=== PATIENT | female | born 1930 | race Caucasian/White ===

== ENCOUNTER 2017-06-04 14:38 | Inpatient (IN) | payer MEDICAID, MEDICARE ==
--- NOTE | 2017-06-04 14:52 | ED PDOC ---
Arrival/HPI - General Historian: Patient, Family - History of Present Illness Time/Duration: 1 week Symptom Onset: Gradual Symptom Course: Unchanged Quality: Stabbing Severity Level: 8 Activities at Onset: Rest Context: Home <Prashant Bowers - Last Filed: 06/04/17 18:22> <Archie Guerin DO - Last Filed: 06/04/17 20:51> - General Chief Complaint: Back Pain Time Seen by Provider: 06/04/17 14:51 - History of Present Illness Narrative History of Present Illness (Text): 87 F with PMH of DM, Seizures, HTN, chronic back pain presents to ED for complaint of Abdominal and BAck pain. Patient is [place] island[place] speaking and a poor historian. Family member bedside supplemented history. Patient states that the pain has been present for one week and has been the same. She rates the pain as 8/10. She describes it as a constant sharp pain located in flank bilaterally radiating anteriorly to abdomen. Nothing alleviates or exacerbates pain. Patient has had decreased PO intake recently. Patient states that she is compliant with medications. Admits to dysuria. Denies fever/chills, cp, sob, palpitations, n/v/d, constipation, incontinence. (Prashant Bowers) Past Medical History - Provider Review Nursing Documentation Reviewed: Yes - Travel History Have you recently traveled outside [place] w/in the past 3 mons?: No - Infectious Disease Hx of Infectious Diseases: None - Tetanus Immunization Tetanus Immunization: Unknown - Reproductive Menopause: Yes - Cardiac Hx Cardiac Disorders: Yes Hx Hypertension: Yes - Pulmonary Hx Chronic Obstructive Pulmonary Disease (COPD): Yes - Neurological Hx Neurological Disorder: Yes Hx Seizures: Yes - HEENT Hx Cataracts: Yes (bilateral sx) - Renal Hx Renal Disorder: Yes Hx Kidney Stones: Yes - Endocrine/Metabolic Hx Endocrine Disorders: Yes Hx Diabetes Mellitus Type 2: Yes - Hematological/Oncological Hx Blood Disorders: Yes Hx Anemia: Yes - Integumentary Hx Dermatological Disorder: No - Musculoskeletal/Rheumatological Hx Musculoskeletal Disorders: Yes Hx Arthritis: Yes Hx Falls: Yes - Gastrointestinal Hx Gastrointestinal Disorders: Yes Hx Gastroesophageal Reflux: Yes - Genitourinary/Gynecological Hx Genitourinary Disorders: No - Psychiatric Hx Psychophysiologic Disorder: Yes Hx Depression: Yes Hx Emotional Abuse: No Hx Physical Abuse: No Hx Substance Use: No - Surgical History Hx Cholecystectomy: Yes - Anesthesia Hx Anesthesia: Yes Hx Anesthesia Reactions: Yes Hx Malignant Hyperthermia: No - Suicidal Assessment Feels Threatened In Home Enviroment: No <RobinsonPrashant - Last Filed: 06/04/17 18:22> Family/Social History - Physician Review Nursing Documentation Reviewed: Yes Family/Social History: Unknown Family HX Smoking Status: Former Smoker Hx Alcohol Use: No Hx Substance Use: No Hx Substance Use Treatment: No <Prashant Bowers - Last Filed: 06/04/17 18:22> Allergies/Home Meds <YanasheriPrashant - Last Filed: 06/04/17 18:22> <Archie Guerin DO - Last Filed: 06/04/17 20:51> Allergies/Adverse Reactions: Allergies Penicillins Allergy (Verified 06/04/17 14:42) RASH Sulfa (Sulfonamide Antibiotics) Allergy (Verified 06/04/17 14:42) RASH Home Medications: Home Meds Medication Instructions Recorded Confirmed Insulin Human NPH/Reg [HumuLIN 10 units SC TID 06/15/14 06/04/17 70/30 (NPH/Reg)] Pro Air 2 inh INH Q4 PRN 06/15/14 06/04/17 Review of Systems - Review of Systems Constitutional: Fatigue. absent: Weight Change, Fevers, Night Sweats Eyes: absent: Vision Changes, Photophobia, Eye Pain ENT: absent: Hearing Changes, Tinnitus, TMJ Pain, Sinus Congestion Respiratory: absent: SOB, Cough, Sputum, Wheezing Cardiovascular: absent: Chest Pain, Palpitations, Syncope Gastrointestinal: Abdominal Pain. absent: Constipation, Diarrhea, Nausea, Vomiting Genitourinary Female: Dysuria. absent: Frequency, Hematuria, Vaginal Discharge Musculoskeletal: Arthralgias, Back Pain, Myalgias Skin: absent: Rash, Skin Lesions Neurological: absent: Headache, Dizziness, Focal Weakness, Seizure Endocrine: absent: Diaphoresis, Polyuria, Polydipsia, Other Hemo/Lymphatic: absent: Adenopathy, Easy Bleeding, Easy Bruising Psychiatric: absent: Anxiety, Depression, Suicidal Ideation <RobinsonPrashant - Last Filed: 06/04/17 18:22> Physical Exam Vital Signs Reviewed: Yes Temperature: Afebrile Blood Pressure: Normal Pulse: Regular Respiratory Rate: Normal Appearance: Positive for: Non-Toxic, Comfortable Pain Distress: Mild Mental Status: Positive for: Alert and Oriented X 3 - Systems Exam Head: Present: Atraumatic Pupils: Present: PERRL Extroacular Muscles: Present: EOMI Conjunctiva: Present: Normal Ears: Present: Normal Mouth: Present: Moist Mucous Membranes Pharnyx: Present: Normal Nose (External): Present: Atraumatic Nose (Internal): Present: Normal Inspection Neck: Present: Normal Range of Motion, Trachea Midline Respiratory/Chest: Present: Clear to Auscultation, Good Air Exchange. No: Respiratory Distress, Accessory Muscle Use, Wheezes, Rales, Rhonchi Cardiovascular: Present: Regular Rate and Rhythm, Normal S1, S2 Abdomen: Present: Tenderness, Normal Bowel Sounds. No: Distention, Peritoneal Signs, Rebound, Guarding, Hernias Back: Present: CVA Tenderness, Paraspinal Tenderness Upper Extremity: Present: Normal ROM, NORMAL PULSES, Neurovascularly Intact, Capillary Refill < 2s Lower Extremity: Present: NORMAL PULSES, Normal ROM, Neurovascularly Intact, Capillary Refill < 2 s Neurological: Present: GCS=15, CN II-XII Intact, Speech Normal, Motor Func Grossly Intact, Normal Sensory Function Skin: Present: Warm, Dry, Normal Color Lymphatic: No: Cervical Adenopathy, Axillary Adenopathy, Inguinal Adenopathy Psychiatric: Present: Alert, Oriented x 3, Normal Insight, Normal Concentration <Prashant Bowers - Last Filed: 06/04/17 18:22> <Archie Guerin DO - Last Filed: 06/04/17 20:51> Vital Signs Temp Pulse Resp BP Pulse Ox 06/04/17 19:32 99.7 F H 77 16 120/81 97 06/04/17 19:15 74 16 120/81 97 06/04/17 17:38 74 20 122/50 L 95 06/04/17 15:45 74 20 119/56 L 96 06/04/17 14:47 99.3 F 77 19 121/52 L 96 Medical Decision Making <Prashant Bowers - Last Filed: 06/04/17 18:22> <Archie Guerin DO - Last Filed: 06/04/17 20:51> ED Course and Treatment: CBC, CMP, VBG, Urinalysis, urine culture ordered. EKG done. IV fluids given. ABD /pelvis CT done and showed mass near cecum suspicious for malignancy or phlegmon. WBC elevated at 19K. Glucose 454 -> 330. IV Cipro and Flagyl given. Patient to be admitted under Dr. Hemphill's service. Case discussed with Dr. Hemphill he instructed to order General surgery consult, NPO diet, zofran and IV fluids. 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 (Prashant Bowers) In agreement with resident note, which includes further HPI details. Patient was seen and evaluated with resident, came up with plan and treatment together. (Archie Guerin DO) - Lab Interpretations Lab Results: 06/04/17 15:25 06/04/17 15:25 Lab Results 06/04/17 18:03: POC Glucose (mg/dL) 330 H 06/04/17 17:10: Urine Color Yellow, Urine Appearance Clear, Urine pH 6.0, Ur Specific [place] 1.015, Urine Protein Trace H, Urine Glucose (UA) 250 H, Urine Ketones Negative, Urine Blood Negative, Urine Nitrate Negative, Urine Bilirubin Negative, Urine Urobilinogen 0.2, Ur Leukocyte Esterase Negative, Urine RBC 0 - 2, Urine WBC 0 - 2, Ur Epithelial Cells 0 - 2, Urine Bacteria Few 06/04/17 16:00: pO2 28 L, VBG pH 7.37, VBG pCO2 52.0, VBG HCO3 30.1 H, VBG Total CO2 31.7 H, VBG O2 Sat (Calc) 57.1, VBG Base Excess 3.8 H, VBG Potassium 4.5, Glucose 446 H*, Lactate 1.4, FiO2 21.0, Sodium 129.0 L, Chloride 94.0 L, Venous Blood Potassium 4.5 06/04/17 15:25: Sodium 131 L, Potassium 4.6, Chloride 92 L, Carbon Dioxide 27, Anion Gap 17, BUN 29 H, Creatinine 0.9, Est GFR ( Amer) > 60, Est GFR ( Non-Af Amer) 59, Random Glucose 475 H* D, Calcium 9.9, Total Bilirubin 1.5 H, AST 26, ALT 13, Alkaline Phosphatase 130, Total Protein 8.5 H, Albumin 3.7, Globulin 4.8, Albumin/Globulin Ratio 0.8 L, Lipase 60 06/04/17 15:25: WBC 19.8 H D, RBC 4.14, Hgb 11.5 L, Hct 34.8 L, MCV 84.1, MCH 27.8, MCHC 33.0, RDW 13.9, Plt Count 376, MPV 10.8, Gran % 77.9 H, Lymph % (Auto ) 11.8 L, [place] % (Auto) 9.4 H, Eos % (Auto) 0.7 L, Baso % (Auto) 0.2, Gran # 15.45 H, Lymph # 2.3, [place] # 1.9 H, Eos # 0.1, Baso # 0.04 06/04/17 14:54: POC Glucose (mg/dL) 454 H* - RAD Interpretation Radiology Orders: 06/04/17 16:00 ABD & PELVIS W/O PO OR IV CONT [CT] Stat - Medication Orders Current Medication Orders: Sodium Chloride (Sodium Chloride 0.9%) 1,000 mls @ 100 mls/hr IV .Q10H STA Stop: 06/05/17 01:01 Last Admin: 06/04/17 15:16 Dose: 100 mls/hr Metronidazole (Flagyl) 500 mg in 100 mls @ 100 mls/hr IVPB Q8 ARTURO PRN Reason: Protocol Ceftriaxone Sodium (Rocephin 2 Gm Ivpb) 2 gm in 100 mls @ 100 mls/hr IVPB DAILY ARTURO PRN Reason: Protocol Discontinued Medications Sodium Chloride (Sodium Chloride 0.9%) 500 mls @ 999 mls/hr IV .Q31M STA Stop: 06/04/17 17:03 Last Admin: 06/04/17 17:39 Dose: 999 mls/hr Ciprofloxacin (Cipro 400mg/200ml Dsw) 400 mg in 200 mls @ 133.3 mls/hr IVPB STAT STA PRN Reason: Protocol Stop: 06/04/17 19:46 Last Admin: 06/04/17 19:03 Dose: 133.3 mls/hr Metronidazole (Flagyl) 500 mg in 100 mls @ 100 mls/hr IVPB STAT STA PRN Reason: Protocol Stop: 06/04/17 19:15 Insulin Human Regular (Humulin R) 6 units IVP STAT STA Stop: 06/04/17 16:33 Last Admin: 06/04/17 17:42 Dose: 6 units <Prashant Bowers Last Filed: 06/04/17 18:22> - PA / REGISTERED REPRESENTATIVE / Resident Statement ELIZABETH has reviewed & agrees with the documentation as recorded. ELIZABETH has examined the patient and agrees with the treatment plan. - Scribe Statement The provider has reviewed the documentation as recorded by the Scribe <Archie Guerin DO - Last Filed: 06/04/17 20:51> - Scribe Statement Vicky Owens Provider Scribe Attestation: All medical record entries made by the Scribe were at my direction and personally dictated by me. I have reviewed the chart and agree that the record accurately reflects my personal performance of the history, physical exam, medical decision making, and the department course for this patient. I have also personally directed, reviewed, and agree with the discharge instructions and disposition. (Archie Guerin DO) Disposition/Present on Arrival - Present on Arrival Any Indicators Present on Arrival: Yes History of DVT/PE: No History of Uncontrolled Diabetes: Yes Urinary Catheter: No History of Decub. Ulcer: No History Surgical Site Infection Following: None - Disposition Have Diagnosis and Disposition been Completed?: Yes Disposition Time: 18:10 Patient Plan: Admission <Prashant Bowers - Last Filed: 06/04/17 18:22> - Present on Arrival Any Indicators Present on Arrival: No History of Uncontrolled Diabetes: No - Disposition Have Diagnosis and Disposition been Completed?: Yes <Archie Guerin DO - Last Filed: 06/04/17 20:51> - Disposition Diagnosis: Abdominal pain Disposition: HOSPITALIZED Patient Problems: Current Active Problems Problem Status Onset Abdominal pain Acute Condition: FAIR
[2017-06-04] MEDS ORDERED: Sodium Chloride 0.9% 1,000 ML IV STA (15:02)
[2017-06-04 15:53] LABS: ALB/GLOB RATIO 0.8 (1.1-1.8); ALBUMIN 3.7 g/dL (3.0-4.8); ALT/SGPT 13 U/L (7-56); AST/SGOT 26 U/L (15-39); BASO # 0.04 K/mm3 (0.0-2.0); BASO % 0.2 % (0.0-3.0); BLOOD UREA NITROGEN 29 mg/dL (7-21); CALCIUM 9.9 mg/dL (8.4-10.5); EOS # 0.1 (0.0-0.7); EOS % 0.7 % (1.5-5.0); GFR AFRICAN-AMERICAN > 60; GFR NON-AFRICAN AMERICAN 59; GRAN # 15.45 (1.4-6.5); GRAN % 77.9 % (50.0-68.0); HEMOGLOBIN 11.5 gm/dL (12.0-16.0); LIPASE 60 U/L (23-300); LYMPH # 2.3 (1.2-3.4); LYMPH % 11.8 % (22.0-35.0); MEAN CELL VOLUME 84.1 fL (80.0-105.0); MEAN CORPUSCULAR HEMOGLOBIN 27.8 pg (25.0-35.0); MEAN PLATELET VOLUME 10.8 fl (7.0-11.0); MONO # 1.9 (0.1-0.6); MONO % 9.4 % (1.0-6.0); PLATELET COUNT 376 10^3/uL (120.0-450.0); RBC 4.14 10^6/uL (3.5-6.1); RED CELL DISTRIBUTION WIDTH 13.9 % (11.5-14.5); WHITE BLOOD COUNT 19.8 10^3/ul (4.5-11.0)
[2017-06-04 16:13] LABS: VENOUS BLOOD GAS BASE EXCESS 3.8 mmol/L (0.0-2.0); VENOUS BLOOD GAS PO2 28 mm/Hg (30-55); VENOUS BLOOD PH 7.37 (7.32-7.43)
[2017-06-04] MEDS ORDERED: Insulin Regular 1 UNITS/0.01 ML ML IVP STA (16:32)
[2017-06-04] MEDS ORDERED: Sodium Chloride 0.9% 500 ML IV STA (16:33)
--- NOTE | 2017-06-04 16:50 | CT ---
PROCEDURE: CT Abdomen and Pelvis without intravenous contrast HISTORY: b/l flank pain - pyelo vs. kidney stone COMPARISON: Comparison is made to the previous study dated 08/25/2015 TECHNIQUE: Axial and reformatted coronal and sagittal CT images of the abdomen and pelvis were obtained without IV or oral contrast administration.. Contrast Dose: 0 Radiation dose: Total exam DLP = 711.89 mGy-cm. This CT exam was performed using one or more of the following dose reduction techniques: Automated exposure control, adjustment of the mA and/or kV according to patient size, and/or use of iterative reconstruction technique. FINDINGS: LOWER THORAX: No evidence of acute pathology or pleural effusion LIVER: Mild hepatomegaly is again noted. GALLBLADDER AND BILE DUCTS: Patient status post cholecystectomy PANCREAS: Small size pancreas. The main pancreatic duct is not dilated SPLEEN: Unremarkable. ADRENALS: Unremarkable. No mass. KIDNEYS AND URETERS: There are bilateral small nonobstructing renal calculi larger and more on the right again seen. No evidence of significant hydronephrosis. The ureters are not dilated. Lobular appearance and cortical defects of the right kidney are again noted. VASCULATURE: Unremarkable. No aortic aneurysm. BOWEL: There is mass like opacity at or adjacent to the cecum measures 7.8 x 6 centimeter surrounding with fat stranding and mildly enlarged lymph nodes. The differential diagnosis includes malignant neoplasm of the ileocecal junction or cecal mass versus large phlegmon due to diverticulitis or less likely a appendicitis. No evidence of bowel obstruction. APPENDIX: The appendix is not clearly visualized in this study. PERITONEUM: Unremarkable. No free fluid. No free air. LYMPH NODES: Unremarkable. No enlarged lymph nodes. BLADDER: Unremarkable. REPRODUCTIVE: No significant change in the uterus and adnexa since the previous exam. The adnexa are slightly enlarged for the patient's age. BONES: Diffuse osteopenia is noted. Advanced degenerative changes at the mid and lower spine are again noted. OTHER FINDINGS: None. IMPRESSION: Oval-shaped density/mass at the right lower abdomen at or adjacent to the cecum may represent malignant neoplasm of the cecum versus less likely large phlegmon due to bowel perforation or appendicitis. Surrounding fat stranding in the right lower abdomen associated with mildly enlarged mesenteric lymph nodes. Bilateral small nonobstructing renal calculi larger and more on the right again noted. No evidence of hydronephrosis.
[2017-06-04 17:51] LABS: URINE BILIRUBIN NEGATIVE (NEGATIVE); URINE BLOOD NEGATIVE (NEGATIVE); URINE GLUCOSE (UA) 250 mg/dL (NEGATIVE); URINE LEUKOCYTE ESTERASE NEGATIVE Leu/uL (NEGATIVE); URINE NITRATE NEGATIVE (NEGATIVE); URINE PROTEIN TRACE mg/dL (<30 mg/dL); URINE UROBILINOGEN 0.2 E.U./dL (<1 E.U./dL)
[2017-06-04 17:52] LABS: URINE APPEARANCE CLEAR (CLEAR); URINE COLOR YELLOW (YELLOW)
[2017-06-04 18:02] LABS: URINE BACTERIA FEW (NEG); URINE EPITHELIAL CELLS 0 - 2 /hpf (0-5); URINE RBC 0 - 2 /hpf (0-2); URINE WBC 0 - 2 /hpf (0-6)
[2017-06-04] MEDS ORDERED: metroNIDAZOLE IV 500 mg/100 ml 500 MG/100 ML BAG IVPB STA (18:16)
[2017-06-04] MEDS ORDERED: Ciprofloxacin 400mg/200ml D5W 400 MG/200 ML BAG IVPB STA (18:16)
--- NOTE | 2017-06-04 19:11 | CP.PCM.CON ---
History of Present Illness - History of Present Illness History of Present Illness: General Surgery Dr. Larios 87 y/o F w/ PMHx of HTN, COPD, seizures, DM2, nephrolithiasis presents to the ED c/o R-sided abd pain x4days. Pain localized in R lumbar region w/ radiation across elbert-umbilical region. Pt denies having this pain before. Pain improves w / BM and worsens w/ movement or palpation. Pt admits to subjective F/C, constipation, and melena. Pt denies N/V, diarrhea, CP, SOB. PMHx: see above, anemia, arthritis, CKD, GERD meds: reviewed in chart All: PCN, Sulfa PSHx: tho rainey (2015), cataract surgery x2 SHx: denies tobacco, EtOH, drugs FHx: non-contributory Review of Systems - Review of Systems All systems: reviewed and no additional remarkable complaints except (see HPI) Past Patient History - Infectious Disease Hx of Infectious Diseases: None - Tetanus Immunizations Tetanus Immunization: Unknown - Past Social History Smoking Status: Former Smoker - CARDIAC Hx Cardiac Disorders: Yes Hx Hypertension: Yes - PULMONARY Hx Chronic Obstructive Pulmonary Disease (COPD): Yes - NEUROLOGICAL Hx Neurological Disorder: Yes Hx Seizures: Yes - HEENT Hx Cataracts: Yes (bilateral sx) - RENAL Hx Chronic Kidney Disease: Yes Hx Kidney Stones: Yes - ENDOCRINE/METABOLIC Hx Endocrine Disorders: Yes Hx Diabetes Mellitus Type 2: Yes - HEMATOLOGICAL/ONCOLOGICAL Hx Blood Disorders: Yes Hx Anemia: Yes - INTEGUMENTARY Hx Dermatological Problems: No - MUSCULOSKELETAL/RHEUMATOLOGICAL Hx Musculoskeletal Disorders: Yes Hx Arthritis: Yes Hx Falls: Yes - GASTROINTESTINAL Hx Gastrointestinal Disorders: Yes Hx Gastroesophageal Reflux: Yes - GENITOURINARY/GYNECOLOGICAL Hx Genitourinary Disorders: No - PSYCHIATRIC Hx Psychophysiologic Disorder: Yes Hx Depression: Yes Hx Emotional Abuse: No Hx Physical Abuse: No Hx Substance Use: No - SURGICAL HISTORY Hx Cholecystectomy: Yes - ANESTHESIA Hx Anesthesia: Yes Hx Anesthesia Reactions: Yes Hx Malignant Hyperthermia: No Meds Allergies/Adverse Reactions: Allergies Allergy/AdvReac Type Severity Reaction Status Date / Time Penicillins Allergy RASH Verified 06/04/17 14:42 Sulfa (Sulfonamide Allergy RASH Verified 06/04/17 14:42 Antibiotics) - Medications Medications: Current Medications Sodium Chloride (Sodium Chloride 0.9%) 1,000 mls @ 100 mls/hr IV .Q10H STA Stop: 06/05/17 01:01 Last Admin: 06/04/17 15:16 Dose: 100 mls/hr Ciprofloxacin (Cipro 400mg/200ml Dsw) 400 mg in 200 mls @ 133.3 mls/hr IVPB STAT STA PRN Reason: Protocol Stop: 06/04/17 19:46 Last Admin: 06/04/17 19:03 Dose: 133.3 mls/hr Metronidazole (Flagyl) 500 mg in 100 mls @ 100 mls/hr IVPB STAT STA PRN Reason: Protocol Stop: 06/04/17 19:15 Physical Exam - Constitutional Appears: Non-toxic, No Acute Distress - Head Exam Head Exam: NORMAL INSPECTION - Eye Exam Eye Exam: Normal appearance - ENT Exam ENT Exam: Mucous Membranes Moist - Respiratory Exam Respiratory Exam: NORMAL BREATHING PATTERN. absent: Accessory Muscle Use, Respiratory Distress - Cardiovascular Exam Cardiovascular Exam: absent: Bradycardia, Tachycardia - GI/Abdominal Exam GI & Abdominal Exam: Soft, Tenderness (R lumbar/elbert-umbilical region). absent : Distended, Firm, Guarding - Extremities Exam Extremities exam: Positive for: tenderness. Negative for: pedal edema - Back Exam Back exam: CVA tenderness (R) - Neurological Exam Neurological exam: Alert, Oriented x3 - Psychiatric Exam Psychiatric exam: Normal Affect, Normal Mood - Skin Skin Exam: Dry, Intact, Normal Color, Warm Results - Vital Signs Recent Vital Signs: Last Vital Signs Temp 99.3 F 06/04/17 14:47 Pulse 74 06/04/17 17:38 Resp 20 06/04/17 17:38 BP 122/50 L 06/04/17 17:38 Pulse Ox 95 06/04/17 17:38 - Labs Result Diagrams: 06/04/17 15:25 06/04/17 15:25 Labs: Laboratory Results - last 24 hr 06/04/17 06/04/17 06/04/17 14:54 15:25 15:25 WBC 19.8 H D RBC 4.14 Hgb 11.5 L Hct 34.8 L MCV 84.1 MCH 27.8 MCHC 33.0 RDW 13.9 Plt Count 376 MPV 10.8 Gran % 77.9 H Lymph % (Auto) 11.8 L [place] % (Auto) 9.4 H Eos % (Auto) 0.7 L Baso % (Auto) 0.2 Gran # 15.45 H Lymph # 2.3 [place] # 1.9 H Eos # 0.1 Baso # 0.04 pO2 VBG pH VBG pCO2 VBG HCO3 VBG Total CO2 VBG O2 Sat (Calc) VBG Base Excess VBG Potassium Glucose Lactate FiO2 Sodium 131 L Potassium 4.6 Chloride 92 L Carbon Dioxide 27 Anion Gap 17 BUN 29 H Creatinine 0.9 Est GFR ( Amer) > 60 Est GFR (Non-Af Amer) 59 POC Glucose (mg/dL) 454 H* Random Glucose 475 H* D Calcium 9.9 Total Bilirubin 1.5 H AST 26 ALT 13 Alkaline Phosphatase 130 Total Protein 8.5 H Albumin 3.7 Globulin 4.8 Albumin/Globulin Ratio 0.8 L Lipase 60 Venous Blood Potassium Urine Color Urine Appearance Urine pH Ur Specific [place] Urine Protein Urine Glucose (UA) Urine Ketones Urine Blood Urine Nitrate Urine Bilirubin Urine Urobilinogen Ur Leukocyte Esterase Urine RBC Urine WBC Ur Epithelial Cells Urine Bacteria 06/04/17 06/04/17 06/04/17 16:00 17:10 18:03 WBC RBC Hgb Hct MCV MCH MCHC RDW Plt Count MPV Gran % Lymph % (Auto) [place] % (Auto) Eos % (Auto) Baso % (Auto) Gran # Lymph # [place] # Eos # Baso # pO2 28 L VBG pH 7.37 VBG pCO2 52.0 VBG HCO3 30.1 H VBG Total CO2 31.7 H VBG O2 Sat (Calc) 57.1 VBG Base Excess 3.8 H VBG Potassium 4.5 Glucose 446 H* Lactate 1.4 FiO2 21.0 Sodium 129.0 L Potassium Chloride 94.0 L Carbon Dioxide Anion Gap BUN Creatinine Est GFR ( Amer) Est GFR (Non-Af Amer) POC Glucose (mg/dL) 330 H Random Glucose Calcium Total Bilirubin AST ALT Alkaline Phosphatase Total Protein Albumin Globulin Albumin/Globulin Ratio Lipase Venous Blood Potassium 4.5 Urine Color Yellow Urine Appearance Clear Urine pH 6.0 Ur Specific [place] 1.015 Urine Protein Trace H Urine Glucose (UA) 250 H Urine Ketones Negative Urine Blood Negative Urine Nitrate Negative Urine Bilirubin Negative Urine Urobilinogen 0.2 Ur Leukocyte Esterase Negative Urine RBC 0 - 2 Urine WBC 0 - 2 Ur Epithelial Cells 0 - 2 Urine Bacteria Few - Imaging and Cardiology CT scan - abdomen Status: Image reviewed by me, Report reviewed by me Assessment & Plan - Assessment and Plan (Free Text) Assessment: 87 y/o F w/ abd pain, ileocecal mass present on CT scan - NPO, IVF - IV Abx: Rocephin, Flagyl - pain management - Zofran if needed for nausea - GI consult: known pt of Dr. Joyner - f/u recs - recommend repeat CT tomorrow w/ PO contrast - GI/DVT PPx Will discuss w/ Dr. Ric Ortiz DO PGY2
[2017-06-04] MEDS: Sodium Chloride 0.45% 1,000 ML IV SCH (21:20)
[2017-06-04] MEDS: Insulin Reg-HIGH-Coverage SC SCH (21:48)
[2017-06-04] MEDS: metroNIDAZOLE IV 500 mg/100 ml 500 MG/100 ML BAG IVPB SCH (21:55)
[2017-06-04] MEDS: Morphine 4 mg/ml ISec IVP PRN (21:55)
[2017-06-05] MEDS: Morphine 4 mg/ml ISec IVP PRN ×3 (02:02→20:42)
[2017-06-05] MEDS: metroNIDAZOLE IV 500 mg/100 ml 500 MG/100 ML BAG IVPB SCH ×3 (05:59→22:00)
[2017-06-05] MEDS: Aztreonam 1 Gm in NS 100mL 100 ML IVPB SCH ×3 (06:58→22:00)
[2017-06-05 07:47] LABS: BASO # 0.03 K/mm3 (0.0-2.0); BASO % 0.1 % (0.0-3.0); EOS # 0.1 (0.0-0.7); EOS % 0.5 % (1.5-5.0); GRAN # 18.61 (1.4-6.5); GRAN % 82.9 % (50.0-68.0); HEMOGLOBIN 10.5 gm/dL (12.0-16.0); LYMPH # 1.7 (1.2-3.4); LYMPH % 7.4 % (22.0-35.0); MEAN CELL VOLUME 84.5 fL (80.0-105.0); MEAN CORPUSCULAR HEMOGLOBIN 27.6 pg (25.0-35.0); MEAN CORPUSCULAR HGB CONC 32.7 g/dl (31.0-37.0); MEAN PLATELET VOLUME 10.5 fl (7.0-11.0); MONO % 9.1 % (1.0-6.0); PLATELET COUNT 327 10^3/uL (120.0-450.0); WHITE BLOOD COUNT 22.5 10^3/ul (4.5-11.0)
[2017-06-05 07:59] LABS: ALB/GLOB RATIO 0.7 (1.1-1.8); ALBUMIN 3.1 g/dL (3.0-4.8); ALT/SGPT 23 U/L (7-56); AST/SGOT 33 U/L (15-39); BLOOD UREA NITROGEN 26 mg/dL (7-21); CALCIUM 9.4 mg/dL (8.4-10.5); GFR AFRICAN-AMERICAN > 60; GFR NON-AFRICAN AMERICAN 59
[2017-06-05] MEDS: Insulin Reg-HIGH-Coverage SC SCH ×2 (08:40→11:39)
--- NOTE | 2017-06-05 09:27 | CARD ---
APPROVED REPORT EKG Measurement Heart [id number] <Conclusion> Sinus rhythm with marked sinus arrhythmia Otherwise normal ECG
[2017-06-05] MEDS: Metoprolol Succinate 25 mg XL Tab PO SCH (09:54)
[2017-06-05] MEDS: POLYETHYLENE GLYCOL 3350 17 GM/Dose PACKET PO SCH (09:54)
[2017-06-05] MEDS ORDERED: cefTRIAXone 2 GM IN NS 2 GM/100 ML BAG IVPB SCH (10:00)
[2017-06-05] MEDS ORDERED: Ciprofloxacin 400mg/200ml D5W 400 MG/200 ML BAG IVPB SCH (10:00)
--- NOTE | 2017-06-05 11:04 | CP.PCM.PN ---
Subjective - Date & Time of Evaluation Date of Evaluation: 06/05/17 Time of Evaluation: 10:59 - Subjective Subjective: General Surgery Progress note for Dr. Larios PT S&E at bedside. Patient states nausea and pain started four days ago and has never happened before. Patient had a lot of gas at bedside and eructation. Patient eructated at bedside and showed signs of nausea. Patient admits to constipation. Patient denies f/c, diarrhea, melena. Objective - Vital Signs/Intake and Output Vital Signs (last 24 hours): Temp Pulse Resp BP Pulse Ox 98.3 F 82 20 156/58 H 97 06/05/17 08:23 06/05/17 08:23 06/05/17 08:23 06/05/17 09:54 06/05/17 08:23 Intake and Output: 06/05/17 06/05/17 06:59 18:59 Intake Total 0 Balance 0 - Medications Medications: Current Medications Hydralazine HCl (Apresoline) 10 mg PO QID PRN PRN Reason: Systolic Blood Pressure Last Admin: 06/04/17 21:54 Dose: 10 mg Metronidazole (Flagyl) 500 mg in 100 mls @ 100 mls/hr IVPB Q8 ARTURO PRN Reason: Protocol Last Admin: 06/05/17 05:59 Dose: 100 mls/hr Sodium Chloride (Sodium Chloride 0.45%) 1,000 mls @ 40 mls/hr IV .Q24H [facility] Last Admin: 06/04/17 21:20 Dose: 40 mls/hr Aztreonam (Azactam 1 Gm) 100 mls @ 100 mls/hr IVPB Q8 ARTURO PRN Reason: Protocol Stop: 06/11/17 06:46 Last Admin: 06/05/17 06:58 Dose: 100 mls/hr Insulin Human Regular (Humulin R High) 0 units SC ACHS ARTURO PRN Reason: Protocol Last Admin: 06/05/17 08:40 Dose: 7 units Levetiracetam (Keppra) 250 mg PO BID [facility] Last Admin: 06/05/17 09:55 Dose: 250 mg Metoprolol Succinate (Toprol Xl) 25 mg PO DAILY [facility] Last Admin: 06/05/17 09:54 Dose: 25 mg Montelukast Sodium (Singulair) 10 mg PO HS [facility] Morphine Sulfate (Morphine) 4 mg IVP Q4H PRN PRN Reason: moderate to severe pain Last Admin: 06/05/17 06:00 Dose: 4 mg Ondansetron HCl (Zofran Inj) 4 mg IVP Q8H PRN PRN Reason: Nausea/Vomiting Last Admin: 06/05/17 07:28 Dose: 4 mg Pantoprazole Sodium (Protonix Inj) 40 mg IVP DAILY [facility] Last Admin: 06/05/17 09:55 Dose: 40 mg Polyethylene Glycol (Miralax) 17 gm PO DAILY [facility] Last Admin: 06/05/17 09:54 Dose: Not Given - Labs Labs: 06/05/17 07:00 06/05/17 07:00 - Head Exam Head Exam: ATRAUMATIC, NORMAL INSPECTION Assessment and Plan - Assessment and Plan (Free Text) Assessment: 87F presents with abdominal pain, ileocecal mass. Plan: f/u GI recommendation for colonoscopy f/u CT 06/05 w/ PO and IV contrast will schedule OR for continue observing on the floor. when patient is stable enough, transfer to TCU to monitor prior to surgery discussed with Dr. iRc Warren, PGY1
[2017-06-05 12:21] VITALS: BMI 32.2
--- NOTE | 2017-06-05 12:28 | CP.PCM.CON ---
History of Present Illness - History of Present Illness History of Present Illness: 87 year old female with PMH of COPD, HTN, DM, seizure disorder, history of nephrolithiasis, S/P laparoscopic cholecystectomy, S/P cataract surgery was brought in to [facility] because of abdominal pain, which was on the right side and periumbilical area. The patient has no diarrhea, no vomiting , no nausea, no headache or dizziness, no cough or SOB, no chest pain, no fever or chills. In the ED, CT scan of the abdomen and pelvis showed possible cecal mass or phlegmon. The patient was also noted to have leukocytosis. Infectious Diseases consult is requested to further evaluate and manage. General Surgery Dr. Larios 87 y/o F w/ PMHx of HTN, COPD, seizures, DM2, nephrolithiasis presents to the ED c/o R-sided abd pain x4days. Pain localized in R lumbar region w/ radiation across elbert-umbilical region. Pt denies having this pain before. Pain improves w / BM and worsens w/ movement or palpation. Pt admits to subjective F/C, constipation, and melena. Pt denies N/V, diarrhea, CP, SOB. PMHx: see above, anemia, arthritis, CKD, GERD meds: reviewed in chart All: PCN, Sulfa PSHx: tho rainey (2015), cataract surgery x2 SHx: denies tobacco, EtOH, drugs FHx: non-contributory Review of Systems - Review of Systems All systems: reviewed and no additional remarkable complaints except (as per HPI ) Past Patient History - Infectious Disease Hx of Infectious Diseases: None - Tetanus Immunizations Tetanus Immunization: Unknown - Past Social History Smoking Status: Former Smoker - CARDIAC Hx Cardiac Disorders: Yes Hx Hypertension: Yes - PULMONARY Hx Chronic Obstructive Pulmonary Disease (COPD): Yes - NEUROLOGICAL Hx Neurological Disorder: Yes Hx Seizures: Yes - HEENT Hx Cataracts: Yes (bilateral sx) - RENAL Hx Chronic Kidney Disease: Yes Hx Kidney Stones: Yes - ENDOCRINE/METABOLIC Hx Endocrine Disorders: Yes Hx Diabetes Mellitus Type 2: Yes - HEMATOLOGICAL/ONCOLOGICAL Hx Blood Disorders: Yes Hx Anemia: Yes - INTEGUMENTARY Hx Dermatological Problems: No - MUSCULOSKELETAL/RHEUMATOLOGICAL Hx Musculoskeletal Disorders: Yes Hx Arthritis: Yes Hx Falls: Yes - GASTROINTESTINAL Hx Gastrointestinal Disorders: Yes Hx Gastroesophageal Reflux: Yes - GENITOURINARY/GYNECOLOGICAL Hx Genitourinary Disorders: No - PSYCHIATRIC Hx Psychophysiologic Disorder: Yes Hx Depression: Yes Hx Emotional Abuse: No Hx Physical Abuse: No - SURGICAL HISTORY Hx Cholecystectomy: Yes - ANESTHESIA Hx Anesthesia: Yes Hx Anesthesia Reactions: Yes Hx Malignant Hyperthermia: No Meds Allergies/Adverse Reactions: Allergies Allergy/AdvReac Type Severity Reaction Status Date / Time Penicillins Allergy RASH Verified 06/04/17 14:42 Sulfa (Sulfonamide Allergy RASH Verified 06/04/17 14:42 Antibiotics) - Medications Medications: Current Medications Hydralazine HCl (Apresoline) 10 mg PO QID PRN PRN Reason: Systolic Blood Pressure Last Admin: 06/04/17 21:54 Dose: 10 mg Metronidazole (Flagyl) 500 mg in 100 mls @ 100 mls/hr IVPB Q8 [facility] PRN Reason: Protocol Last Admin: 06/05/17 05:59 Dose: 100 mls/hr Ceftriaxone Sodium (Rocephin 2 Gm Ivpb) 2 gm in 100 mls @ 100 mls/hr IVPB DAILY [facility] PRN Reason: Protocol Sodium Chloride (Sodium Chloride 0.45%) 1,000 mls @ 40 mls/hr IV .Q24H [facility] Last Admin: 06/04/17 21:20 Dose: 40 mls/hr Ciprofloxacin (Cipro 400mg/200ml Dsw) 400 mg in 200 mls @ 133.3 mls/hr IVPB Q12 [facility] PRN Reason: Protocol Stop: 06/05/17 11:31 Insulin Human Regular (Humulin R High) 0 units SC ACHS [facility] PRN Reason: Protocol Last Admin: 06/04/17 21:48 Dose: Not Given Levetiracetam (Keppra) 250 mg PO BID [facility] Metoprolol Succinate (Toprol Xl) 25 mg PO DAILY [facility] Montelukast Sodium (Singulair) 10 mg PO HS [facility] Morphine Sulfate (Morphine) 4 mg IVP Q4H PRN PRN Reason: moderate to severe pain Last Admin: 06/05/17 06:00 Dose: 4 mg Ondansetron HCl (Zofran Inj) 4 mg IVP Q8H PRN PRN Reason: Nausea/Vomiting Last Admin: 06/05/17 01:04 Dose: 4 mg Pantoprazole Sodium (Protonix Inj) 40 mg IVP DAILY [facility] Polyethylene Glycol (Miralax) 17 gm PO DAILY [facility] Physical Exam - Constitutional Appears: Non-toxic, No Acute Distress - Head Exam Head Exam: NORMAL INSPECTION - ENT Exam ENT Exam: Mucous Membranes Moist - Neck Exam Neck exam: Negative for: Meningismus - Respiratory Exam Respiratory Exam: Decreased Breath Sounds - Cardiovascular Exam Cardiovascular Exam: +S1, +S2 - GI/Abdominal Exam GI & Abdominal Exam: Soft, Tenderness (mild, right lower quadrant area). absent : Distended, Firm, Guarding, Rebound, Rigid Results - Vital Signs Recent Vital Signs: Last Vital Signs Temp 98.9 F 06/05/17 00:00 Pulse 77 06/05/17 00:00 Resp 20 06/05/17 00:00 BP 130/60 06/05/17 00:00 Pulse Ox 96 06/05/17 00:00 - Labs Result Diagrams: 06/05/17 07:00 06/05/17 07:00 Labs: Laboratory Results - last 24 hr 06/04/17 21:34 POC Glucose (mg/dL) 290 H Assessment & Plan - Assessment and Plan (Free Text) Plan: Assessment Systemic Inflammatory Response Syndrome, R/O sepsis from right lower quadrant phelgmon from possible cecal mass COPD HTN DM seizure disorder history of nephrolithiasis S/P laparoscopic cholecystectomy S/P cataract surgery obesity with BMI 32 Plan Started patient on Azactam and flagyl and Vancomycin and will follow up blood cx , plan of Surgery and GI will monitor clinically
[2017-06-05] MEDS ORDERED: Iohexol 240 (50 ml) ONE (13:27)
[2017-06-05] MEDS ORDERED: Iohexol 350 MG/100 ML VIAL ONE (15:54)
[2017-06-05] MEDS: Insulin Reg-LOW-Coverage SC SCH ×2 (17:31→22:00)
--- NOTE | 2017-06-05 17:56 | CT ---
PROCEDURE: CT abdomen and pelvis dated 06/05/2017 HISTORY: Ileocecal mass. COMPARISON: None. Comparison made with prior study dated 06/04/2017 at 1613 hours TECHNIQUE: Contiguous helical/ transaxial images of the abdomen and pelvis. Oral contrast was administered. No IV contrast given. Coronal and Sagittal reformats generated. Radiation dose: Total exam DLP = 960.18 mGy-cm. This CT exam was performed using one or more of the following dose reduction techniques: Automated exposure control, adjustment of the mA and/or kV according to patient size, and/or use of iterative reconstruction technique. FINDINGS: LOWER THORAX: Minor passive atelectasis both lung bases however lung bases are otherwise clear. No infiltrate effusion or basilar pneumothorax. There is a small to medium size hiatal hernia with wall thickening of the distal esophagus that could be due to protrusion of gastric mucosa. Possibility of esophagitis not excluded. There is also small amount of oral contrast material within the distal esophagus that could be due to dysmotility or gastroesophageal reflux. LIVER: Liver exhibits normal size measuring approximately 11.2 cm in CC dimension. Mild fatty hepatic infiltration suspected. No obvious hepatic mass or collection. Portal and splenic veins are opacified. GALLBLADDER AND BILE DUCTS: Re- demonstrated are changes of cholecystectomy with absent gallbladder and metallic clips in the gallbladder fossa PANCREAS: The pancreas is atrophic and fatty replaced unchanged. No obvious pancreatic mass or collection. . SPLEEN: Spleen exhibits normal size and attenuation pattern without mass collection or ADRENALS: Small approximately 15.4 mm elliptical shaped left adrenal nodule. Right adrenal gland unremarkable. . KIDNEYS AND URETERS: Multiple tiny nonobstructing calculi seen throughout the right kidney with a 1 or 2 punctate calcifications left kidney. There appears to be cortical scarring changes both kidneys right more significant than left. No evidence of hydronephrosis. . BLADDER: The urinary bladder is physiologically distended. No evidence of intraluminal urinary bladder calculi. REPRODUCTIVE: Uterus appears unremarkable and unchanged from prior study. Prominent adnexa for patient's age. APPENDIX: The appendix is not seen with complete certainty. BOWEL: Re- demonstrated is a heterogeneous enhancing rounded soft tissue mass density at the level of the cecum as/ileocecal valve. These findings are of uncertain etiology though differential diagnosis would include inflammatory/ infectious process such is ruptured appendix, typhlitis or right-sided acute diverticulitis. Possibility of perforated colon carcinoma with surrounding inflammation not excluded. Clinical correlation recommended. Infiltration changes are seen in the adjacent surrounding mesentery. PERITONEUM: No gross free air or fluid. Small fat containing umbilical hernia. LYMPH NODES: Unremarkable. No enlarged lymph nodes. VASCULATURE: No evidence of aortic aneurysm. . There is localized atherosclerotic plaque projecting into the posterior margin of the nominal aorta at the level of the SMA. BONES: Multilevel degenerative spondylosis of the lower thoracic and lumbar spine. OTHER FINDINGS: None. IMPRESSION: Re- demonstrated is a large heterogeneous cecal masslike density with areas of enhancement and low attenuation. Infiltration changes in the adjacent mesenteric. Findings are of uncertain etiology though differential diagnosis would include inflammatory/infectious process such is ruptured appendix, typhlitis or right-sided acute diverticulitis. The possibility of a perforated colon carcinoma with surrounding inflammation not excluded. Clinical correlation recommended. Re- demonstrated are the multiple small nonobstructing calculi both kidneys. Cortical scarring changes right kidney. Status post cholecystectomy. See above discussion for additional findings and details.
--- NOTE | 2017-06-05 20:50 | CP.PCM.PN ---
Subjective - Date & Time of Evaluation Date of Evaluation: 06/05/17 Time of Evaluation: 20:47 - Subjective Subjective: Patient was seen because nurse said she was "Completely out of it" and they have applied restraints. She is trying to get out of bed.Has pulled out her heparin lock. Does not respond to any questions. 87 year old woman admitted with right sided and periumbilical abdominal pain, back pain. PMH:HTN,Asthma, COPD, DM,GERD, Seizure , dementia, depression, fall , laparoscopic cholecystectomy, nephrolithiasis, Objective - Vital Signs/Intake and Output Vital Signs (last 24 hours): Temp Pulse Resp BP Pulse Ox 97.2 F L 68 18 134/57 L 95 06/05/17 16:30 06/05/17 16:30 06/05/17 16:30 06/05/17 16:30 06/05/17 16:30 Intake and Output: 06/05/17 06/06/17 18:59 06:59 Intake Total 0 Output Total 200 Balance -200 - Medications Medications: Current Medications Hydralazine HCl (Apresoline) 10 mg PO QID PRN PRN Reason: Systolic Blood Pressure Last Admin: 06/04/17 21:54 Dose: 10 mg Metronidazole (Flagyl) 500 mg in 100 mls @ 100 mls/hr IVPB Q8 [facility] PRN Reason: Protocol Last Admin: 06/05/17 13:12 Dose: 100 mls/hr Sodium Chloride (Sodium Chloride 0.45%) 1,000 mls @ 40 mls/hr IV .Q24H [facility] Last Admin: 06/04/17 21:20 Dose: 40 mls/hr Aztreonam (Azactam 1 Gm) 100 mls @ 100 mls/hr IVPB Q8 [facility] PRN Reason: Protocol Stop: 06/11/17 06:46 Last Admin: 06/05/17 14:49 Dose: 100 mls/hr Insulin Detemir (Levemir) [address] [facility] Insulin Detemir (Levemir) [address] [facility] Insulin Human Regular (Humulin R Low) 0 units SC ACHS [facility] PRN Reason: Protocol Last Admin: 06/05/17 17:31 Dose: 3 units Levetiracetam (Keppra) [address] [facility] Last Admin: 07/15/17 17:31 Dose: 250 mg Metoprolol Succinate (Toprol Xl) [address] [facility] Last Admin: 06/05/17 09:54 Dose: 25 mg Montelukast Sodium (Singulair) 10 mg PO [facility] Morphine Sulfate (Morphine) 4 mg IVP Q4H PRN PRN Reason: moderate to severe pain Last Admin: 06/05/17 20:42 Dose: 4 mg Ondansetron HCl (Zofran Inj) 4 mg IVP Q4 PRN PRN Reason: Nausea/Vomiting Pantoprazole Sodium (Protonix Inj) [address] [facility] Last Admin: 06/05/17 09:55 Dose: 40 mg Polyethylene Glycol (Miralax) [address] [facility] Last Admin: 06/05/17 09:54 Dose: Not Given - Labs Labs: 06/05/17 07:00 06/05/17 07:00 Microbiology Studies 06/04/17 16:15 Blood Culture - Preliminary Blood NO GROWTH AFTER 24 HOURS 06/04/17 16:00 Blood Culture - Preliminary Blood NO GROWTH AFTER 24 HOURS 06/04/17 17:10 Urine Culture - Preliminary Urine No growth. Lab Studies 06/05/17 06/05/17 06/05/17 Range/Units 11:09 07:05 07:00 WBC (4.5-11.0) 10^3/ul RBC (3.5-6.1) 10^6/uL Hgb (12.0-16.0) gm/dL Hct (36.0-48.0) % MCV (80.0-105.0) fL MCH (25.0-35.0) pg MCHC (31.0-37.0) g/dl RDW (11.5-14.5) % Plt Count (120.0-450.0) 10^3/uL MPV (7.0-11.0) fl Gran % (50.0-68.0) % Lymph % (Auto) (22.0-35.0) % [place] % (Auto) (1.0-6.0) % Eos % (Auto) (1.5-5.0) % Baso % (Auto) (0.0-3.0) % Gran # (1.4-6.5) Lymph # (1.2-3.4) [place] # (0.1-0.6) Eos # (0.0-0.7) Baso # (0.0-2.0) K/mm3 Sodium 132 (132-148) mmol/L Potassium 5.1 H (3.6-5.0) mmol/L Chloride 97 L (98-107) mmol/L Carbon Dioxide 26 (21-33) mmol/L Anion Gap 14 (10-20) BUN 26 H (7-21) mg/dL Creatinine 0.9 (0.5-1.4) mg/dL Est GFR ( Amer) > 60 Est GFR (Non-Af Amer) 59 POC Glucose (mg/dL) 301 H 284 H (65-110) mg/dL Random Glucose 327 H* D (70-110) mg/dL Calcium 9.4 (8.4-10.5) mg/dL Total Bilirubin 1.4 H (0.2-1.3) mg/dL AST 33 (15-39) U/L ALT 23 (7-56) U/L Alkaline Phosphatase 121 (38-133) U/L Total Protein 7.5 (5.8-8.3) g/dL Albumin 3.1 (3.0-4.8) g/dL Globulin 4.4 gm/dL Albumin/Globulin Ratio 0.7 L (1.1-1.8) 06/05/17 Range/Units 07:00 WBC 22.5 H (4.5-11.0) 10^3/ul RBC 3.80 (3.5-6.1) 10^6/uL Hgb 10.5 L (12.0-16.0) gm/dL Hct 32.1 L (36.0-48.0) % MCV 84.5 (80.0-105.0) fL MCH 27.6 (25.0-35.0) pg MCHC 32.7 (31.0-37.0) g/dl RDW 14.0 (11.5-14.5) % Plt Count 327 (120.0-450.0) 10^3/uL MPV 10.5 (7.0-11.0) fl Gran % 82.9 H (50.0-68.0) % Lymph % (Auto) 7.4 L (22.0-35.0) % [place] % (Auto) 9.1 H (1.0-6.0) % Eos % (Auto) 0.5 L (1.5-5.0) % Baso % (Auto) 0.1 (0.0-3.0) % Gran # 18.61 H (1.4-6.5) Lymph # 1.7 (1.2-3.4) [place] # 2.0 H (0.1-0.6) Eos # 0.1 (0.0-0.7) Baso # 0.03 (0.0-2.0) K/mm3 Sodium (132-148) mmol/L Potassium (3.6-5.0) mmol/L Chloride (98-107) mmol/L Carbon Dioxide (21-33) mmol/L Anion Gap (10-20) BUN (7-21) mg/dL Creatinine (0.5-1.4) mg/dL Est GFR ( Amer) Est GFR (Non-Af Amer) POC Glucose (mg/dL) (65-110) mg/dL Random Glucose (70-110) mg/dL Calcium (8.4-10.5) mg/dL Total Bilirubin (0.2-1.3) mg/dL AST (15-39) U/L ALT (7-56) U/L Alkaline Phosphatase (38-133) U/L Total Protein (5.8-8.3) g/dL Albumin (3.0-4.8) g/dL Globulin gm/dL Albumin/Globulin Ratio (1.1-1.8) - Constitutional Appears: Well, No Acute Distress - Head Exam Head Exam: ATRAUMATIC, NORMAL INSPECTION, NORMOCEPHALIC - Eye Exam Eye Exam: Normal appearance - ENT Exam ENT Exam: Normal External Ear Exam - Neck Exam Neck Exam: Normal Inspection - Respiratory Exam Respiratory Exam: NORMAL BREATHING PATTERN - Cardiovascular Exam Cardiovascular Exam: absent: JVD - GI/Abdominal Exam GI & Abdominal Exam: absent: Distended - Rectal Exam Rectal Exam: Deferred - Exam Additional comments: Deferred. - Extremities Exam Extremities Exam: Normal Inspection - Back Exam Back Exam: NORMAL INSPECTION - Neurological Exam Neurological Exam: Altered - Psychiatric Exam Psychiatric exam: Agitated - Skin Skin Exam: Normal Color Assessment and Plan - Assessment and Plan (Free Text) Assessment: Dementia. Agitation. Hypertension. COPD. NIDDM. GERD. Seizure. Depression. Plan: NIKUNJ Vest restraint ordered. Ativan 0.5 mg IM stat. FSBS-230 mg %. Continue present management.
[2017-06-05] MEDS ORDERED: Insulin Detemir 100 units/ml Vial (Levemir) SC SCH (22:00)
--- NOTE | 2017-06-05 22:13 | HP ---
HISTORY OF PRESENT ILLNESS: I got a call from the emergency room last night. This young lady with abdominal pain, not feeling well. She speaks Vietnamese. Her daughter is with her this morning, who takes care of her. She is an 87-year-old female with past medical history of diabetes, seizures, hypertension, chronic back pain, who now has severe abdominal pain; it has been present for about a week, 8/10, very sharp, she could not take it anymore, and they took her to the emergency room. PAST MEDICAL HISTORY: She has a past medical history of menopause, hypertension, COPD, seizures, bilateral cataracts, kidney stones, type 2 diabetes; which is kind of out of control right now, anemia, arthritis, multiple falls. She has GERD, depression. PAST SURGICAL HISTORY: She has had a cholecystectomy in the past. FAMILY HISTORY: There is hypertension in the family. SOCIAL HISTORY: She is a former smoker. No alcohol, no drugs. ALLERGY: SHE HAS ALLERGY TO PENICILLIN. MEDICATIONS: She takes numerous medications. She is on insulin, Ultram, Keppra, hydralazine, MiraLax, Protonix, Percocet, Zofran, Singulair, Toprol, Namenda, Antivert, meclizine, Neurontin, and Colace. REVIEW OF SYSTEMS: On review of systems, she is definitely fatigued. No acute vision changes or hearing changes, but old. No shortness of breath, no chest pain. There is abdominal pain. No nausea, vomiting,or constipation. No diarrhea, though there is problem urinating. There is back pain and joint pains that is usual. No rashes, no headaches, or dizziness. Not sweating. She does not easily bleed. Little anxious, not depressed. PHYSICAL EXAMINATION GENERAL: She is little bit toxic and is now little bit upset and concerned about abdominal pain. VITAL SIGNS: She has 99.7 temp, 77 pulse, 16 respiratory rate, 120/81 blood pressure, 97% sat on room air. HEENT: Head is atraumatic and normocephalic. Extraocular muscles are intact. Pupils are reactive to light and accommodation. Throat is moist. NECK: Supple. HEART: Regular rate. Normal S1 and S2. LUNGS: Decreased breath sounds. Clear to auscultation. No wheezes, no rhonchi, no rales. ABDOMEN: Tender all over. No real guarding, but it is diffusely tender. No rebound. No CVA tenderness. EXTREMITIES: Have no edema. She has GCS of 15. NEUROLOGIC: Cranial nerves II through XII grossly intact. Alert and oriented x3. SKIN: Warm and dry. LABORATORY DATA: She had multiple tests. She has 132 sodium, potassium 5.1, BUN is 26, creatinine 0.9. GFR is 59. Blood sugar is down to 284, was as high as 475. Total bilirubin is 1.4. AST is 33, ALT is 23, alkaline phosphatase 121, lipase is 60. The white count which came in was 19.8, it bumped up to 22.5 with a hemoglobin of 10.5, hematocrit 32.1, platelets are 327,000. The urine showed 250 sugar. She got a CAT scan of the abdomen and pelvis, which showed oval shaped density mass in the right lower abdomen to the cecum without malignancy, also bilateral nonobstructing kidney stones. PLAN: She has a consult with surgery, endocrinology, GI, and infectious disease. She will be on IV antibiotics, IV fluids, her medications. She will be n.p.o. I discussed with surgery and infectious disease at length. We will watch her closely. She might need to have an exploratory surgery for this mass and should be on IV antibiotics for diverticulitis. Dipak Hemphill DO
[2017-06-06] MEDS: metroNIDAZOLE IV 500 mg/100 ml 500 MG/100 ML BAG IVPB SCH ×3 (05:48→21:18)
[2017-06-06] MEDS: Aztreonam 1 Gm in NS 100mL 100 ML IVPB SCH ×3 (05:48→21:18)
[2017-06-06 08:21] LABS: ALB/GLOB RATIO 1.1 (1.1-1.8); ALBUMIN 3.9 g/dL (3.0-4.8); ALT/SGPT 58 U/L (7-56); AST/SGOT 45 U/L (15-39); BLOOD UREA NITROGEN 26 mg/dL (7-21); CALCIUM 8.8 mg/dL (8.4-10.5); GFR AFRICAN-AMERICAN > 60; GFR NON-AFRICAN AMERICAN > 60
--- NOTE | 2017-06-06 08:32 | CP.PCM.PN ---
Subjective - Date & Time of Evaluation Date of Evaluation: 06/06/17 Time of Evaluation: 08:32 - Subjective Subjective: General Surgery Dr. Larios Pt S&E @bedside. Per nursing, pt altered & agitated overnight. Pt restrained and given IM Ativan per duane RAYA. Pt reports improved abd pain. denies F/C, N/ V. tolerating CLD. Objective - Vital Signs/Intake and Output Vital Signs (last 24 hours): Temp Pulse Resp BP Pulse Ox 97.7 F 54 L 20 118/48 L 94 L 06/06/17 08:15 06/06/17 08:15 06/06/17 08:15 06/06/17 08:15 06/06/17 08:15 Intake and Output: 06/06/17 06/06/17 06:59 18:59 Intake Total 0 0 Output Total 200 200 Balance -200 -200 - Medications Medications: Current Medications Hydralazine HCl (Apresoline) 10 mg PO QID PRN PRN Reason: Systolic Blood Pressure Last Admin: 06/04/17 21:54 Dose: 10 mg Metronidazole (Flagyl) 500 mg in 100 mls @ 100 mls/hr IVPB Q8 [facility] PRN Reason: Protocol Last Admin: 06/06/17 05:48 Dose: 100 mls/hr Sodium Chloride (Sodium Chloride 0.45%) 1,000 mls @ 40 mls/hr IV .Q24H [facility] Last Admin: 06/04/17 21:20 Dose: 40 mls/hr Aztreonam (Azactam 1 Gm) 100 mls @ 100 mls/hr IVPB Q8 [facility] PRN Reason: Protocol Stop: 06/11/17 06:46 Last Admin: 06/06/17 05:48 Dose: 100 mls/hr Insulin Detemir (Levemir) 20 unit SC HS [facility] Last Admin: 06/05/17 22:00 Dose: Not Given Insulin Detemir (Levemir) 12 unit SC DAILY [facility] Insulin Human Regular (Humulin R Low) 0 units SC ACHS [facility] PRN Reason: Protocol Last Admin: 06/05/17 22:00 Dose: Not Given Levetiracetam (Keppra) 250 mg PO BID [facility] Last Admin: 06/05/17 17:31 Dose: 250 mg Metoprolol Succinate (Toprol Xl) 25 mg PO DAILY [facility] Last Admin: 06/05/17 09:54 Dose: 25 mg Montelukast Sodium (Singulair) 10 mg PO HS [facility] Last Admin: 06/05/17 22:00 Dose: Not Given Morphine Sulfate (Morphine) 4 mg IVP Q4H PRN PRN Reason: moderate to severe pain Last Admin: 06/05/17 20:42 Dose: 4 mg Ondansetron HCl (Zofran Inj) 4 mg IVP Q4 PRN PRN Reason: Nausea/Vomiting Pantoprazole Sodium (Protonix Inj) 40 mg IVP DAILY [facility] Last Admin: 06/05/17 09:55 Dose: 40 mg Polyethylene Glycol (Miralax) 17 gm PO DAILY [facility] Last Admin: 06/05/17 09:54 Dose: Not Given - Labs Labs: 06/05/17 07:00 06/05/17 07:00 - Constitutional Appears: Non-toxic, No Acute Distress - Head Exam Head Exam: NORMAL INSPECTION - Eye Exam Eye Exam: Normal appearance - ENT Exam ENT Exam: Mucous Membranes Moist - Respiratory Exam Respiratory Exam: NORMAL BREATHING PATTERN. absent: Accessory Muscle Use, Respiratory Distress - Cardiovascular Exam Cardiovascular Exam: absent: Bradycardia, Tachycardia - GI/Abdominal Exam GI & Abdominal Exam: Guarding (voluntary), Soft, Tenderness (R lumbar/ periumbilical region TTP). absent: Distended, Rebound - Extremities Exam Extremities Exam: Normal Inspection - Neurological Exam Neurological Exam: Alert, Awake - Psychiatric Exam Psychiatric exam: Normal Affect, Normal Mood - Skin Skin Exam: Dry, Intact, Warm Assessment and Plan - Assessment and Plan (Free Text) Assessment: 87 y/o F presents w/ abd pain, ileocecal mass. - f/u GI rec for colonoscopy - will schedule OR for - cont medical management - when patient is stable, transfer to TCU to monitor prior to surgery Pt discussed w/ Dr. Ric Ortiz DO PGY2
[2017-06-06] MEDS: Insulin Reg-LOW-Coverage SC SCH ×4 (08:56→21:47)
[2017-06-06 08:59] LABS: HEMOGLOBIN 10.2 gm/dL (12.0-16.0); MEAN CORPUSCULAR HEMOGLOBIN 27.6 pg (25.0-35.0); MEAN CORPUSCULAR HGB CONC 32.9 g/dl (31.0-37.0); MEAN PLATELET VOLUME 10.3 fl (7.0-11.0); RBC 3.69 10^6/uL (3.5-6.1); RED CELL DISTRIBUTION WIDTH 14.2 % (11.5-14.5); WHITE BLOOD COUNT 16.5 10^3/ul (4.5-11.0)
--- NOTE | 2017-06-06 10:13 | CP.PCM.CON ---
History of Present Illness - History of Present Illness History of Present Illness: shortly pt is 87 year old female with multiple medical problems, including: COPD, HTN, DM, seizure disorder, history of nephrolithiasis, S/P laparoscopic cholecystectomy, S/P cataract surgery, was admitted for evaluation of abdominal pain, was found to have cecal mass or phlegmon. Psychiatric consultation was called for evaluation of AMS, combativeness, pt has h/o Dementia. pt was seen and examined, discussed with RNs, record reviewed, family meeting with son Dylon Hernandez (at the bedside, pt gave permission to speak to him). Pt was found to be alert, pleasant, cooperative, socially appropriate, pt knows that she is in the hospital and circumstances of her admission here. Pt said that she had an abdominal pain and she asked her granddaughter to bring her to the hospital. Pt said at present moment her pain is "Much better". pt said that she lived in [place], provided her home address (which was correct) , pt was able to recognize her son and his fiance. Pt said that she never been depressed, denied feeling depressed now, denied thoughts of harming self or others, pt denies feeling anxious, pt reported no v/a/t hallucinations, pt does not present to be psychotic (but as per RN, pt was confused, was agitated, tried to climb off the bed, pt needed to have waste posy last night). pt said that she has a home health aid daily "she comes at 9am and leaves at 12 ". Pt said that her son and daughter helping her with finances. Pt does not have h/o being lost in the community. pt was educated about the plan from the medical/surgical/GI teams and cecal mass , pt verbalized understanding. collaterals was obtained from the pt's son, Dominic reported that pt was dx with dementia and it is getting progressively worse, pt has forgetfulness, pt at times does not remember where she put her money, stuff. Pt is able to function/ live independently but family is helping her to manage her finances. Pt's son said pt at the moment of the interview is at her baseline (mentally). pt's son was educated about need to have a family meeting and discuss advance directive or discuss POA. son was receptive and appreciative. past psych h/o: none, [facility] previous record reviewed, pt never been evaluated by psychiatrist. MSE: pt was alert, oriented in self, place, but not date, pt was pleasant and cooperative, good eye contact, speech was normal rate, tone, quality and quantity, mood "I am doing better, pain is not that bad", affect was reactive, mood congruent, thought process goal directed, thought content: pt denied v/a/t hallucinations, denied paranoid ideation, pt does not appear to be psychotic, I/ J are fair, impulses are unpredictable, but better controlled now (pt had episode of confusion, restlessness, agitation last night). Impression: delirium due to [facility] (cecal mass /?phlegmon), leukocytosis dementia (early stage) multiple medical issues (see above). Plan: seroquel 12.5mg hs prn for possible agitation PRN geodone 10mg q12hr (for severe agitation) meeting with pt's son appreciated discussed possible POA, advance directives GI/surgical teams f/u will f/u tomorrow thank you very much for letting me participate in care of your pt Past Patient History - Infectious Disease Hx of Infectious Diseases: None - Tetanus Immunizations Tetanus Immunization: Unknown - Past Social History Smoking Status: Former Smoker - CARDIAC Hx Cardiac Disorders: Yes Hx Hypertension: Yes - PULMONARY Hx Chronic Obstructive Pulmonary Disease (COPD): Yes - NEUROLOGICAL Hx Neurological Disorder: Yes Hx Seizures: Yes - HEENT Hx Cataracts: Yes (bilateral sx) - RENAL Hx Chronic Kidney Disease: Yes Hx Kidney Stones: Yes - ENDOCRINE/METABOLIC Hx Endocrine Disorders: Yes Hx Diabetes Mellitus Type 2: Yes - HEMATOLOGICAL/ONCOLOGICAL Hx Blood Disorders: Yes Hx Anemia: Yes - INTEGUMENTARY Hx Dermatological Problems: No - MUSCULOSKELETAL/RHEUMATOLOGICAL Hx Musculoskeletal Disorders: Yes Hx Arthritis: Yes Hx Falls: Yes - GASTROINTESTINAL Hx Gastrointestinal Disorders: Yes Hx Gastroesophageal Reflux: Yes - GENITOURINARY/GYNECOLOGICAL Hx Genitourinary Disorders: No - PSYCHIATRIC Hx Psychophysiologic Disorder: Yes Hx Depression: Yes Hx Emotional Abuse: No Hx Physical Abuse: No - SURGICAL HISTORY Hx Cholecystectomy: Yes - ANESTHESIA Hx Anesthesia: Yes Hx Anesthesia Reactions: Yes Hx Malignant Hyperthermia: No Meds Allergies/Adverse Reactions: Allergies Allergy/AdvReac Type Severity Reaction Status Date / Time Penicillins Allergy RASH Verified 06/04/17 14:42 Sulfa (Sulfonamide Allergy RASH Verified 06/04/17 14:42 Antibiotics) - Medications Medications: Current Medications Hydralazine HCl (Apresoline) 10 mg PO QID PRN PRN Reason: Systolic Blood Pressure Last Admin: 06/04/17 21:54 Dose: 10 mg Metronidazole (Flagyl) 500 mg in 100 mls @ 100 mls/hr IVPB Q8 [facility] PRN Reason: Protocol Last Admin: 06/06/17 05:48 Dose: 100 mls/hr Sodium Chloride (Sodium Chloride 0.45%) 1,000 mls @ 40 mls/hr IV .Q24H [facility] Last Admin: 06/04/17 21:20 Dose: 40 mls/hr Aztreonam (Azactam 1 Gm) 100 mls @ 100 mls/hr IVPB Q8 [facility] PRN Reason: Protocol Stop: 06/11/17 06:46 Last Admin: 06/06/17 05:48 Dose: 100 mls/hr Insulin Detemir (Levemir) 12 unit SC DAILY [facility] Insulin Detemir (Levemir) 14 unit SC HS [facility] Insulin Human Regular (Humulin R Low) 0 units SC ACHS [facility] PRN Reason: Protocol Last Admin: 06/06/17 08:56 Dose: Not Given Levetiracetam (Keppra) 250 mg PO BID [facility] Last Admin: 06/05/17 17:31 Dose: 250 mg Metoprolol Succinate (Toprol Xl) 25 mg PO DAILY [facility] Last Admin: 06/05/17 09:54 Dose: 25 mg Montelukast Sodium (Singulair) 10 mg PO [facility] Last Admin: 06/05/17 22:00 Dose: Not Given Morphine Sulfate (Morphine) 4 mg IVP Q4H PRN PRN Reason: moderate to severe pain Last Admin: 06/05/17 20:42 Dose: 4 mg Ondansetron HCl (Zofran Inj) 4 mg IVP Q4 PRN PRN Reason: Nausea/Vomiting Pantoprazole Sodium (Protonix Inj) 40 mg IVP DAILY [facility] Last Admin: 06/05/17 09:55 Dose: 40 mg Polyethylene Glycol (Miralax) 17 gm PO DAILY [facility] Last Admin: 06/05/17 09:54 Dose: Not Given Quetiapine Fumarate (Seroquel) 12.5 mg PO HS PRN; Protocol PRN Reason: AMS, agitation/psychosis Results - Vital Signs Recent Vital Signs: Last Vital Signs Temp 97.7 F 06/06/17 08:15 Pulse 54 L 06/06/17 08:15 Resp 20 06/06/17 08:15 BP 118/48 L 06/06/17 08:15 Pulse Ox 94 L 06/06/17 08:15 - Labs Result Diagrams: 06/06/17 08:50 06/06/17 07:00 Labs: Laboratory Results - last 24 hr 06/05/17 06/05/17 06/05/17 11:09 16:27 21:09 WBC RBC Hgb Hct MCV MCH MCHC RDW Plt Count MPV Sodium Potassium Chloride Carbon Dioxide Anion Gap BUN Creatinine Est GFR ( Amer) Est GFR (Non-Af Amer) POC Glucose (mg/dL) 301 H 295 H 230 H Random Glucose Calcium Total Bilirubin AST ALT Alkaline Phosphatase Total Protein Albumin Globulin Albumin/Globulin Ratio TSH 3rd Generation 06/06/17 06/06/17 06/06/17 07:00 07:00 07:14 WBC RBC Hgb Hct MCV MCH MCHC RDW Plt Count MPV Sodium 134 Potassium 5.0 Chloride 105 Carbon Dioxide 19 L Anion Gap 15 BUN 26 H Creatinine 0.8 Est GFR ( Amer) > 60 Est GFR (Non-Af Amer) > 60 POC Glucose (mg/dL) 201 H Random Glucose 87 Calcium 8.8 Total Bilirubin 0.6 AST 45 H ALT 58 H Alkaline Phosphatase 337 H Total Protein 7.2 Albumin 3.9 Globulin 3.4 Albumin/Globulin Ratio 1.1 TSH 3rd Generation 0.37 L 06/06/17 08:50 WBC 16.5 H D RBC 3.69 Hgb 10.2 L Hct 31.0 L MCV 84.0 MCH 27.6 MCHC 32.9 RDW 14.2 Plt Count 332 MPV 10.3 Sodium Potassium Chloride Carbon Dioxide Anion Gap BUN Creatinine Est GFR ( Amer) Est GFR (Non-Af Amer) POC Glucose (mg/dL) Random Glucose Calcium Total Bilirubin AST ALT Alkaline Phosphatase Total Protein Albumin Globulin Albumin/Globulin Ratio TSH 3rd Generation
[2017-06-06] MEDS: Insulin Detemir 100 units/ml Vial (Levemir) SC SCH (11:04)
[2017-06-06] MEDS: POLYETHYLENE GLYCOL 3350 17 GM/Dose PACKET PO SCH (11:05)
[2017-06-06] MEDS: Metoprolol Succinate 25 mg XL Tab PO SCH (11:06)
[2017-06-06] MEDS: Morphine 4 mg/ml ISec IVP PRN ×2 (12:09→21:37)
--- NOTE | 2017-06-06 16:02 | CP.PCM.PN ---
Subjective - Date & Time of Evaluation Date of Evaluation: 06/06/17 Time of Evaluation: 11:40 - Subjective Subjective: Comfortable in bed, not in distress, no fevers, still some abdominal pain in the lower portions. Objective - Vital Signs/Intake and Output Vital Signs (last 24 hours): Temp Pulse Resp BP Pulse Ox 97.7 F 54 L 20 118/48 L 94 L 06/06/17 07:57 06/06/17 07:57 06/06/17 07:57 06/06/17 07:57 06/06/17 07:57 Intake and Output: 06/06/17 06/06/17 06:59 18:59 Intake Total 0 0 Output Total 200 200 Balance -200 -200 - Medications Medications: Current Medications Hydralazine HCl (Apresoline) 10 mg PO QID PRN PRN Reason: Systolic Blood Pressure Last Admin: 06/04/17 21:54 Dose: 10 mg Metronidazole (Flagyl) 500 mg in 100 mls @ 100 mls/hr IVPB Q8 [facility] PRN Reason: Protocol Last Admin: 06/06/17 05:48 Dose: 100 mls/hr Sodium Chloride (Sodium Chloride 0.45%) 1,000 mls @ 40 mls/hr IV .Q24H [facility] Last Admin: 06/04/17 21:20 Dose: 40 mls/hr Aztreonam (Azactam 1 Gm) 100 mls @ 100 mls/hr IVPB Q8 [facility] PRN Reason: Protocol Stop: 06/11/17 06:46 Last Admin: 06/06/17 05:48 Dose: 100 mls/hr Insulin Detemir (Levemir) 20 unit SC [facility] Last Admin: 06/05/17 22:00 Dose: Not Given Insulin Detemir (Levemir) 12 unit SC DAILY [facility] Insulin Human Regular (Humulin R Low) 0 units SC ACHS [facility] PRN Reason: Protocol Last Admin: 06/05/17 22:00 Dose: Not Given Levetiracetam (Keppra) 250 mg PO BID [facility] Last Admin: 06/05/17 17:31 Dose: 250 mg Metoprolol Succinate (Toprol Xl) 25 mg PO DAILY [facility] Last Admin: 06/05/17 09:54 Dose: 25 mg Montelukast Sodium (Singulair) 10 mg PO [facility] Last Admin: 06/05/17 22:00 Dose: Not Given Morphine Sulfate (Morphine) 4 mg IVP Q4H PRN PRN Reason: moderate to severe pain Last Admin: 06/05/17 20:42 Dose: 4 mg Ondansetron HCl (Zofran Inj) 4 mg IVP Q4 PRN PRN Reason: Nausea/Vomiting Pantoprazole Sodium (Protonix Inj) 40 mg IVP DAILY [facility] Last Admin: 06/05/17 09:55 Dose: 40 mg Polyethylene Glycol (Miralax) 17 gm PO DAILY [facility] Last Admin: 06/05/17 09:54 Dose: Not Given - Labs Labs: 06/05/17 07:00 06/05/17 07:00 - Constitutional Appears: Non-toxic, No Acute Distress - Head Exam Head Exam: NORMAL INSPECTION - ENT Exam ENT Exam: Mucous Membranes Moist - Neck Exam Neck Exam: absent: Meningismus - Respiratory Exam Respiratory Exam: Decreased Breath Sounds - Cardiovascular Exam Cardiovascular Exam: +S1, +S2 - GI/Abdominal Exam GI & Abdominal Exam: Soft. absent: Tenderness Assessment and Plan - Assessment and Plan (Free Text) Plan: Assessment Systemic Inflammatory Response Syndrome, R/O sepsis from right lower quadrant phelgmon from possible cecal mass Diphtheroids in blood cx - R/O contamination COPD HTN DM seizure disorder history of nephrolithiasis S/P laparoscopic cholecystectomy S/P cataract surgery obesity with BMI 32 Plan continue Azactam and flagyl and Vancomycin day 2 - follow up plan of Surgery and GI will repeat blood cx will continue to monitor clinically
[2017-06-06] MEDS: Vancomycin 1gm in NS 250ml 1 GM/250 ML BAG IVPB SCH (17:18)
[2017-06-06] MEDS: Sodium Chloride 0.45% 1,000 ML IV SCH (21:20)
[2017-06-06] MEDS ORDERED: Insulin Detemir 100 units/ml Vial (Levemir) SC SCH ×2 (22:00)
--- NOTE | 2017-06-06 22:06 | CON ---
ENDOCRINOLOGY CONSULT ROOM: 372 HISTORY OF PRESENT ILLNESS: This is an 87-year-old female with known history of type 2 insulin requiring diabetes and hypertension, presenting here with right flank pain radiating to the periumbilical area with progressive intensity and duration and has now been admitted for further workup and management. She has also been referred for diabetic evaluation because of marked hyperglycemic exacerbation as noted thereof. PAST MEDICAL HISTORY: History of type 2 insulin requiring diabetes, currently on a premixed insulin regimen with Humulin 70/30 given as 10 units subcu t.i.d. before meals as ordered; history of hypertension and dyslipidemia; history of seizure disorder, currently on Keppra, taken as 250 mg b.i.d., history of chronic obstructive lung disease, on nebulizer and bronchodilator therapy; history of nephrolithiasis in the past; also history of cholelithiasis and underwent a recent laparoscopic cholecystectomy in 2014; history of cataract surgeries to both eyes as noted, and also history of chronic gastritis and GERD. ALLERGIES: PENICILLIN AND SULFA WITH CUTANEOUS RASHES. SOCIAL HISTORY: The patient has supportive family. No known substance use. FAMILY HISTORY: Positive for hypertension and diabetes. REVIEW OF SYSTEMS: As mentioned above. This is actually taken from the chart as the patient is unable to give details of the history and also because of the language barrier as she is only [place]-speaking as noted. As per the family, she has been having episodic bouts of dizziness and lightheadedness with bifrontal headaches and suboptimal energy level with easy fatigability and tiredness. No chest pain or palpitations, but admits to occasional bouts of shortness of breath, especially on exertion. Her oral intake is variable with nausea, dyspepsia, and episodic bouts of vomiting and supervening severe right flank pain and also lumbosacral pain with radiations to the periumbilical area in the anterior aspect of the abdomen. No recent alterations with bowel or urinary patterns. PHYSICAL EXAMINATION GENERAL: This is an average built female in moderate abdominal distress. VITAL SIGNS: Blood pressure of 160/100, pulse of 100 beats per minute; regular, temperature 99.0, and respirations 20. Height is 5 feet, weight is 165 pounds. HEENT: Head: Normocephalic. Eyes: Anicteric with pink conjunctivae. Funduscopy not possible at this time. Ears, nose and throat: Otherwise normal. NECK: Supple. Thyroid gland is normal sized. No carotid bruits or cervical adenopathy. CARDIOPULMONARY: Adynamic precordium. S1 and S2 is rapid and regular. LUNGS: Clear to auscultation. ABDOMEN: Flat, soft with positive bowel sounds. EXTREMITIES: No pretibial edema. Pulses are +2 bilaterally. LABORATORY DATA: The chemistry showed the BUN of 26, sodium 132, potassium 5.1, chloride 97, CO2 of 26, glucose 327, and creatinine 0.9. Her glucose levels have ranged from 284 to 301 and 330 mg/dL. ASSESSMENT: This is an 87-year-old female with uncontrolled and decompensated type 2 insulin-requiring diabetes with marked hyperglycemic accelerations, most likely precipitated with the intercurrent physical stressors, which, as you know, with increased insulin resistance and further impaired glucose tolerance. She also has, on a CAT scan, finding of a colonic mass in the cecum area as noted and is undergoing gastrointestinal workup as noted. PLAN OF MANAGEMENT: As discussed with the nursing staff, we will start her on a basal insulin even if she is n.p.o., and we will give her Levemir at a dose of 20 units subcu at bedtime daily to start tonight. We will also add Levemir given as 12 units subcu at 10 a.m. in the morning, to start tomorrow morning as ordered. We will titrate incremental as indicated to optimize metabolic control. We would recommend dextrose infusion in her IV fluids as she is n.p.o. as noted. After oral intake is advanced after the completion of the GI workup, then we will start her back on her premixed insulin regimen as indicated. A hemoglobin A1c, thyroid studies, and lipid panel orders have been given. We will follow her and advise accordingly. Jessika Nogueira MD
--- NOTE | 2017-06-07 03:38 | PN ---
DATE: 06/06/2017 SUBJECTIVE: I saw Ms. Hernandez this morning. She is an 87-year-old female who was seen and evaluated yesterday for complaints of abdominal pain and abnormal CT scan. This consultation is being done on behalf of Dr. Armani Joyner who is currently on vacation. Note also that my initial consultation is still not the computer, consultation number is [id number] dictated yesterday morning. As indicated in my consultation yesterday, I suggest that based on clinical exam which was significant for tenderness in the area of the right lower quadrant extending to just below the area of the right subcostal margin and the right paraumbilical as well as evaluation of the CT images, this case is more suggestive of a diverticulitis-type phenomenon rather than just a mass in the cecum. There is significant stranding in the area of the ascending colon on the CT images. One would not really expect that, plus the degree of fullness noted, if it was just a cecal mass. Also if there is some degree of bowel obstruction due to a large cecal lesion, I would have expected dilatation of the small bowel loops especially in the distal ileum. This is not found. On evaluation this morning, the patient is still experiencing some abdominal pain especially in the deep right lower quadrant. The abdomen is still moderately distended. I reviewed this case with the nurses on the floor this morning. PHYSICAL EXAMINATION VITAL SIGNS: I have reviewed this patient's vital signs. HEENT: Exam is significant for dry mouth. LUNGS: Decreased breath sounds basilar. HEART: Irregular rhythm. ABDOMEN: Still protuberant. There is no tenderness within the left upper quadrant and left lower quadrant. There is some radiation of pain through right lower quadrant on palpation of the periumbilical area. Evaluation of the right lower quadrant is still significant for fullness and still exhibits moderate amount of pain on deep palpation. There is still a fullness noted in the area of the right paraumbilical and this appears to be unchanged "relative to yesterday." LABORATORY DATA: Review of laboratory data indicates white count that increased yesterday. Initially, it was 20,000 that increased to 22,000 with an H and H of 10.4/32. Laboratory data is pending this morning. I reviewed this patient's chemistry. Urine culture negative. Blood cultures still pending. ASSESSMENT AND PLAN: The patient is admitted with complaints of severe right lower quadrant pain, presented with abnormal CT scan. After review of this case with the staff yesterday, the patient attempted a CT with some degree of oral contrast to clarify the region on the right side. Review of the report by Radiology includes possibly infectious process, possibly due to acute right diverticulitis or ruptured appendix or possibly a colonic carcinoma with surrounding inflammation. I think all these are quite likely; however, I think given the extent of the inflammation found on recent clinical exam, I think diverticulitis is most likely the possibility. The patient is still currently on antibiotic therapy which includes metronidazole and aztreonam. This consultation was dictated yesterday. As of this point in time, we suggest continuing on the current therapeutic regimen if the scenario is due to diverticulitis, combination of his active Flagyl and vancomycin would reproduce a resolution over the next couple of days. The patient will be followed up by in our office as well as Infectious Disease and the patient's primary care doctor. Sai Dawson DO, PhD [facility]
--- NOTE | 2017-06-07 03:45 | PN ---
I saw her this morning resting in bed. She is alert and talking. She is also posied. She is very confused and little bit combative yesterday in the house. So the doctor put her on a sil. She is a little bit better today, but the nurse feels she is still in the sil and she is kind of out of it. MEDICATIONS: She is currently on IV fluids, Apresoline. She had Ativan one time, aztreonam, IV antibiotics, Flagyl, IV antibiotics, insulin coverage, Keppra, Levemir, insulin, MiraLax, morphine p.r.n. for pain, Protonix, Singulair, IV fluids, Toprol, and Zofran. PHYSICAL EXAMINATION: VITAL SIGNS: She has a temp of 97.7, pulse 54, blood pressure 118/48, respiratory rate 20, 94% sat on room air. HEENT: Head is atraumatic, normocephalic. Throat is moist. GENERAL: She is alert, talking at me. NECK: Supple. HEART: Regular rate. LUNGS: Clear to auscultation. ABDOMEN: Soft, positive bowel sounds. EXTREMITIES: No edema. LABORATORY DATA: She has a white count down to 16.5 on antibiotic, which is good, hemoglobin 10.2, hematocrit 31, platelets of 332. Has 134 sodium, potassium is 5, BUN 26, creatinine 0.8, GFR is in the 60s, sugar is 87, calcium is 8.8, total bilirubin is 0.6, AST is 45, ALT is 58, alkaline phosphatase 337, total protein 7.2, albumin of 3.9, TSH is 0.37. Urine is few. She is being seen by Surgery and Infectious Disease. She has a few issues going on. She has systemic inflammatory response syndrome, possible sepsis with elevated white count, left lower quadrant phlegmon versus cecal mass, COPD, hypertension and she has now change in mentation a little bit. We will check her labs tomorrow. Check her ammonia level, monitor closely, hopefully get her to TCU to continue the treatment care. Dipak Hemphill DO [facility] # [id number]
[2017-06-07] MEDS: Aztreonam 1 Gm in NS 100mL 100 ML IVPB SCH ×3 (05:25→22:58)
[2017-06-07] MEDS: Vancomycin 1gm in NS 250ml 1 GM/250 ML BAG IVPB SCH ×2 (05:26→18:16)
[2017-06-07] MEDS: metroNIDAZOLE IV 500 mg/100 ml 500 MG/100 ML BAG IVPB SCH ×3 (05:26→21:29)
[2017-06-07 07:11] LABS: ALB/GLOB RATIO 0.7 (1.1-1.8); ALBUMIN 2.7 g/dL (3.0-4.8); ALT/SGPT 26 U/L (7-56); AST/SGOT 26 U/L (15-39); BLOOD UREA NITROGEN 19 mg/dL (7-21); CALCIUM 9.3 mg/dL (8.4-10.5); GFR AFRICAN-AMERICAN > 60; GFR NON-AFRICAN AMERICAN > 60
[2017-06-07 07:32] LABS: HEMOGLOBIN 9.2 gm/dL (12.0-16.0); MEAN CORPUSCULAR HGB CONC 31.7 g/dl (31.0-37.0); MEAN PLATELET VOLUME 10.6 fl (7.0-11.0); RBC 3.41 10^6/uL (3.5-6.1); RED CELL DISTRIBUTION WIDTH 14.6 % (11.5-14.5); WHITE BLOOD COUNT 10.9 10^3/ul (4.5-11.0)
--- NOTE | 2017-06-07 08:15 | CON ---
HISTORY OF PRESENT ILLNESS: I saw the patient this morning. She is an 87-year-old female with past medical history of hypertension, COPD, diabetes, arthritis, and there was complaint of new onset abdominal pain more right sided than anywhere else. The patient denies hematemesis or rectal bleeding. According to the notes, the patient had radiation of back pain as well with some degree of abdominal distention and decreased appetite. ALLERGIES: THE PATIENT CLAIMS AN ALLERGY TO PENICILLIN AND SULFA DRUGS. Note that she had a laparoscopic cholecystectomy in 2014. Apparently, the patient feels that the abdomen is moderately distended. She indicates pain with some movement. The patient is overall rather a poor historian. Most of the information noted above was obtained from the hospital notes. I reviewed this case with the nurse on the floor. PHYSICAL EXAMINATION: VITAL SIGNS: I reviewed this patient's vital signs. HEENT: Noncontributory. LUNGS: Decreased breath sounds in bases bilaterally. HEART: Irregular rhythm. ABDOMEN: Mildly distended. No tenderness elicited in the left upper and left lower quadrants. There is a mild degree of discomfort elicited in the epigastric area. Per patient, it is in her paraumbilical area with some degree of discomfort in the right lower quadrant. Note that there is a fullness noted in the area of the right paraumbilical extending to the area of the deep right lower quadrant. The pain was rated by the patient on evaluation of this area as moderately severe. LABORATORY DATA: Review of laboratory data indicated white count of 19.8, H and H of 11.5 and 34.8, platelets 376,000. Chemistry is reviewed indicating sodium of 131. She has an elevated glucose on admission of 454 which subsequently came down last night. Urinalysis also indicated spillage of protein and glucose. Evaluation of the report of the abdomen and pelvis CT without contrast indicates the patient is status post cholecystectomy as indicated above. There is no calculi bilaterally. Evaluation of the indicates "mass-like opacity" adjacent to the cecum with fat stranding with no evidence of bowel obstruction. I reviewed the CT images myself. There is stranding noted in the area of the cecum plus the proximal area of the ascending colon. Overall, the appearance of the images indicate a rather poor study. Clarification of the area is suggested possibly by a contrast study at the discretion of the surgical followup. OVERALL ASSESSMENT: This is an 87-year-old female which admitted with complaints of abdominal pain, more right sided. The elevation of white count in the absence of distal small bowel obstruction suggests that a large cecal mass is less likely. Note that the palpation of the ascending colon in the area of the right paraumbilical in this current setting suggests more of a diverticulitis type of scenario, especially now in view of the elevated white count, rather than a cecal mass. Note that evaluation of the previous CT's especially the CT in 2014 did not indicate any abnormalities, especially any cecal lesions or any pathology in the right colon. Review of endoscopy data was negative for recent colonoscopy. At the current time point, we favor a diverticulitis etiology for this particular scenario rather than a large cecal mass. The patient is currently on antibiotic therapies including ceftriaxone and metronidazole for the latter. If the scenario was diverticulitis with current antibiotic therapy it should reduce any resolution of pain in a relatively short order. Note better clarification of anatomy in this particular case would be in the patient's best interest. Sai Dawson DO, PhD JULISSAD
--- NOTE | 2017-06-07 08:48 | CP.PCM.PN ---
Subjective - Date & Time of Evaluation Date of Evaluation: 06/07/17 Time of Evaluation: 08:44 - Subjective Subjective: PT S&E at bedside. patient admits to one episode of vomiting, one small bowel movement. Patient admits to feeling a lot of gas. Patient denies F/C. Patient admits to abdominal pain along most of abdomen. Objective - Vital Signs/Intake and Output Vital Signs (last 24 hours): Temp Pulse Resp BP Pulse Ox 97.2 F L 60 18 120/54 L 96 06/06/17 16:34 06/06/17 16:34 06/06/17 16:34 06/06/17 16:34 06/06/17 16:34 Intake and Output: 06/07/17 06/07/17 06:59 18:59 Intake Total 360 Output Total 400 Balance -40 - Medications Medications: Current Medications Hydralazine HCl (Apresoline) 10 mg PO QID PRN PRN Reason: Systolic Blood Pressure Last Admin: 06/04/17 21:54 Dose: 10 mg Metronidazole (Flagyl) 500 mg in 100 mls @ 100 mls/hr IVPB Q8 [facility] PRN Reason: Protocol Last Admin: 06/07/17 05:26 Dose: 100 mls/hr Sodium Chloride (Sodium Chloride 0.45%) 1,000 mls @ 40 mls/hr IV .Q24H [facility] Last Admin: 06/06/17 21:20 Dose: 40 mls/hr Aztreonam (Azactam 1 Gm) 100 mls @ 100 mls/hr IVPB Q8 [facility] PRN Reason: Protocol Stop: 06/11/17 06:46 Last Admin: 06/07/17 05:25 Dose: 100 mls/hr Vancomycin HCl (Vancomycin 1gm) 1 gm in 250 mls @ 167 mls/hr IVPB Q12H [facility] PRN Reason: Protocol Last Admin: 06/07/17 05:26 Dose: 167 mls/hr Insulin Detemir (Levemir) 12 unit SC DAILY [facility] Last Admin: 06/06/17 11:04 Dose: 12 unit Insulin Detemir (Levemir) 10 unit SC HS [facility] Last Admin: 06/06/17 23:52 Dose: 10 unit Insulin Human Regular (Humulin R Low) 0 units SC ACHS [facility] PRN Reason: Protocol Last Admin: 06/06/17 21:47 Dose: Not Given Levetiracetam (Keppra) 250 mg PO BID [facility] Last Admin: 06/06/17 17:17 Dose: 250 mg Metoprolol Succinate (Toprol Xl) 25 mg PO DAILY [facility] Last Admin: 06/06/17 11:06 Dose: Not Given Montelukast Sodium (Singulair) 10 mg PO HS [facility] Last Admin: 06/06/17 21:20 Dose: 10 mg Morphine Sulfate (Morphine) 4 mg IVP Q4H PRN PRN Reason: moderate to severe pain Last Admin: 06/06/17 21:37 Dose: 4 mg Ondansetron HCl (Zofran Inj) 4 mg IVP Q4 PRN PRN Reason: Nausea/Vomiting Pantoprazole Sodium (Protonix Inj) 40 mg IVP DAILY [facility] Last Admin: 06/06/17 11:05 Dose: 40 mg Polyethylene Glycol (Miralax) 17 gm PO DAILY [facility] Last Admin: 06/06/17 11:05 Dose: 17 gm Quetiapine Fumarate (Seroquel) 12.5 mg PO HS PRN; Protocol PRN Reason: AMS, agitation/psychosis Last Admin: 06/06/17 21:21 Dose: 12.5 mg Ziprasidone (Geodon Inj) 10 mg IM Q12H PRN; Protocol PRN Reason: severe agitation/psychosis - Labs Labs: 06/07/17 06:00 06/07/17 06:00 - Constitutional Appears: Well, No Acute Distress - Head Exam Head Exam: NORMAL INSPECTION - Eye Exam Eye Exam: EOMI, Normal appearance - ENT Exam ENT Exam: Mucous Membranes Moist - Neck Exam Neck Exam: Full ROM, Normal Inspection - Respiratory Exam Respiratory Exam: NORMAL BREATHING PATTERN. absent: Accessory Muscle Use, Rhonchi, Wheezes, Respiratory Distress - GI/Abdominal Exam GI & Abdominal Exam: Soft, Tenderness, Hypoactive Bowel Sounds. absent: Rigid, Pulsatile Mass, Rebound - Neurological Exam Neurological Exam: Alert, Awake, Oriented x3 - Psychiatric Exam Psychiatric exam: Normal Affect, Normal Mood - Skin Skin Exam: Dry, Intact, Normal Color, Warm Assessment and Plan - Assessment and Plan (Free Text) Assessment: 87F with inflammatory mass Plan: c/w current abx c/w current medical management f/u GI recommendation for possible colonoscopy consider scheduling for OR,
[2017-06-07] MEDS: Insulin Reg-LOW-Coverage SC SCH ×4 (09:38→22:55)
[2017-06-07] MEDS: POLYETHYLENE GLYCOL 3350 17 GM/Dose PACKET PO SCH (09:38)
[2017-06-07] MEDS: Metoprolol Succinate 25 mg XL Tab PO SCH (09:38)
--- NOTE | 2017-06-07 09:45 | PN ---
ROOM: 372. This is an 87-year-old female with recent uncontrolled type-2 insulin requiring diabetes, now being followed closely for metabolic management. She presented here with marked hyperglycemic accelerations and is improving clinically and metabolically as noted today. Her latest glucose values have ranged from 201 to 230, and 299 mg/dL. Her latest chemistry showed a BUN of 26, sodium 134, potassium 5.0, chloride 105, CO2 of 19, glucose 87, and creatinine 0.8. Her TSH is 0.37 indicative of sick euthyroid syndrome. So at this time, we will continue the same basal and bolus insulin regimen to allow for dose equilibration and keep her on Levemir given as 12 units subq at 10 a.m. daily and Levemir given as 14 units subq at bedtime daily as ordered. We will titrate the as indicated to optimize metabolic control. She also has a very large cecal mass noted on CAT scan of the abdomen and is undergoing GI workup at this time. She is currently still on a liquid diet and so we will hold off dose titrations till her oral intake is advanced to solid food as noted. We will obtain serial chemistries and supplement accordingly needed. We will follow up. Jessika Nogueira MD
[2017-06-07] MEDS: Insulin Detemir 100 units/ml Vial (Levemir) SC SCH (09:48)
--- NOTE | 2017-06-07 11:47 | CP.PCM.PN ---
Subjective - Date & Time of Evaluation Date of Evaluation: 06/07/17 Time of Evaluation: 11:15 - Subjective Subjective: Patient is still having pain in the right lower quadrant area, although a little less. No fevers overnight, no diarrhea. Objective - Vital Signs/Intake and Output Vital Signs (last 24 hours): Temp Pulse Resp BP Pulse Ox 97.2 F L 60 18 120/54 L 96 06/06/17 16:34 06/06/17 16:34 06/06/17 16:34 06/06/17 16:34 06/06/17 16:34 Intake and Output: 06/07/17 06/07/17 06:59 18:59 Intake Total 360 Output Total 400 Balance -40 - Medications Medications: Current Medications Hydralazine HCl (Apresoline) 10 mg PO QID PRN PRN Reason: Systolic Blood Pressure Last Admin: 06/04/17 21:54 Dose: 10 mg Metronidazole (Flagyl) 500 mg in 100 mls @ 100 mls/hr IVPB Q8 [facility] PRN Reason: Protocol Last Admin: 06/07/17 05:26 Dose: 100 mls/hr Sodium Chloride (Sodium Chloride 0.45%) 1,000 mls @ 40 mls/hr IV .Q24H [facility] Last Admin: 06/06/17 21:20 Dose: 40 mls/hr Aztreonam (Azactam 1 Gm) 100 mls @ 100 mls/hr IVPB Q8 [facility] PRN Reason: Protocol Stop: 06/11/17 06:46 Last Admin: 06/07/17 05:25 Dose: 100 mls/hr Vancomycin HCl (Vancomycin 1gm) 1 gm in 250 mls @ 167 mls/hr IVPB Q12H [facility] PRN Reason: Protocol Last Admin: 06/07/17 05:26 Dose: 167 mls/hr Insulin Detemir (Levemir) 12 unit SC DAILY [facility] Last Admin: 06/06/17 11:04 Dose: 12 unit Insulin Detemir (Levemir) 10 unit SC HS [facility] Last Admin: 06/06/17 23:52 Dose: 10 unit Insulin Human Regular (Humulin R Low) 0 units SC ACHS [facility] PRN Reason: Protocol Last Admin: 06/06/17 21:47 Dose: Not Given Levetiracetam (Keppra) 250 mg PO BID [facility] Last Admin: 06/06/17 17:17 Dose: 250 mg Metoprolol Succinate (Toprol Xl) 25 mg PO DAILY [facility] Last Admin: 06/06/17 11:06 Dose: Not Given Montelukast Sodium (Singulair) 10 mg PO HS [facility] Last Admin: 06/06/17 21:20 Dose: 10 mg Morphine Sulfate (Morphine) 4 mg IVP Q4H PRN PRN Reason: moderate to severe pain Last Admin: 06/06/17 21:37 Dose: 4 mg Ondansetron HCl (Zofran Inj) 4 mg IVP Q4 PRN PRN Reason: Nausea/Vomiting Pantoprazole Sodium (Protonix Inj) 40 mg IVP DAILY [facility] Last Admin: 06/06/17 11:05 Dose: 40 mg Polyethylene Glycol (Miralax) 17 gm PO DAILY [facility] Last Admin: 06/06/17 11:05 Dose: 17 gm Quetiapine Fumarate (Seroquel) 12.5 mg PO HS PRN; Protocol PRN Reason: AMS, agitation/psychosis Last Admin: 06/06/17 21:21 Dose: 12.5 mg Ziprasidone (Geodon Inj) 10 mg IM Q12H PRN; Protocol PRN Reason: severe agitation/psychosis - Labs Labs: 06/07/17 06:00 06/07/17 06:00 - Constitutional Appears: Non-toxic, No Acute Distress - Head Exam Head Exam: NORMAL INSPECTION - ENT Exam ENT Exam: Mucous Membranes Moist - Neck Exam Neck Exam: absent: Meningismus - Respiratory Exam Respiratory Exam: Decreased Breath Sounds - Cardiovascular Exam Cardiovascular Exam: +S1, +S2 - GI/Abdominal Exam GI & Abdominal Exam: Guarding, Soft, Tenderness (right lower quadrant). absent : Distended, Rigid, Rebound Assessment and Plan - Assessment and Plan (Free Text) Plan: Assessment Systemic Inflammatory Response Syndrome, consider sepsis from right lower quadrant phelgmon from possible cecal mass, slowly improving Diphtheroids in blood cx - R/O contamination COPD HTN DM seizure disorder history of nephrolithiasis S/P laparoscopic cholecystectomy S/P cataract surgery obesity with BMI 32 Plan continue Azactam and flagyl and Vancomycin day 3 - follow up plan of Surgery and GI follow up repeat blood cx will continue to monitor clinically
--- NOTE | 2017-06-07 14:53 | CP.PCM.CON ---
History of Present Illness - History of Present Illness History of Present Illness: follow-up note: shortly pt is 87 year old female with multiple medical problems, including: COPD, HTN, DM, seizure disorder, history of nephrolithiasis, S/P laparoscopic cholecystectomy, S/P cataract surgery, was admitted for evaluation of abdominal pain, was found to have cecal mass or phlegmon. Psychiatric consultation was called for evaluation of AMS, combativeness, pt has h/o Dementia. patient was followed up today, patient presented to be alert, pleasant, corporative. Patient knows that she is in [facility] knows the circumstances of her admission to the medical side, patient has episodes of confusion, but overall presents much better. Patient presented with a very pleasant demeanor, was able to communicate minimal Fijian. patient reported that she is "confused and dizzy a little", pt said that her mood "Is okay", pt had reactive affect. MSE: pt was alert, oriented in self, place, but not date, pt was pleasant and cooperative, good eye contact, speech was normal rate, tone, quality and quantity, mood "I am confused and dizzy a little", affect was reactive, mood congruent, thought process goal directed, thought content: pt denied v/a/t hallucinations, denied paranoid ideation, pt does not appear to be psychotic, I/ J are fair, impulses are unpredictable, but better controlled now (pt had episode of confusion, restlessness, agitation two nights ago). 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 Plan: seroquel 12.5mg hs prn for possible agitation PRN geodone 10mg q12hr (for severe agitation) meeting with pt's son appreciated 06/06/17: discussed possible POA, advance directives GI/surgical teams f/u (OR possible ) will f/u tomorrow thank you very much for letting me participate in care of your pt Past Patient History - Infectious Disease Hx of Infectious Diseases: None - Tetanus Immunizations Tetanus Immunization: Unknown - Past Social History Smoking Status: Former Smoker - CARDIAC Hx Cardiac Disorders: Yes Hx Hypertension: Yes - PULMONARY Hx Chronic Obstructive Pulmonary Disease (COPD): Yes - NEUROLOGICAL Hx Neurological Disorder: Yes Hx Seizures: Yes - HEENT Hx Cataracts: Yes (bilateral sx) - RENAL Hx Chronic Kidney Disease: Yes Hx Kidney Stones: Yes - ENDOCRINE/METABOLIC Hx Diabetes Mellitus Type 2: Yes - HEMATOLOGICAL/ONCOLOGICAL Hx Blood Disorders: Yes Hx Anemia: Yes - INTEGUMENTARY Hx Dermatological Problems: No - MUSCULOSKELETAL/RHEUMATOLOGICAL Hx Arthritis: Yes - GASTROINTESTINAL Hx Gastrointestinal Disorders: Yes Hx Gastroesophageal Reflux: Yes - GENITOURINARY/GYNECOLOGICAL Hx Genitourinary Disorders: No - PSYCHIATRIC Hx Psychophysiologic Disorder: Yes Hx Depression: Yes Hx Emotional Abuse: No Hx Physical Abuse: No - SURGICAL HISTORY Hx Cholecystectomy: Yes - ANESTHESIA Hx Anesthesia: Yes Hx Anesthesia Reactions: Yes Hx Malignant Hyperthermia: No Meds Allergies/Adverse Reactions: Allergies Allergy/AdvReac Type Severity Reaction Status Date / Time Penicillins Allergy RASH Verified 06/04/17 14:42 Sulfa (Sulfonamide Allergy RASH Verified 06/04/17 14:42 Antibiotics) - Medications Medications: Current Medications Hydralazine HCl (Apresoline) 10 mg PO QID PRN PRN Reason: Systolic Blood Pressure Last Admin: 06/04/17 21:54 Dose: 10 mg Metronidazole (Flagyl) 500 mg in 100 mls @ 100 mls/hr IVPB Q8 [facility] PRN Reason: Protocol Last Admin: 06/07/17 05:26 Dose: 100 mls/hr Sodium Chloride (Sodium Chloride 0.45%) 1,000 mls @ 40 mls/hr IV .Q24H [facility] Last Admin: 06/06/17 21:20 Dose: 40 mls/hr Aztreonam (Azactam 1 Gm) 100 mls @ 100 mls/hr IVPB Q8 [facility] PRN Reason: Protocol Stop: 06/11/17 06:46 Last Admin: 06/07/17 05:25 Dose: 100 mls/hr Vancomycin HCl (Vancomycin 1gm) 1 gm in 250 mls @ 167 mls/hr IVPB Q12H [facility] PRN Reason: Protocol Last Admin: 06/07/17 05:26 Dose: 167 mls/hr Insulin Detemir (Levemir) 12 unit SC DAILY [facility] Last Admin: 06/07/17 09:48 Dose: 12 unit Insulin Detemir (Levemir) 10 unit SC HS [facility] Last Admin: 06/06/17 23:52 Dose: 10 unit Insulin Human Regular (Humulin R Low) 0 units SC ACHS [facility] PRN Reason: Protocol Last Admin: 06/07/17 13:06 Dose: Not Given Levetiracetam (Keppra) 250 mg PO BID [facility] Last Admin: 06/07/17 09:38 Dose: 250 mg Metoprolol Succinate (Toprol Xl) 25 mg PO DAILY [facility] Last Admin: 06/07/17 09:38 Dose: 25 mg Montelukast Sodium (Singulair) 10 mg PO HS [facility] Last Admin: 06/06/17 21:20 Dose: 10 mg Morphine Sulfate (Morphine) 4 mg IVP Q4H PRN PRN Reason: moderate to severe pain Last Admin: 06/06/17 21:37 Dose: 4 mg Ondansetron HCl (Zofran Inj) 4 mg IVP Q4 PRN PRN Reason: Nausea/Vomiting Pantoprazole Sodium (Protonix Inj) 40 mg IVP DAILY [facility] Last Admin: 06/07/17 09:38 Dose: 40 mg Polyethylene Glycol (Miralax) 17 gm PO DAILY [facility] Last Admin: 06/07/17 09:38 Dose: 17 gm Quetiapine Fumarate (Seroquel) 12.5 mg PO HS PRN; Protocol PRN Reason: AMS, agitation/psychosis Last Admin: 06/06/17 21:21 Dose: 12.5 mg Ziprasidone (Geodon Inj) 10 mg IM Q12H PRN; Protocol PRN Reason: severe agitation/psychosis Results - Vital Signs Recent Vital Signs: Last Vital Signs Temp 97.5 F L 06/07/17 11:07 Pulse 80 06/07/17 11:07 Resp 17 06/07/17 11:07 BP 128/45 L 06/07/17 11:07 Pulse Ox 96 06/07/17 11:07 - Labs Result Diagrams: 06/07/17 06:00 06/07/17 06:00 Labs: Laboratory Results - last 24 hr 06/06/17 06/06/17 06/06/17 07:00 16:14 21:15 WBC RBC Hgb Hct MCV MCH MCHC RDW Plt Count MPV Sodium Potassium Chloride Carbon Dioxide Anion Gap BUN Creatinine Est GFR ( Amer) Est GFR (Non-Af Amer) POC Glucose (mg/dL) 236 H 103 Random Glucose Hemoglobin A1c 5.8 Calcium Total Bilirubin AST ALT Alkaline Phosphatase Ammonia Total Protein Albumin Globulin Albumin/Globulin Ratio 06/07/17 06/07/17 06/07/17 06:00 06:00 07:28 WBC 10.9 D RBC 3.41 L Hgb 9.2 L Hct 29.0 L MCV 85.0 MCH 27.0 MCHC 31.7 RDW 14.6 H Plt Count 329 MPV 10.6 Sodium 138 Potassium 4.0 Chloride 104 Carbon Dioxide 25 Anion Gap 13 BUN 19 Creatinine 0.6 Est GFR ( Amer) > 60 Est GFR (Non-Af Amer) > 60 POC Glucose (mg/dL) 71 Random Glucose 75 Hemoglobin A1c Calcium 9.3 Total Bilirubin 0.5 AST 26 ALT 26 Alkaline Phosphatase 100 Ammonia Total Protein 6.6 Albumin 2.7 L Globulin 3.9 Albumin/Globulin Ratio 0.7 L 06/07/17 06/07/17 09:40 13:05 WBC RBC Hgb Hct MCV MCH MCHC RDW Plt Count MPV Sodium Potassium Chloride Carbon Dioxide Anion Gap BUN Creatinine Est GFR ( Amer) Est GFR (Non-Af Amer) POC Glucose (mg/dL) 112 H Random Glucose Hemoglobin A1c Calcium Total Bilirubin AST ALT Alkaline Phosphatase Ammonia < 9 L Total Protein Albumin Globulin Albumin/Globulin Ratio
--- NOTE | 2017-06-07 16:32 | PN ---
DATE: 06/07/2017 SUBJECTIVE: I saw Mrs. Hernandez this morning. She is an 87-year-old female admitted with complaints of severe right lower quadrant abdominal pain with an abnormal CT scan. The patient appears to making progress on her current therapeutic regimen, which includes antibiotic therapy and analgesics on a p.r.n. basis. Given the patient's improvement on clinical exam and recurrent antibiotics, which included Azactam, Flagyl and vancomycin, the patient was more suggestive of diverticulitis type picture rather than just a plain cecal mass. Note that the physical exam can elicit discomfort extending to the area of the right upper quadrant, therefore involving the area of the ascending colon. This morning, the patient indicates very small amount of pain on the right side relative to the day of admission. No hematemesis or rectal bleeding. PHYSICAL EXAMINATION: VITAL SIGNS: I reviewed this patient's vital signs. HEENT: Significant for dry mouth. CARDIOPULMONARY: Regular rhythm. LUNGS: Decreased breath sounds at bases. ABDOMEN: Protuberant. There is mild degree of tenderness on palpation of the paraumbilical area to the right lower quadrant.. Still with a fullness in the area of the right lower quadrant extending to the right paraumbilical. LABORATORY DATA: Few laboratory data indicate rather significant decrease in white count from 19.8 to 16.5. Chemistry indicates yesterday AST and ALT ratio of 45/58, alkaline phosphatase 337. ASSESSMENT: This is an 87-year-old female here with severe abdominal pain, right lower quadrant with an abnormal CT scan. Although, cecal lesion is possible, review of CT scan from 06/2015 was negative for any predisposing lesions. The patient had a clinical response to antibiotic therapy and IV fluids, therefore this would be unlikely if the scenario was just due to a cecal mass. Clinical response and laboratory data more suggestive of a diverticular type scenario. Suggest continue on current regimen. The patient will be followed up by surgery and primary care doctor as well as Infectious Disease. Sai Dawson DO, PhD CHARITY
[2017-06-07] MEDS: Morphine 4 mg/ml ISec IVP PRN (21:27)
[2017-06-08] MEDS: Insulin Detemir 100 units/ml Vial (Levemir) SC SCH ×3 (00:36→21:34)
--- NOTE | 2017-06-08 02:18 | PN ---
ENDO FOLLOWUP NOTE DATE: 06/07/2017 LOCATION: Room 372, [facility] SUBJECTIVE: This is an 87-year-old female with recent uncontrolled type 2 insulin requiring diabetes, now being followed closely for metabolic management. Her oral intake is quiet variable and suboptimal at this time with episodic bouts of low normal glycemic levels as noted. Her glucose levels today have ranged from 71-103 and 112 mg/dL. Her latest chemistries showed a BUN of 19, sodium 138, potassium 4.0, chloride 104, CO2 is 25, glucose 75, and creatinine 0.6. So at this time, we will modify her basal and bolus insulin regimen and lower the Levemir to 6 units subcu at bedtime daily to start tonight. We will also lower the Humalog to 4 units subcu t.i.d. before meals as ordered. We will titrate incremental as indicated to optimize metabolic control. We will obtain serial chemistries and supplement accordingly as needed. We will follow and advise accordingly. Jessika Nogueira MD
--- NOTE | 2017-06-08 04:27 | DS ---
HISTORY OF PRESENT ILLNESS: She is doing better and resting in bed today. She is on IV antibiotics. She is improving and I am hoping to get her to TCU for further IV antibiotics, physical therapy, and then possible if we need to bring her back for surgery. MEDICATIONS: She is currently on IV fluids, hydralazine, Azactam IV, Flagyl IV, insulin coverage, Keppra, Levemir, MiraLAX, morphine for pain, Protonix, Seroquel, Singulair, Toprol, vancomycin IV, and Zofran. PHYSICAL EXAMINATION: VITAL SIGNS: Temperature 97.2, pulse 60, blood pressure 120/54, respiratory rate 18, O2 sat 96% on room air. HEENT: Head is atraumatic and normocephalic. Throat is moist. NECK: Supple. HEART: Regular rate. LUNG: Decreased breath sounds, but clear. No wheezes, no rhonchi, and no rales. ABDOMEN: Soft. Positive bowel sounds. Nontender. No guarding. No rebound. No CVA tenderness. EXTREMITIES: No edema. LABORATORY DATA: Her white count is down from 22 down to 10.9 today, hemoglobin 9.2, hematocrit 29, platelets 329. She has a sodium of 138, potassium 4, BUN 19, creatinine 0.6, GFR is greater than 60, sugar is 75, calcium is 9.3, total bilirubin 0.5, AST is 26, ALT is 26, alkaline phosphatase 100, total protein 6.6. PLAN: She is being seen by Infectious Disease, Psychiatry, Surgery, GI, and Endocrinology. I am hoping I could transfer her to TCU today to continue with IV antibiotics and physical therapy and to make sure we do not need to do surgery on this 87-year-old female with a questionable abdominal mass versus diverticulitis. Hopefully, we could transfer her to TCU. Continue with treatment and physical therapy before she will go home. Dipak Hemphill DO
[2017-06-08] MEDS: Vancomycin 1gm in NS 250ml 1 GM/250 ML BAG IVPB SCH ×2 (05:12→16:00)
[2017-06-08] MEDS: metroNIDAZOLE IV 500 mg/100 ml 500 MG/100 ML BAG IVPB SCH ×3 (05:53→22:37)
[2017-06-08] MEDS: Aztreonam 1 Gm in NS 100mL 100 ML IVPB SCH ×3 (06:42→21:31)
[2017-06-08] MEDS: Insulin Reg-LOW-Coverage SC SCH ×4 (07:30→21:30)
--- NOTE | 2017-06-08 08:06 | CP.PCM.PN ---
Subjective - Date & Time of Evaluation Date of Evaluation: 06/08/17 Time of Evaluation: 07:00 - Subjective Subjective: General Surgery Dr. Larios Pt S&E @bedside. NAEO. admits to abd pain though improved since admission. denies F/C, N/V. tolerating CLD. Objective - Vital Signs/Intake and Output Vital Signs (last 24 hours): Temp Pulse Resp BP Pulse Ox 98.5 F 72 19 158/72 H 95 06/07/17 18:02 06/07/17 18:02 06/07/17 18:02 06/07/17 18:02 06/07/17 18:02 Intake and Output: 06/08/17 06/08/17 06:59 18:59 Intake Total 360 975 Balance 360 975 - Medications Medications: Current Medications Hydralazine HCl (Apresoline) 10 mg PO QID PRN PRN Reason: Systolic Blood Pressure Last Admin: 06/04/17 21:54 Dose: 10 mg Metronidazole (Flagyl) 500 mg in 100 mls @ 100 mls/hr IVPB Q8 [facility] PRN Reason: Protocol Last Admin: 06/08/17 05:53 Dose: 100 mls/hr Sodium Chloride (Sodium Chloride 0.45%) 1,000 mls @ 40 mls/hr IV .Q24H [facility] Last Admin: 06/06/17 21:20 Dose: 40 mls/hr Aztreonam (Azactam 1 Gm) 100 mls @ 100 mls/hr IVPB Q8 [facility] PRN Reason: Protocol Stop: 06/11/17 06:46 Last Admin: 06/08/17 06:42 Dose: 100 mls/hr Vancomycin HCl (Vancomycin 1gm) 1 gm in 250 mls @ 167 mls/hr IVPB Q12H [facility] PRN Reason: Protocol Last Admin: 06/08/17 05:12 Dose: 167 mls/hr Insulin Detemir (Levemir) 4 unit SC HS [facility] Last Admin: 06/08/17 00:36 Dose: 4 unit Insulin Detemir (Levemir) 6 unit SC DAILY [facility] Insulin Human Regular (Humulin R Low) 0 units SC ACHS [facility] PRN Reason: Protocol Last Admin: 06/07/17 22:55 Dose: Not Given Levetiracetam (Keppra) 250 mg PO BID [facility] Last Admin: 06/07/17 18:16 Dose: 250 mg Metoprolol Succinate (Toprol Xl) 25 mg PO DAILY [facility] Last Admin: 06/07/17 09:38 Dose: 25 mg Montelukast Sodium (Singulair) 10 mg PO HS [facility] Last Admin: 06/07/17 22:00 Dose: Not Given Morphine Sulfate (Morphine) 4 mg IVP Q4H PRN PRN Reason: moderate to severe pain Last Admin: 06/07/17 21:27 Dose: 4 mg Ondansetron HCl (Zofran Inj) 4 mg IVP Q4 PRN PRN Reason: Nausea/Vomiting Pantoprazole Sodium (Protonix Inj) 40 mg IVP DAILY [facility] Last Admin: 06/07/17 09:38 Dose: 40 mg Polyethylene Glycol (Miralax) 17 gm PO DAILY [facility] Last Admin: 06/07/17 09:38 Dose: 17 gm Quetiapine Fumarate (Seroquel) 12.5 mg PO HS PRN; Protocol PRN Reason: AMS, agitation/psychosis Last Admin: 06/06/17 21:21 Dose: 12.5 mg Ziprasidone (Geodon Inj) 10 mg IM Q12H PRN; Protocol PRN Reason: severe agitation/psychosis - Labs Labs: 06/07/17 06:00 06/07/17 06:00 - Constitutional Appears: Non-toxic, No Acute Distress - Head Exam Head Exam: NORMAL INSPECTION - Eye Exam Eye Exam: Normal appearance - ENT Exam ENT Exam: Mucous Membranes Moist - Respiratory Exam Respiratory Exam: NORMAL BREATHING PATTERN. absent: Accessory Muscle Use, Respiratory Distress - Cardiovascular Exam Cardiovascular Exam: absent: Bradycardia, Tachycardia - GI/Abdominal Exam GI & Abdominal Exam: Guarding (voluntary), Soft, Tenderness (TTP right abd/ periumbilical). absent: Distended, Rebound - Extremities Exam Extremities Exam: Normal Inspection - Neurological Exam Neurological Exam: Alert, Awake - Psychiatric Exam Psychiatric exam: Normal Affect, Normal Mood - Skin Skin Exam: Dry, Intact, Normal Color, Warm Assessment and Plan - Assessment and Plan (Free Text) Assessment: 87 y/o F w/ abd pain 2/2 ileocecal mass 2/2 ruptured appendicitis vs diverticulitis, vs perf cancer. - cont IV Abx per ID - repeat CT A/P Wednesday - scheduled for surgery - medical/cardiac clearance - cont CLD - f/u GI recs Pt discussed w/ Dr. Ric Ortiz DO PGY2
[2017-06-08] MEDS: Metoprolol Succinate 25 mg XL Tab PO SCH (11:10)
[2017-06-08] MEDS: POLYETHYLENE GLYCOL 3350 17 GM/Dose PACKET PO SCH (11:10)
--- NOTE | 2017-06-08 13:30 | PN ---
DATE: 06/08/2017 SUBJECTIVE: I saw the patient this morning. She is an 87-year-old female admitted with complaints of diffuse abdominal pain, more severe in the right lower quadrant. The patient had been on IV antibiotic therapy. She has had triple antibiotics for the past several days. She has made considerable progress. I have reviewed this case with Dr. Lucio as well as Dr. Larios yesterday. My opinion based on the current clinical scenario, although she may have a cecal mass, the immediate problem is most likely secondary to acute diverticulitis involving the cecum to the area of the distal ascending colon. At the bedside this morning, the patient appeared significantly improved. Abdomen is moderately decompressed and the pain is less as well. PHYSICAL EXAMINATION: VITAL SIGNS: I reviewed the patient's vital signs. HEENT: Significant for dry mouth. LUNGS: Decreased breath sounds at bases bilaterally. HEART: Irregular rhythm. ABDOMEN: Soft, mild tenderness in the epigastric area. Physical exam is intense in the right lower quadrant, plus fullness which has significantly decreased in the area of the right periumbilical to the right lower quadrant. LABORATORY DATA: Reviewed this patient's laboratory data which consists again of a decrease in white count to 10. Hemoglobin gradually decreasing, currently H and H of 9.2/29 without evidence of bleeding. Chemistry reviewed. ASSESSMENT: This is an 87-year-old female admitted with complaints of severe right lower quadrant pain, felt to have a "cecal mass" on CT scan. Note that this patient as indicated previously is behaving somewhat like a diverticulitis episode. Note the gradual decompression and patient's improvement over the past several days after triple antibiotic therapy. We will continue on same assuming that this scenario is secondary to diverticulitis and not due to a cecal mass causing bowel obstruction. Note that bowel obstruction is not seen on CT. Sai Dawson DO, PhD MTDDarien
--- NOTE | 2017-06-08 16:03 | CP.PCM.CON ---
History of Present Illness - History of Present Illness History of Present Illness: follow-up note: shortly pt is 87 year old female with multiple medical problems, including: COPD, HTN, DM, seizure disorder, history of nephrolithiasis, S/P laparoscopic cholecystectomy, S/P cataract surgery, was admitted for evaluation of abdominal pain, was found to have cecal mass or phlegmon. Psychiatric consultation was called for evaluation of AMS, combativeness, pt has h/o Dementia. patient was followed up today, patient presented to be alert, pleasant, corporative. Patient knows that she is in [facility], knows the circumstances of her admission to the medical side, patient has episodes of confusion, but overall presents much better. as per nursing report, patient is calm, corporative, no behavioral incidents. MSE: pt was alert, oriented in self, place, but not date, pt was pleasant and cooperative, good eye contact, speech was normal rate, tone, quality and quantity, mood " I am little better, i still have little pain in my stomach", affect was reactive, mood congruent, thought process goal directed, thought content: pt denied v/a/t hallucinations, denied paranoid ideation, pt does not appear to be psychotic, I/J are fair, impulses are unpredictable, but better controlled now (pt had episode of confusion, restlessness, agitation two nights ago). 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 Plan: seroquel 12.5mg hs prn for possible agitation, last dose was June 06 PRN geodone 10mg q12hr (for severe agitation), patient did not get any IM meeting with pt's son appreciated 06/06/17: discussed possible POA, advance directives GI/surgical teams f/u (OR possible ) will f/u tomorrow thank you very much for letting me participate in care of your pt Past Patient History - Infectious Disease Hx of Infectious Diseases: None - Tetanus Immunizations Tetanus Immunization: Unknown - Past Social History Smoking Status: Former Smoker - CARDIAC Hx Cardiac Disorders: Yes Hx Hypertension: Yes - PULMONARY Hx Chronic Obstructive Pulmonary Disease (COPD): Yes - NEUROLOGICAL Hx Neurological Disorder: Yes Hx Seizures: Yes - HEENT Hx Cataracts: Yes (bilateral sx) - RENAL Hx Chronic Kidney Disease: Yes Hx Kidney Stones: Yes - ENDOCRINE/METABOLIC Hx Diabetes Mellitus Type 2: Yes - HEMATOLOGICAL/ONCOLOGICAL Hx Blood Disorders: Yes Hx Anemia: Yes - INTEGUMENTARY Hx Dermatological Problems: No - MUSCULOSKELETAL/RHEUMATOLOGICAL Hx Arthritis: Yes - GASTROINTESTINAL Hx Gastrointestinal Disorders: Yes Hx Gastroesophageal Reflux: Yes - GENITOURINARY/GYNECOLOGICAL Hx Genitourinary Disorders: No - PSYCHIATRIC Hx Psychophysiologic Disorder: Yes Hx Depression: Yes Hx Emotional Abuse: No Hx Physical Abuse: No - SURGICAL HISTORY Hx Cholecystectomy: Yes - ANESTHESIA Hx Anesthesia: Yes Hx Anesthesia Reactions: Yes Hx Malignant Hyperthermia: No Meds Allergies/Adverse Reactions: Allergies Allergy/AdvReac Type Severity Reaction Status Date / Time Penicillins Allergy RASH Verified 06/04/17 14:42 Sulfa (Sulfonamide Allergy RASH Verified 06/04/17 14:42 Antibiotics) - Medications Medications: Current Medications Hydralazine HCl (Apresoline) 10 mg PO QID PRN PRN Reason: Systolic Blood Pressure Last Admin: 06/04/17 21:54 Dose: 10 mg Metronidazole (Flagyl) 500 mg in 100 mls @ 100 mls/hr IVPB Q8 [facility] PRN Reason: Protocol Last Admin: 06/08/17 05:53 Dose: 100 mls/hr Sodium Chloride (Sodium Chloride 0.45%) 1,000 mls @ 40 mls/hr IV .Q24H [facility] Last Admin: 06/06/17 21:20 Dose: 40 mls/hr Aztreonam (Azactam 1 Gm) 100 mls @ 100 mls/hr IVPB Q8 [facility] PRN Reason: Protocol Stop: 06/11/17 06:46 Last Admin: 06/08/17 06:42 Dose: 100 mls/hr Vancomycin HCl (Vancomycin 1gm) 1 gm in 250 mls @ 167 mls/hr IVPB Q12H [facility] PRN Reason: Protocol Last Admin: 06/08/17 05:12 Dose: 167 mls/hr Insulin Detemir (Levemir) 4 unit SC HS [facility] Last Admin: 06/08/17 00:36 Dose: 4 unit Insulin Detemir (Levemir) 6 unit SC DAILY [facility] Insulin Human Regular (Humulin R Low) 0 units SC ACHS [facility] PRN Reason: Protocol Last Admin: 06/07/17 22:55 Dose: Not Given Levetiracetam (Keppra) 250 mg PO BID [facility] Last Admin: 06/08/17 11:09 Dose: 250 mg Metoprolol Succinate (Toprol Xl) 25 mg PO DAILY [facility] Last Admin: 06/08/17 11:10 Dose: 25 mg Montelukast Sodium (Singulair) 10 mg PO HS [facility] Last Admin: 06/07/17 22:00 Dose: Not Given Morphine Sulfate (Morphine) 4 mg IVP Q4H PRN PRN Reason: moderate to severe pain Last Admin: 06/07/17 21:27 Dose: 4 mg Ondansetron HCl (Zofran Inj) 4 mg IVP Q4 PRN PRN Reason: Nausea/Vomiting Pantoprazole Sodium (Protonix Inj) 40 mg IVP DAILY [facility] Last Admin: 06/08/17 11:10 Dose: 40 mg Polyethylene Glycol (Miralax) 17 gm PO DAILY [facility] Last Admin: 06/08/17 11:10 Dose: 17 gm Quetiapine Fumarate (Seroquel) 12.5 mg PO HS PRN; Protocol PRN Reason: AMS, agitation/psychosis Last Admin: 06/06/17 21:21 Dose: 12.5 mg Ziprasidone (Geodon Inj) 10 mg IM Q12H PRN; Protocol PRN Reason: severe agitation/psychosis Results - Vital Signs Recent Vital Signs: Last Vital Signs Temp 97.9 F 06/08/17 08:38 Pulse 67 06/08/17 11:10 Resp 19 06/08/17 08:38 BP 136/65 06/08/17 11:10 Pulse Ox 95 06/08/17 08:38 - Labs Result Diagrams: 06/07/17 06:00 06/07/17 06:00 Labs: Laboratory Results - last 24 hr 06/07/17 06/07/17 06/08/17 16:37 22:01 07:27 POC Glucose (mg/dL) 209 H 123 H 109 06/08/17 06/08/17 11:22 15:52 POC Glucose (mg/dL) 202 H 240 H
--- NOTE | 2017-06-08 16:39 | PN ---
DATE: SUBJECTIVE: The patient seen earlier this morning in no acute distress, nontoxic in room-372, Bed-2. PHYSICAL EXAMINATION VITAL SIGNS: The patient's temperature is 97, blood pressure is 136/70, respiratory rate of 16. HEENT: Unremarkable. NECK: Supple. LUNGS: Decreased breath sounds. HEART: Normal S1 and S2. ABDOMEN: Soft, nontender. LABORATORY DATA: Reveals a white count of 10,000, hemoglobin of 9, platelets of 329. Chemistries are noted and urinalysis is noted and microbiology is reviewed. Blood cultures are negative. Initially, one blood culture is positive for corynebacterium and review of orders reveals the patient to be on aztreonam, Flagyl and vancomycin. ASSESSMENT AND PLAN: This is an 87-year-old female with systemic inflammatory response syndrome and her right lower quadrant phlegmon, possible fecal mass and corynebacterium bacteremia probable contamination of the patient with chronic obstructive pulmonary disease, hypertension, seizures, nephrolithiasis. Day #4 of vancomycin, aztreonam and Flagyl and possible surgery. Dr. Tisha Ortiz's progress note is reviewed and possible surgery on . Dr. Sai Dawson's note is reviewed. We will follow with you. Delonte Nair MD
--- NOTE | 2017-06-08 17:19 | PN ---
DATE: 06/08/2017 SUBJECTIVE: I am trying to get her to the TCU for further IV antibiotics and then if they need to, they could always bring her back for the surgery, which at this time she is improving clinically. She is comfortable in bed, no acute complaints. PHYSICAL EXAMINATION GENERAL: This morning, alert and aware. VITAL SIGNS: She has 97.9 temp, 67 pulse, 136/65 blood pressure, 19 respiratory rate, 95% sat on room air. HEENT: Head is atraumatic, normocephalic. Throat is moist. NECK: Supple. CARDIOPULMONARY: Heart, regular rate. LUNGS: Decreased breath sounds. Clear to auscultation. ABDOMEN: Soft. Positive bowel sounds. Nontender, no guarding, no rebound. EXTREMITIES: No edema. LABORATORY DATA: Her white count is down to 10.9, it was as high as 22, it is the best it has been, 9.2 hemoglobin, 29 hematocrit with 329 platelets. She had a 138 sodium, potassium is 4, BUN 19, creatinine 0.6, ,sugar last one is 109, calcium is 9.3, total bilirubin is 0.5, AST is 26, ALT is 26, alkaline phosphatase is 100, total protein 6.6, and ammonia is less than 9. Urine is trace, is being seen by Surgery, Endocrinology, Psychiatry, Infectious Disease. I was hoping to get her to TCU today, so we can give IV fluids in her, and if we need to, can always bring her back her for the surgery, get physical therapy. I called another TCU evaluation for her. MEDICATIONS: She is currently on Apresoline, Azactam, IV Flagyl, Geodon, insulin, Keppra, Levemir, MiraLax, morphine as needed, pantoprazole, Seroquel, Singulair, IV fluids, Toprol, vancomycin, Zofran. She is here for few reasons. She had a leukocytosis, diverticulitis, possible mass, chronic obstructive pulmonary disease, hypertension, diabetes. Dipak Hemphill DO [facility]PITALDarien
--- NOTE | 2017-06-09 00:28 | PN ---
ENDO FOLLOWUP NOTE ROOM: 372. SUBJECTIVE: This is an 87-year-old female with recent uncontrolled type 2 insulin requiring diabetes, now being followed closely for metabolic management. She is currently only on the liquid diet and undergoing a GI workup as noted thereof. They found a cecal colonic mass by CAT scans of the abdomen and pelvis as noted. Her glycemic levels are fluctuating and are ranging from 232 to 362 mg/dL. Her bedtime glucose was 294 to 421 mg/dL last night as noted. The latest chemistry shows a BUN of 19, sodium 138, potassium 4.0, chloride 104, CO2 of 25, glucose 75 and creatinine 0.6. So at this time, we will modify her basal and bolus insulin regimen and increase the Levemir to 6 units subcutaneous at 10:00 a.m. daily with Levemir given at 4 units subcutaneous at bedtime daily as ordered. As her oral intake improves and as she is advanced to solid food, then we will switch her over to a basal and bolus insulin regimen, which is more physiologic as noted. We will follow and advice accordingly. Jessika Nogueira MD
[2017-06-09] MEDS: Vancomycin 1gm in NS 250ml 1 GM/250 ML BAG IVPB SCH ×2 (04:12→16:29)
--- NOTE | 2017-06-09 05:04 | CON ---
DATE OF CONSULTATION: 06/08/2017 HISTORY: The patient is an 87-year-old woman, who presented to the emergency room with atypical chest pain. PAST MEDICAL HISTORY: Includes hypertension, COPD from smoking, diabetes mellitus as well as GERD. She denies previous cardiac history. No chest pain currently. SOCIAL HISTORY: The patient is a former smoker. REVIEW OF SYSTEMS: Reviewed through her granddaughter. No previous cardiac history is noted. No active angina. She does complain of occasional dyspnea. PHYSICAL EXAMINATION VITAL SIGNS: Blood pressure is 136/65, the heart rate is in the 60s. NECK: Negative JVD. LUNGS: Without rales. HEART: S1, S2. EXTREMITIES: Without edema. EKG shows sinus rhythm with no acute changes. LABORATORY DATA: The glucose is 240, troponin's were not done. IMPRESSION: 1. Intermittent dyspnea. 2. No chest pain now. 3. Diabetes mellitus. 4. Hypertension. 5. Chronic obstructive pulmonary disease. 6. History of hypercholesterolemia. Given these findings, we will obtain an echocardiogram to evaluate her LV function. Yahir Ortega MD
[2017-06-09] MEDS: Aztreonam 1 Gm in NS 100mL 100 ML IVPB SCH ×3 (05:42→21:11)
[2017-06-09 06:46] LABS: HEMOGLOBIN 10.1 gm/dL (12.0-16.0); MEAN CELL VOLUME 84.6 fL (80.0-105.0); MEAN CORPUSCULAR HEMOGLOBIN 27.2 pg (25.0-35.0); MEAN CORPUSCULAR HGB CONC 32.2 g/dl (31.0-37.0); MEAN PLATELET VOLUME 9.7 fl (7.0-11.0); RBC 3.71 10^6/uL (3.5-6.1); RED CELL DISTRIBUTION WIDTH 14.5 % (11.5-14.5); WHITE BLOOD COUNT 8.9 10^3/ul (4.5-11.0)
[2017-06-09] MEDS: metroNIDAZOLE IV 500 mg/100 ml 500 MG/100 ML BAG IVPB SCH ×3 (06:53→21:11)
[2017-06-09 07:15] LABS: ALB/GLOB RATIO 0.7 (1.1-1.8); ALBUMIN 2.7 g/dL (3.0-4.8); ALT/SGPT 22 U/L (7-56); AST/SGOT 37 U/L (15-39); BLOOD UREA NITROGEN 7 mg/dL (7-21); CALCIUM 9.3 mg/dL (8.4-10.5); GFR AFRICAN-AMERICAN > 60; GFR NON-AFRICAN AMERICAN > 60
[2017-06-09] MEDS ORDERED: Barium Sulfate Susp 2.1% w/v, 2.0% w/w 450 mL Bottle PO ONE (07:33)
[2017-06-09] MEDS: Insulin Reg-LOW-Coverage SC SCH ×4 (08:35→21:15)
[2017-06-09] MEDS: POLYETHYLENE GLYCOL 3350 17 GM/Dose PACKET PO SCH ×2 (09:55→10:06)
[2017-06-09] MEDS: Insulin Detemir 100 units/ml Vial (Levemir) SC SCH ×2 (09:56→21:13)
[2017-06-09] MEDS: Metoprolol Succinate 25 mg XL Tab PO SCH (09:56)
--- NOTE | 2017-06-09 10:25 | CP.PCM.PCO ---
Physician Communication Note - Physician Communication Note Physician Communication Note: no acute issues will f/u tomorrow
--- NOTE | 2017-06-09 11:26 | CP.PCM.PN ---
Subjective - Date & Time of Evaluation Date of Evaluation: 06/09/17 Time of Evaluation: 06:45 - Subjective Subjective: General Surgery Dr. Larios Pt S&E @bedside. CARL. denies N/V, D/C. tolerating diet. Objective - Vital Signs/Intake and Output Vital Signs (last 24 hours): Temp Pulse Resp BP Pulse Ox 98 F 67 20 144/69 97 06/08/17 16:00 06/09/17 09:56 06/08/17 16:00 06/09/17 09:56 06/08/17 16:00 Intake and Output: 06/09/17 06/09/17 06:59 18:59 Intake Total 1855 Output Total 700 Balance 1155 - Medications Medications: Current Medications Hydralazine HCl (Apresoline) 10 mg PO QID PRN PRN Reason: Systolic Blood Pressure Last Admin: 06/04/17 21:54 Dose: 10 mg Metronidazole (Flagyl) 500 mg in 100 mls @ 100 mls/hr IVPB Q8 [facility] PRN Reason: Protocol Last Admin: 06/09/17 06:53 Dose: 100 mls/hr Sodium Chloride (Sodium Chloride 0.45%) 1,000 mls @ 40 mls/hr IV .Q24H [facility] Last Admin: 06/06/17 21:20 Dose: 40 mls/hr Aztreonam (Azactam 1 Gm) 100 mls @ 100 mls/hr IVPB Q8 [facility] PRN Reason: Protocol Stop: 06/11/17 06:46 Last Admin: 06/09/17 05:42 Dose: 100 mls/hr Vancomycin HCl (Vancomycin 1gm) 1 gm in 250 mls @ 167 mls/hr IVPB Q12H [facility] PRN Reason: Protocol Last Admin: 06/09/17 04:12 Dose: 167 mls/hr Insulin Detemir (Levemir) 4 unit SC HS [facility] Last Admin: 06/08/17 21:34 Dose: 4 unit Insulin Detemir (Levemir) 6 unit SC DAILY [facility] Last Admin: 06/09/17 09:56 Dose: 6 unit Insulin Human Regular (Humulin R Low) 0 units SC ACHS [facility] PRN Reason: Protocol Last Admin: 06/09/17 08:35 Dose: Not Given Levetiracetam (Keppra) 250 mg PO BID [facility] Last Admin: 06/09/17 09:55 Dose: 250 mg Metoprolol Succinate (Toprol Xl) 25 mg PO DAILY [facility] Last Admin: 06/09/17 09:56 Dose: 25 mg Montelukast Sodium (Singulair) 10 mg PO HS [facility] Last Admin: 06/08/17 21:35 Dose: 10 mg Morphine Sulfate (Morphine) 4 mg IVP Q4H PRN PRN Reason: moderate to severe pain Last Admin: 06/07/17 21:27 Dose: 4 mg Ondansetron HCl (Zofran Inj) 4 mg IVP Q4 PRN PRN Reason: Nausea/Vomiting Pantoprazole Sodium (Protonix Inj) 40 mg IVP DAILY [facility] Last Admin: 06/09/17 09:55 Dose: 40 mg Polyethylene Glycol (Miralax) 17 gm PO DAILY [facility] Last Admin: 06/09/17 10:06 Dose: Not Given Quetiapine Fumarate (Seroquel) 12.5 mg PO HS PRN; Protocol PRN Reason: AMS, agitation/psychosis Last Admin: 06/06/17 21:21 Dose: 12.5 mg Ziprasidone (Geodon Inj) 10 mg IM Q12H PRN; Protocol PRN Reason: severe agitation/psychosis - Labs Labs: 06/09/17 06:15 06/09/17 06:15 - Constitutional Appears: Non-toxic, No Acute Distress - Head Exam Head Exam: NORMAL INSPECTION - ENT Exam ENT Exam: Mucous Membranes Moist - Respiratory Exam Respiratory Exam: NORMAL BREATHING PATTERN. absent: Accessory Muscle Use, Respiratory Distress - Cardiovascular Exam Cardiovascular Exam: absent: Bradycardia, Tachycardia - GI/Abdominal Exam GI & Abdominal Exam: Guarding (voluntary), Soft, Tenderness (R lumbar/elbert- umbilical TTP). absent: Distended, Rebound - Extremities Exam Extremities Exam: Normal Inspection - Neurological Exam Neurological Exam: Alert, Awake - Psychiatric Exam Psychiatric exam: Normal Affect, Normal Mood - Skin Skin Exam: Dry, Intact, Normal Color, Warm Assessment and Plan - Assessment and Plan (Free Text) Assessment: 87 y/o F w/ R ileocecal inflammatory mass - diverticulitis vs appendicitis vs perf colon mass - repeat CT today, f/u report - cont IV Abx per - OR for R sarah-colectomy - Echo today, f/u Cardiology recs - cont medical management Pt discussed w/ Dr. Ric Ortiz DO PGY2
--- NOTE | 2017-06-09 12:40 | PN ---
DATE OF SERVICE: 06/09/2017 I examined the patient this morning. She is an 87-year-old female admitted with complaints of abdominal pain, extremely significant periumbilical right lower quadrant with abnormal CT scan. Clinically, the patient appears significantly improved relative to the day of admission on the current regimen. I reviewed the case with the nurse on the floor. Therapeutic regimen at the current time point includes 3 antibiotics. There is no diarrhea. There is no hematemesis or rectal bleeding. Pain is dimunitive at this point in time. I reviewed notes of Dr. Kanchan PICKETT as well as cardiology surgeon's notes. At this time point, patient is significantly improved, relatively asymptomatic from a GI view point. Her WBC count has improved on her current antibiotics initially from 20,000 plus down to about 9000, so I will sign off the case today. Sai Dawson DO, PhD [facility]
--- NOTE | 2017-06-09 12:55 | CT ---
PROCEDURE: CT Abdomen and Pelvis without intravenous contrast HISTORY: compare COMPARISON: 06/05/2017 TECHNIQUE: Without contrast. Contrast Dose: Radiation dose: Total exam DLP = 878 mGy-cm. This CT exam was performed using one or more of the following dose reduction techniques: Automated exposure control, adjustment of the mA and/or kV according to patient size, and/or use of iterative reconstruction technique. FINDINGS: LOWER THORAX: Unremarkable. LIVER: Unremarkable. No gross lesion or ductal dilatation. GALLBLADDER AND BILE DUCTS: Gallbladder removed PANCREAS: Unremarkable. No gross lesion or ductal dilatation. SPLEEN: Unremarkable. ADRENALS: Unremarkable. No mass. KIDNEYS AND URETERS: Unremarkable. No hydronephrosis. No solid mass. VASCULATURE: Unremarkable. No aortic aneurysm. BOWEL: There is improvement in the cecal mass or cecal phlegmon. Previously this measured approximately 6.5 x 9.7 cm and now measures 4.1 x 7.3 cm. This is best seen on axial image 115 series 2 compared to image 104 series 2 of the previous exam. APPENDIX: Unremarkable. Normal appendix. PERITONEUM: Unremarkable. No free fluid. No free air. LYMPH NODES: Unremarkable. No enlarged lymph nodes. BLADDER: Unremarkable. REPRODUCTIVE: Unremarkable. BONES: No acute fracture. OTHER FINDINGS: None. IMPRESSION: Decreased size of inflammatory mass or phlegmon involving the cecum
--- NOTE | 2017-06-09 16:33 | PN ---
DATE: SUBJECTIVE: I saw Simi resting comfortably in bed. She is asking for food. She is n.p.o. because of the possibility of doing a surgery tomorrow with Dr. Larios for a colon mass. Repeating a CAT scan today to make sure that they know what the objective is. She is being seen by Endocrinology, Cardiology, Psychiatry, Infectious Disease, and Surgery. She has multiple issues. She has diverticulitis with elevated white count, a mass in the colon, COPD, hypertension, diabetes, and systemic inflammatory response. She is on IV antibiotics. She is alert and aware and understands the situation. PHYSICAL EXAMINATION GENERAL: She is comfortable in bed. VITAL SIGNS: Temperature 98, 70 pulse, blood pressure 162/78, respiratory rate 20, and O2 saturation 97% on room air. HEENT: Head is atraumatic and normocephalic. Throat is moist. NECK: Supple. CARDIOPULMONARY: Heart, regular rate. LUNGS: Decreased breath sounds, but clear. ABDOMEN: Soft and nontender. Positive bowel sounds. EXTREMITIES: No edema. She is currently on Apresoline, Azactam IV, Flagyl IV, Geodon, insulin coverage, Keppra, Levemir, MiraLax, morphine for pain, Protonix, Seroquel, Singulair, IV fluids, Toprol, vancomycin IV, and Zofran. LABORATORY DATA: She has sodium 141, potassium 4.2, BUN is 7, creatinine 0.4, GFR is greater than 60, last blood sugar was 137, total bilirubin is 0.6, AST is 37, ALT is 22, alkaline phosphatase 91, total protein 6.7. Her white count is down to 8.9, best it has been, hemoglobin 10.1, hematocrit 31.4, and platelets of 252. She has a CAT scan scheduled for today that will let us know the plan for possible surgery tomorrow. We will continue with aggressive treatment and care. She is probably going to need to go for subacute rehab finished. Discussed this with surgery. We will check her labs tomorrow. Continue with aggressive treatment and care. Dipak Hemphill DO [facility] # [id number] MTDD
--- NOTE | 2017-06-09 18:43 | PN ---
Room #372. SUBJECTIVE: This is an 87-year-old female with recent uncontrolled type 2 insulin requiring diabetes, currently undergoing GI workup for a colonic mass, lesion and is also now being followed closely for metabolic management. She was on the liquid diet for several days as noted and today still on the liquid diet as ordered by her primary physician. Her glucose values are fluctuating and today's glucose levels have raised from 143 to 335 mg/dL. Her latest chemistries showed a BUN of 7, sodium 141, potassium 4.2, chloride 105, CO2 29, glucose 137 and creatinine 0.5, so at this time we will increase her basal insulin with Levemir to be given at 12 units subQ at 10 a.m. daily and 8 units subQ at bedtime daily as ordered. We will also continue the low-dose correction scale using Novolog insulin as given. We will titrate incremental as indicated to optimize metabolic control. We will also obtain serum chemistry for supplement accordingly as needed. We will follow this. Jessika Nogueira MD
--- NOTE | 2017-06-10 01:55 | PN ---
DATE: 06/09/2017 CARDIOLOGY FOLLOWUP SUBJECTIVE: The patient is chest pain free. PHYSICAL EXAMINATION: VITAL SIGNS: Stable. Blood pressure is 144/69, the heart rate is in the 60s. NECK: Negative JVD. LUNGS: Without rales. HEART: S1 and S2. EXTREMITIES: Without edema. LABORATORY DATA: Hemoglobin is 10.1. Chemistries: Glucose is 137. IMPRESSION: 1. Resolution of atypical chest pain. 2. Diabetes mellitus. 3. Hypertension. 4. Chronic obstructive pulmonary disease. 5. History of hypercholesterolemia. In preparations for possible surgery, we will obtain an echocardiogram which was ordered yesterday and awaiting for the tests and results. Yahir Ortega MD
[2017-06-10 07:27] LABS: ALB/GLOB RATIO 0.7 (1.1-1.8); ALBUMIN 2.8 g/dL (3.0-4.8); ALT/SGPT 23 U/L (7-56); AST/SGOT 29 U/L (15-39); BLOOD UREA NITROGEN 6 mg/dL (7-21); CALCIUM 9.3 mg/dL (8.4-10.5); GFR AFRICAN-AMERICAN > 60; GFR NON-AFRICAN AMERICAN > 60; HEMOGLOBIN 10.5 gm/dL (12.0-16.0); MEAN CELL VOLUME 86.1 fL (80.0-105.0); MEAN CORPUSCULAR HGB CONC 32.5 g/dl (31.0-37.0); MEAN PLATELET VOLUME 10.5 fl (7.0-11.0); RBC 3.75 10^6/uL (3.5-6.1); RED CELL DISTRIBUTION WIDTH 14.6 % (11.5-14.5)
--- NOTE | 2017-06-10 08:08 | CP.PCM.PN ---
Subjective - Date & Time of Evaluation Date of Evaluation: 06/10/17 Time of Evaluation: 07:05 - Subjective Subjective: SURGERY NOTE FOR DR. LYON 87F seen and examined at bedside. Patients pain is improving, denies nausea, vomiting. Diet advanced. Objective - Vital Signs/Intake and Output Vital Signs (last 24 hours): Temp Pulse Resp BP Pulse Ox 98.4 F 70 20 140/70 98 06/09/17 16:00 06/09/17 16:00 06/09/17 16:00 06/09/17 16:00 06/09/17 16:00 Intake and Output: 06/10/17 06/10/17 06:59 18:59 Intake Total 660 Balance 660 - Medications Medications: Current Medications Hydralazine HCl (Apresoline) 10 mg PO QID PRN PRN Reason: Systolic Blood Pressure Last Admin: 06/04/17 21:54 Dose: 10 mg Metronidazole (Flagyl) 500 mg in 100 mls @ 100 mls/hr IVPB Q8 [facility]URO PRN Reason: Protocol Last Admin: 06/09/17 21:11 Dose: 100 mls/hr Sodium Chloride (Sodium Chloride 0.45%) 1,000 mls @ 40 mls/hr IV .Q24H ARTURO Last Admin: 06/06/17 21:20 Dose: 40 mls/hr Aztreonam (Azactam 1 Gm) 100 mls @ 100 mls/hr IVPB Q8 ARTURO PRN Reason: Protocol Stop: 06/11/17 06:46 Last Admin: 06/09/17 21:11 Dose: 100 mls/hr Vancomycin HCl (Vancomycin 1gm) 1 gm in 250 mls @ 167 mls/hr IVPB Q12H ARTURO PRN Reason: Protocol Last Admin: 06/09/17 16:29 Dose: 167 mls/hr Insulin Detemir (Levemir) 12 unit SC DAILY [facility] Insulin Detemir (Levemir) 8 unit SC HS [facility] Last Admin: 06/09/17 21:13 Dose: 8 unit Insulin Human Regular (Humulin R Low) 0 units SC ACHS [facility]URO PRN Reason: Protocol Last Admin: 06/09/17 21:15 Dose: Not Given Levetiracetam (Keppra) 250 mg PO BID [facility] Last Admin: 06/09/17 09:55 Dose: 250 mg Metoprolol Succinate (Toprol Xl) 25 mg PO DAILY [facility] Last Admin: 06/09/17 09:56 Dose: 25 mg Montelukast Sodium (Singulair) 10 mg PO HS [facility] Last Admin: 06/09/17 21:15 Dose: 10 mg Morphine Sulfate (Morphine) 4 mg IVP Q4H PRN PRN Reason: moderate to severe pain Last Admin: 06/07/17 21:27 Dose: 4 mg Ondansetron HCl (Zofran Inj) 4 mg IVP Q4 PRN PRN Reason: Nausea/Vomiting Pantoprazole Sodium (Protonix Inj) 40 mg IVP DAILY [facility] Last Admin: 06/09/17 09:55 Dose: 40 mg Polyethylene Glycol (Miralax) 17 gm PO DAILY [facility] Last Admin: 06/09/17 10:06 Dose: Not Given Quetiapine Fumarate (Seroquel) 12.5 mg PO HS PRN; Protocol PRN Reason: AMS, agitation/psychosis Last Admin: 06/06/17 21:21 Dose: 12.5 mg Ziprasidone (Geodon Inj) 10 mg IM Q12H PRN; Protocol PRN Reason: severe agitation/psychosis - Labs Labs: 06/10/17 05:50 06/10/17 05:50 - Constitutional Appears: Non-toxic, No Acute Distress - Respiratory Exam Respiratory Exam: Clear to Ausculation Bilateral, NORMAL BREATHING PATTERN - Cardiovascular Exam Cardiovascular Exam: REGULAR RHYTHM, +S1, +S2 - GI/Abdominal Exam GI & Abdominal Exam: Soft, Tenderness (mildly tender in RLQ). absent: Distended , Firm, Guarding, Rebound - Neurological Exam Neurological Exam: Alert, Awake Assessment and Plan - Assessment and Plan (Free Text) Assessment: 87F with ileocecal Inflammatory mass as seen on CT, cause unknown - responds well to antibiotic as seen on repeat CT Plan: - continue antibiotics - advance diet - reevaluate inflammatory mass in future - CT vs Colonoscopy Further recs discuss with Dr. Ric Crews, PGY2
--- NOTE | 2017-06-10 08:09 | PN ---
DATE: 06/09/2017 SUBJECTIVE: The patient is in bed, in no acute distress, nontoxic. PHYSICAL EXAMINATION: VITAL SIGNS: Temperature 98, blood pressure is 140/70, respiratory rate of 16. HEENT: Unremarkable. NECK: Supple. HEART: Normal S1 and S2. LUNGS: Decreased breath sounds. ABDOMEN: Soft, nontender. LABORATORY DATA: White count of 8.9, hemoglobin of 10, platelets 352. BUN 7, creatinine 0.5, urinalysis is noted. Microbiology is noted. The patient had a CAT scan of the abdomen and pelvis, decreased size of inflammatory mass or phlegmon involving the cecum. ASSESSMENT AND PLAN: An 87-year-old female with systemic inflammatory response syndrome in the right lower quadrant phlegmon with corynebacterium bacteremia most likely a contamination, today is day #5 of vancomycin, Azactam, and Flagyl. We will repeat CAT scan if appearing to be improving in size. Etiology of the mass is not clear whether it is diverticulitis, appendicitis, perforation, or colon mass. We will discuss with surgery. Delonte Nair MD
[2017-06-10] MEDS: Insulin Reg-LOW-Coverage SC SCH ×4 (08:42→22:20)
[2017-06-10] MEDS: POLYETHYLENE GLYCOL 3350 17 GM/Dose PACKET PO SCH (09:13)
[2017-06-10] MEDS: Insulin Detemir 100 units/ml Vial (Levemir) SC SCH ×2 (09:13→22:19)
[2017-06-10] MEDS: Metoprolol Succinate 25 mg XL Tab PO SCH (09:13)
--- NOTE | 2017-06-10 13:09 | PN ---
DATE: She is resting comfortably in bed. She tells me she feels okay, mild appetite. I discussed with surgery. They are going to hold off on surgery. I will increase her diet. She is on IV antibiotics. The mass in her intestine . GI did not wanted to have surgery. We will continue with the IV antibiotics. I will see her back down here at [facility], get her out of bed to chair, physical therapy, increase her diet. She is unclear right now does with that. She has diverticulitis, mass in the colon, COPD, hypertension, diabetes and we are going to keep a close eye on her and check her labs tomorrow. Dipak Hemphill DO MTDD
[2017-06-10] MEDS: metroNIDAZOLE IV 500 mg/100 ml 500 MG/100 ML BAG IVPB SCH ×2 (13:19→21:17)
[2017-06-10] MEDS: Aztreonam 1 Gm in NS 100mL 100 ML IVPB SCH ×2 (13:19→21:15)
--- NOTE | 2017-06-10 13:41 | PN ---
SUBJECTIVE: This is an 87-year-old female with recent uncontrolled type 2 insulin diabetes currently undergoing GI workup for a colonic mass, lesion and is also being followed closely for metabolic management. Her glycemic levels are much improved at this time, although she is only on the liquid diet as noted. Her glucose levels have ranged from 185 to 196 mg/dL. It was 288 at bedtime last night. The latest chemistries shows a BUN of 6, sodium 141, potassium 4.3, chloride 107, CO2 of 29, glucose 168 and creatinine 0.5, so at this time we will continue the same basal and bolus insulin regimen as ordered with Levemir given as 12 units subQ at 10:00 a.m. daily and Levemir given as 8 units subQ at bedtime daily as ordered. We will continue the same low-dose correction scale using regular insulin as given. As her oral intake is advanced then we will start her back on her basal and bolus insulin regimen as indicated. We will follow and advice accordingly. Jessika Nogueira MD
--- NOTE | 2017-06-10 13:57 | CARD ---
APPROVED REPORT EXAM: Two-dimensional and M-mode echocardiogram with Doppler and color Doppler. INDICATION Dyspnea 2D DIMENSIONS Left Atrium (2D)3.5 (1.6-4.0cm)IVSd1.0 (0.7-1.1cm) LVDd4.0 (3.9-5.9cm)PWd1.1 (0.7-1.1cm) LVDs2.5 (2.5-4.0cm)FS (%) 38.8 % LVEF (%)69.8 (>50%) M-Mode DIMENSIONS Aortic Root3.10 (2.2-3.7cm)Aortic Cusp Exc.1.10 (1.5-2.0cm) Aortic Valve AoV Peak Kdzfwdkk089.0cm/sAoV VTI44.7cmAO Peak GR.15mmHg LVOT Peak Yidxdpoh587.0cm/sLVOT VTI26.10cmAO Mean GR.8mmHg Mitral Valve MV E Cxgbgakp73.9cm/sMV A Rputrpem516.0cm/sE/A ratio0.8 TDI Lateral E' Peak V8.29cm/sMedial E' Peak V6.24cm/sE/Lateral E'11.7 E/Medial E'15.5 Pulmonary Valve PV Peak Hxfewute54.7cm/sPV Peak Grad.2mmHg Tricuspid Valve TR Peak Dcjxwlrw685ej/sRAP WKSNAGGR08daTrGB Peak Gr.35mmHg [id number] LEFT VENTRICLE The left ventricle is normal size. There is normal left ventricular wall thickness. The left ventricular function is normal. The left ventricular ejection fraction is within the normal range. There is normal LV segmental wall motion. Transmitral Doppler flow pattern is Grade I-abnormal relaxation pattern. RIGHT VENTRICLE The right ventricle is normal size. There is normal right ventricular wall thickness. The right ventricular systolic function is normal. ATRIA The left atrium size is normal. The right atrium size is normal. AORTIC VALVE The aortic valve is mildly sclerotic. There is trace aortic regurgitation. MITRAL VALVE Mitral regurgitation is trace. TRICUSPID VALVE There is mild to moderate pulmonary hypertension. GREAT VESSELS The aortic root is normal in size. PERICARDIAL EFFUSION There is a trace loculated anterior pericardial effusion. <Conclusion> The left ventricle is normal size. There is normal left ventricular wall thickness. The left ventricular function is normal. The left ventricular ejection fraction is within the normal range. There is normal LV segmental wall motion. Transmitral Doppler flow pattern is Grade I-abnormal relaxation pattern. The aortic valve is mildly sclerotic. There is trace aortic regurgitation. There is mild to moderate pulmonary hypertension.
--- NOTE | 2017-06-10 14:29 | PN ---
DATE: 06/10/2017 SUBJECTIVE: The patient is sitting in her chair comfortable without shortness of breath or chest pain. PHYSICAL EXAMINATION VITAL SIGNS: Blood pressure is 163/78, heart rate in the 60s. NECK: Negative JVD. LUNGS: Without rales. HEART: S1, S2. EXTREMITIES: Without edema. LABORATORY DATA: White count is down to 10, hemoglobin is 10.5. Chemistries; BUN and creatinine are unremarkable, glucose is 168. IMPRESSION: 1. Abdominal mass. 2. Hypertension. 3. Diabetes mellitus. 4. Chronic obstructive pulmonary disease. 5. History of hypocholesterolemia. Given these findings, the echo has still done been done. Call the echo department. The patient's echo will be done later this afternoon. Yahir Ortega MD
--- NOTE | 2017-06-10 16:21 | CP.PCM.CON ---
History of Present Illness - History of Present Illness History of Present Illness: follow-up note: shortly pt is 87 year old female with multiple medical problems, including: COPD, HTN, DM, seizure disorder, history of nephrolithiasis, S/P laparoscopic cholecystectomy, S/P cataract surgery, was admitted for evaluation of abdominal pain, was found to have cecal mass or phlegmon. Psychiatric consultation was called for evaluation of AMS, combativeness, pt has h/o Dementia. patient was followed up today, patient presented to be alert, pleasant, corporative. Patient knows that she is in [facility] knows the circumstances of her admission to the medical side, patient has episodes of confusion, but overall presents much better. as per nursing report, patient is calm, corporative, no behavioral incidents. no PRN meds. MSE: pt was alert, oriented in self, place, but not date, pt was pleasant and cooperative, good eye contact, speech was normal rate, tone, quality and quantity, mood " I am little better, i still have little pain in my stomach", affect was reactive, mood congruent, thought process goal directed, thought content: pt denied v/a/t hallucinations, denied paranoid ideation, pt does not appear to be psychotic, I/J are fair, impulses are unpredictable, but better controlled now (pt had episode of confusion, restlessness, agitation two nights ago). 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 Plan: seroquel 12.5mg hs prn for possible agitation, last dose was June 06 PRN geodone 10mg q12hr (for severe agitation), patient did not get any IM meeting with pt's son appreciated 06/06/17: discussed possible POA, advance directives GI/surgical teams f/u thank you very much for letting me participate in care of your pt no acute psych issues, delirium is better, will sign off Past Patient History - Infectious Disease Hx of Infectious Diseases: None - Tetanus Immunizations Tetanus Immunization: Unknown - Past Social History Smoking Status: Former Smoker - CARDIAC Hx Cardiac Disorders: Yes Hx Hypertension: Yes - PULMONARY Hx Chronic Obstructive Pulmonary Disease (COPD): Yes - NEUROLOGICAL Hx Neurological Disorder: Yes Hx Seizures: Yes - HEENT Hx Cataracts: Yes (bilateral sx) - RENAL Hx Chronic Kidney Disease: Yes Hx Kidney Stones: Yes - ENDOCRINE/METABOLIC Hx Diabetes Mellitus Type 2: Yes - HEMATOLOGICAL/ONCOLOGICAL Hx Blood Disorders: Yes Hx Anemia: Yes - INTEGUMENTARY Hx Dermatological Problems: No - MUSCULOSKELETAL/RHEUMATOLOGICAL Hx Arthritis: Yes - GASTROINTESTINAL Hx Gastrointestinal Disorders: Yes Hx Gastroesophageal Reflux: Yes - GENITOURINARY/GYNECOLOGICAL Hx Genitourinary Disorders: No - PSYCHIATRIC Hx Psychophysiologic Disorder: Yes Hx Depression: Yes Hx Emotional Abuse: No Hx Physical Abuse: No - SURGICAL HISTORY Hx Cholecystectomy: Yes - ANESTHESIA Hx Anesthesia: Yes Hx Anesthesia Reactions: Yes Hx Malignant Hyperthermia: No Meds Allergies/Adverse Reactions: Allergies Allergy/AdvReac Type Severity Reaction Status Date / Time Penicillins Allergy RASH Verified 06/04/17 14:42 Sulfa (Sulfonamide Allergy RASH Verified 06/04/17 14:42 Antibiotics) - Medications Medications: Current Medications Hydralazine HCl (Apresoline) 10 mg PO QID PRN PRN Reason: Systolic Blood Pressure Last Admin: 06/04/17 21:54 Dose: 10 mg Metronidazole (Flagyl) 500 mg in 100 mls @ 100 mls/hr IVPB Q8 ARTURO PRN Reason: Protocol Last Admin: 06/10/17 13:19 Dose: 100 mls/hr Sodium Chloride (Sodium Chloride 0.45%) 1,000 mls @ 40 mls/hr IV .Q24H ARTURO Last Admin: 06/06/17 21:20 Dose: 40 mls/hr Aztreonam (Azactam 1 Gm) 100 mls @ 100 mls/hr IVPB Q8 ARTURO PRN Reason: Protocol Stop: 06/11/17 06:46 Last Admin: 06/10/17 13:19 Dose: 100 mls/hr Vancomycin HCl (Vancomycin 1gm) 1 gm in 250 mls @ 167 mls/hr IVPB Q12H ARTURO PRN Reason: Protocol Last Admin: 06/09/17 16:29 Dose: 167 mls/hr Insulin Detemir (Levemir) 12 unit SC DAILY [facility] Last Admin: 06/10/17 09:13 Dose: 12 unit Insulin Detemir (Levemir) 8 unit SC HS [facility] Last Admin: 06/09/17 21:13 Dose: 8 unit Insulin Human Regular (Humulin R Low) 0 units SC ACHS [facility]URO PRN Reason: Protocol Last Admin: 06/10/17 12:43 Dose: 2 units Levetiracetam (Keppra) 250 mg PO BID [facility] Last Admin: 06/10/17 09:13 Dose: 250 mg Metoprolol Succinate (Toprol Xl) 25 mg PO DAILY [facility] Last Admin: 06/10/17 09:13 Dose: 25 mg Montelukast Sodium (Singulair) 10 mg PO HS [facility] Last Admin: 06/09/17 21:15 Dose: 10 mg Morphine Sulfate (Morphine) 4 mg IVP Q4H PRN PRN Reason: moderate to severe pain Last Admin: 06/07/17 21:27 Dose: 4 mg Ondansetron HCl (Zofran Inj) 4 mg IVP Q4 PRN PRN Reason: Nausea/Vomiting Pantoprazole Sodium (Protonix Inj) 40 mg IVP DAILY [facility] Last Admin: 06/10/17 09:12 Dose: 40 mg Polyethylene Glycol (Miralax) 17 gm PO DAILY [facility] Last Admin: 06/10/17 09:13 Dose: 17 gm Quetiapine Fumarate (Seroquel) 12.5 mg PO HS PRN; Protocol PRN Reason: AMS, agitation/psychosis Last Admin: 06/06/17 21:21 Dose: 12.5 mg Ziprasidone (Geodon Inj) 10 mg IM Q12H PRN; Protocol PRN Reason: severe agitation/psychosis Results - Vital Signs Recent Vital Signs: Last Vital Signs Temp 98.1 F 06/10/17 06:00 Pulse 66 06/10/17 09:13 Resp 18 06/10/17 06:00 BP 163/78 H 06/10/17 09:13 Pulse Ox 95 06/10/17 06:00 - Labs Result Diagrams: 06/10/17 05:50 06/10/17 05:50 Labs: Laboratory Results - last 24 hr 06/09/17 06/10/17 06/10/17 21:08 05:50 05:50 WBC 10.0 RBC 3.75 Hgb 10.5 L Hct 32.3 L MCV 86.1 MCH 28.0 MCHC 32.5 RDW 14.6 H Plt Count 377 MPV 10.5 Sodium 141 Potassium 4.3 Chloride 107 Carbon Dioxide 29 Anion Gap 9 L BUN 6 L Creatinine 0.5 Est GFR ( Amer) > 60 Est GFR (Non-Af Amer) > 60 POC Glucose (mg/dL) 196 H Random Glucose 168 H Calcium 9.3 Total Bilirubin 0.5 AST 29 ALT 23 Alkaline Phosphatase 91 Total Protein 6.8 Albumin 2.8 L Globulin 4.0 Albumin/Globulin Ratio 0.7 L 06/10/17 06/10/17 07:26 11:19 WBC RBC Hgb Hct MCV MCH MCHC RDW Plt Count MPV Sodium Potassium Chloride Carbon Dioxide Anion Gap BUN Creatinine Est GFR ( Amer) Est GFR (Non-Af Amer) POC Glucose (mg/dL) 185 H 211 H Random Glucose Calcium Total Bilirubin AST ALT Alkaline Phosphatase Total Protein Albumin Globulin Albumin/Globulin Ratio
[2017-06-10] MEDS ORDERED: Vancomycin 1gm in NS 250ml 1 GM/250 ML BAG IVPB SCH (18:37)
[2017-06-10] MEDS: Vancomycin 1gm in NS 250ml 1 GM/250 ML BAG IVPB SCH ×2 (18:38→18:40)
[2017-06-10 19:31] VITALS: O2SAT 98
[2017-06-10] MEDS: Sodium Chloride 0.45% 1,000 ML IV SCH (21:15)
[2017-06-11] MEDS: metroNIDAZOLE IV 500 mg/100 ml 500 MG/100 ML BAG IVPB SCH ×2 (05:01→17:24)
[2017-06-11] MEDS: Vancomycin 1gm in NS 250ml 1 GM/250 ML BAG IVPB SCH ×2 (05:01→17:25)
[2017-06-11] MEDS: Aztreonam 1 Gm in NS 100mL 100 ML IVPB SCH ×2 (05:02→17:23)
[2017-06-11 06:28] LABS: HEMOGLOBIN 10.1 gm/dL (12.0-16.0); MEAN CELL VOLUME 84.5 fL (80.0-105.0); MEAN CORPUSCULAR HEMOGLOBIN 27.5 pg (25.0-35.0); MEAN CORPUSCULAR HGB CONC 32.6 g/dl (31.0-37.0); MEAN PLATELET VOLUME 9.3 fl (7.0-11.0); RBC 3.67 10^6/uL (3.5-6.1); WHITE BLOOD COUNT 9.2 10^3/ul (4.5-11.0)
[2017-06-11 07:14] LABS: ALB/GLOB RATIO 0.7 (1.1-1.8); ALBUMIN 2.7 g/dL (3.0-4.8); ALT/SGPT 17 U/L (7-56); AST/SGOT 36 U/L (15-39); BLOOD UREA NITROGEN 6 mg/dL (7-21); CALCIUM 9.3 mg/dL (8.4-10.5); GFR AFRICAN-AMERICAN > 60; GFR NON-AFRICAN AMERICAN > 60
[2017-06-11] MEDS: Insulin Reg-LOW-Coverage SC SCH ×3 (07:30→18:31)
--- NOTE | 2017-06-11 07:41 | PN ---
DATE: 06/10/2017 SUBJECTIVE: The patient is in really no acute distress, nontoxic. PHYSICAL EXAMINATION: GENERAL: Temperature is 98, blood pressure is 160/70, respiratory rate of 16. HEENT: Unremarkable. NECK: Supple. LUNGS: Decreased breath sounds. HEART: Normal S1, S2. ABDOMEN: Soft, nontender. LABORATORY DATA: Reveals a white count of 10,000, hemoglobin of 10. Chemistry reveals a BUN of 6, creatinine of 0.5. Blood culture is Corynebacterium. ASSESSMENT AND PLAN: This is an 87-year-old female with systemic inflammatory response syndrome and right quadrant phlegmon with Corynebacterium bacteremia, most likely a contamination, day number 6 of vanco, Azactam and Flagyl with a repeat CAT scan that shows improvement, diverticulitis versus appendicitis, perforated colon mass. REVIEW OF THE ORDERS: In view of the patient's Flagyl and Azactam require renewal which we would do so and the patient's vancomycin also requires renewal which we will also do so. The patient gets vancomycin at 4:15 and 16:15 and we will order a vancomycin level tomorrow at 15:15 that is vancomycin trough level to minimize toxicity in this elderly patient. We will follow closely with you. Delonte Nair MD
--- NOTE | 2017-06-11 09:48 | CP.PCM.PN ---
Subjective - Date & Time of Evaluation Date of Evaluation: 06/11/17 Time of Evaluation: 09:45 - Subjective Subjective: General surgery progress note for Dr. Larios PT S&E at bedside. Patient tolerating pain well. Most of pain is in right lower quadrant. PAtient made aware that antibiotics are working well for her. Patient denies fever, chills, diarrhea. Dr. Hemphill came in at time of morning rounds and mentioned that he would like to send her to [facility] for physical therapy and continue antibiotics. Objective - Vital Signs/Intake and Output Vital Signs (last 24 hours): Temp Pulse Resp BP Pulse Ox 97.6 F 70 19 148/76 98 06/10/17 16:00 06/10/17 16:00 06/10/17 16:00 06/10/17 16:00 06/10/17 16:00 Intake and Output: 06/11/17 06/11/17 06:59 18:59 Intake Total 1270 0 Balance 1270 0 - Medications Medications: Current Medications Hydralazine HCl (Apresoline) 10 mg PO QID PRN PRN Reason: Systolic Blood Pressure Last Admin: 06/04/17 21:54 Dose: 10 mg Metronidazole (Flagyl) 500 mg in 100 mls @ 100 mls/hr IVPB Q8 [facility] PRN Reason: Protocol Last Admin: 06/11/17 05:01 Dose: 100 mls/hr Sodium Chloride (Sodium Chloride 0.45%) 1,000 mls @ 40 mls/hr IV .Q24H [facility] Last Admin: 06/10/17 21:15 Dose: 40 mls/hr Vancomycin HCl (Vancomycin 1gm) 1 gm in 250 mls @ 167 mls/hr IVPB 0600,1800 [facility] PRN Reason: Protocol Last Admin: 06/11/17 05:01 Dose: 167 mls/hr Insulin Detemir (Levemir) 12 unit SC DAILY [facility] Last Admin: 06/10/17 09:13 Dose: 12 unit Insulin Detemir (Levemir) 8 unit SC HS [facility] Last Admin: 06/10/17 22:19 Dose: 8 unit Insulin Human Regular (Humulin R Low) 0 units SC ACHS [facility] PRN Reason: Protocol Last Admin: 06/10/17 22:20 Dose: Not Given Levetiracetam (Keppra) 250 mg PO BID [facility] Last Admin: 06/10/17 17:05 Dose: 250 mg Metoprolol Succinate (Toprol Xl) 25 mg PO DAILY [facility] Last Admin: 06/10/17 09:13 Dose: 25 mg Montelukast Sodium (Singulair) 10 mg PO HS [facility] Last Admin: 06/09/17 21:15 Dose: 10 mg Ondansetron HCl (Zofran Inj) 4 mg IVP Q4 PRN PRN Reason: Nausea/Vomiting Pantoprazole Sodium (Protonix Inj) 40 mg IVP DAILY [facility] Last Admin: 06/10/17 09:12 Dose: 40 mg Polyethylene Glycol (Miralax) 17 gm PO DAILY [facility] Last Admin: 06/10/17 09:13 Dose: 17 gm Quetiapine Fumarate (Seroquel) 12.5 mg PO HS PRN; Protocol PRN Reason: AMS, agitation/psychosis Last Admin: 06/06/17 21:21 Dose: 12.5 mg Ziprasidone (Geodon Inj) 10 mg IM Q12H PRN; Protocol PRN Reason: severe agitation/psychosis - Labs Labs: 06/11/17 06:00 06/11/17 06:00 - Constitutional Appears: No Acute Distress - Head Exam Head Exam: NORMAL INSPECTION, NORMOCEPHALIC - Eye Exam Eye Exam: EOMI, Normal appearance - ENT Exam ENT Exam: Mucous Membranes Moist - Neck Exam Neck Exam: Full ROM, Normal Inspection - Respiratory Exam Respiratory Exam: Clear to Ausculation Bilateral, NORMAL BREATHING PATTERN. absent: Accessory Muscle Use, Wheezes, Respiratory Distress - Cardiovascular Exam Cardiovascular Exam: REGULAR RHYTHM. absent: Bradycardia, Tachycardia - GI/Abdominal Exam GI & Abdominal Exam: Soft, Tenderness. absent: Guarding, Rigid, Pulsatile Mass , Rebound - Extremities Exam Extremities Exam: Full ROM. absent: Joint Swelling, Pedal Edema - Neurological Exam Neurological Exam: Alert, Awake, Oriented x3 - Psychiatric Exam Psychiatric exam: Normal Affect, Normal Mood - Skin Skin Exam: Dry, Intact, Normal Color, Warm Assessment and Plan - Assessment and Plan (Free Text) Assessment: 87 F with abdominal pain and inflammatory mass, improving Plan: C/w current antibiotics Per primary: plan is to send patient to [facility] for physical therapy f/u CBC c/w current pain medication. d/w Dr. Ric Warren, DO PGY1
[2017-06-11] MEDS: Insulin Detemir 100 units/ml Vial (Levemir) SC SCH (10:00)
[2017-06-11] MEDS: Metoprolol Succinate 25 mg XL Tab PO SCH (10:56)
[2017-06-11] MEDS: POLYETHYLENE GLYCOL 3350 17 GM/Dose PACKET PO SCH (10:56)
--- NOTE | 2017-06-11 11:41 | PN ---
CARDIOLOGY FOLLOWUP DATE OF FOLLOWUP: 06/11/2017 SUBJECTIVE: The patient is resting comfortably. PHYSICAL EXAMINATION: VITAL SIGNS: Blood pressure is 148/76 and heart rate is in the 70s NECK: Negative JVD. LUNGS: Without rales. HEART: Regular S1 and S2. EXTREMITIES: Without edema. LABORATORY DATA: Hemoglobin of 10.1 and glucose is 155. IMPRESSION: 1. Sepsis. 2. Stable angina. 3. Diabetes mellitus. 4. Hypertension. PLAN: Given these findings, the patient was hemodynamically stable and the cardiac status is stable. Yahir Ortega MD
--- NOTE | 2017-06-11 14:26 | PN ---
DATE: This is an 87-year-old female with recent uncontrolled type 2 insulin requiring diabetes, now being followed closely for metabolic management. She continues to be on a liquid diet and is undergoing GI workup at this time as noted. Her glycemic values are fluctuating, but improved on the Lasix. Glucose levels have ranged from 155 to 243 mg/dL. Latest chemistry showed BUN of 6, sodium 143, potassium 4.3, chloride 108, CO2 of 30, glucose 102 and creatinine 0.6. So at this time, we will continue the same basal insulin given twice a day with Levemir given 12 units subcu at 10 a.m. and Levemir given as 8 units subcu at 10 p.m. daily as ordered. We will indicated to optimize metabolic control. We will follow . Jessika Nogueira MD
--- NOTE | 2017-06-11 15:24 | CP.PCM.PN ---
Subjective - Date & Time of Evaluation Date of Evaluation: 06/11/17 Time of Evaluation: 10:15 - Subjective Subjective: Comfortable in bed, not in distress, afebrile. Objective - Vital Signs/Intake and Output Vital Signs (last 24 hours): Temp Pulse Resp BP Pulse Ox 97.6 F 70 19 148/76 98 06/10/17 16:00 06/10/17 16:00 06/10/17 16:00 06/10/17 16:00 06/10/17 16:00 Intake and Output: 06/11/17 06/11/17 06:59 18:59 Intake Total 1270 0 Balance 1270 0 - Medications Medications: Current Medications Hydralazine HCl (Apresoline) 10 mg PO QID PRN PRN Reason: Systolic Blood Pressure Last Admin: 06/04/17 21:54 Dose: 10 mg Metronidazole (Flagyl) 500 mg in 100 mls @ 100 mls/hr IVPB Q8 [facility] PRN Reason: Protocol Last Admin: 06/11/17 05:01 Dose: 100 mls/hr Sodium Chloride (Sodium Chloride 0.45%) 1,000 mls @ 40 mls/hr IV .Q24H [facility] Last Admin: 06/10/17 21:15 Dose: 40 mls/hr Vancomycin HCl (Vancomycin 1gm) 1 gm in 250 mls @ 167 mls/hr IVPB 0600,1800 [facility] PRN Reason: Protocol Last Admin: 06/11/17 05:01 Dose: 167 mls/hr Insulin Detemir (Levemir) 12 unit SC DAILY [facility] Last Admin: 06/10/17 09:13 Dose: 12 unit Insulin Detemir (Levemir) 8 unit SC HS [facility] Last Admin: 06/10/17 22:19 Dose: 8 unit Insulin Human Regular (Humulin R Low) 0 units SC ACHS [facility] PRN Reason: Protocol Last Admin: 06/10/17 22:20 Dose: Not Given Levetiracetam (Keppra) 250 mg PO BID [facility] Last Admin: 06/10/17 17:05 Dose: 250 mg Metoprolol Succinate (Toprol Xl) 25 mg PO DAILY [facility] Last Admin: 06/10/17 09:13 Dose: 25 mg Montelukast Sodium (Singulair) 10 mg PO HS [facility] Last Admin: 06/09/17 21:15 Dose: 10 mg Ondansetron HCl (Zofran Inj) 4 mg IVP Q4 PRN PRN Reason: Nausea/Vomiting Pantoprazole Sodium (Protonix Inj) 40 mg IVP DAILY [facility] Last Admin: 06/10/17 09:12 Dose: 40 mg Polyethylene Glycol (Miralax) 17 gm PO DAILY [facility] Last Admin: 06/10/17 09:13 Dose: 17 gm Quetiapine Fumarate (Seroquel) 12.5 mg PO HS PRN; Protocol PRN Reason: AMS, agitation/psychosis Last Admin: 06/06/17 21:21 Dose: 12.5 mg Ziprasidone (Geodon Inj) 10 mg IM Q12H PRN; Protocol PRN Reason: severe agitation/psychosis - Labs Labs: 06/11/17 06:00 06/11/17 06:00 - Constitutional Appears: Non-toxic, No Acute Distress - Head Exam Head Exam: NORMAL INSPECTION - Neck Exam Neck Exam: absent: Meningismus - Respiratory Exam Respiratory Exam: Decreased Breath Sounds - Cardiovascular Exam Cardiovascular Exam: +S1, +S2 - GI/Abdominal Exam GI & Abdominal Exam: Soft. absent: Tenderness Assessment and Plan - Assessment and Plan (Free Text) Plan: Assessment Systemic Inflammatory Response Syndrome, consider sepsis from right lower quadrant phelgmon from possible cecal mass, slowly improving Diphtheroids in blood cx - R/O contamination COPD HTN DM seizure disorder history of nephrolithiasis S/P laparoscopic cholecystectomy S/P cataract surgery obesity with BMI 32 Plan continue Azactam and flagyl and Vancomycin day 7 - should complete 10-14 days of therapy with follow up plans of GI and Surgery after completion of therapy will continue to monitor clinically while the patient is in the hospital Follow up Vanco trough to be done this afternoon, with target trough level between 15-20
[2017-06-11] MEDS ORDERED: Aztreonam 1 Gm in NS 100mL 100 ML IVPB SCH (15:30)
[2017-06-11 18:12] VITALS: BP 165/64; PULSE 54; RESP 18; TEMP 97.2
--- NOTE | 2017-06-12 00:35 | DS ---
HISTORY OF PRESENT ILLNESS: I see her resting comfortably on bed. She has no complaints this morning. No abdominal pain reported any. She tells me she is hungry. She has 97.6 temp, 70 pulse, 148/76 blood pressure, 19 respiratory rate, 98% saturation on room air. She is comfortable. She is moving in bed. She is weak. She is on IV antibiotics, but no complaints. She is on a liquid diet which at this time. I would like to continue the IV antibiotics for the subacute rehab. We can watch her and bring her back if we have to. RECOMMENDATIONS: Subacute rehab by physical therapy. LABORATORY DATA: She has a 143 sodium, potassium 4.3, BUN 6, creatinine 0.6, Total bili is 0.4, AST is 36, ALT is 17, alkaline phosphatase 79, total protein 6.5. White count is 9.2, hemoglobin 10.1, hematocrit 31, platelets of 377. PLAN: I will discuss this with case management about possibly getting to subacute rehab possibly today to finish off the IV antibiotics with physical therapy and will make a decision at a time in the future, if she will go for surgery. IMPRESSION: Diverticulitis, possible fecal mass, chronic obstructive pulmonary disease, hypertension, and diabetes. Dipak Hemphill DO MTDD
--- NOTE | 2017-06-14 10:14 | PQF SEPSIS ---
06/14/17 Dr. Hemphill, Sepsis, r/o sepsis, and consider sepsis documented on progress notes of 06/06 , 721 and consult of 06/05. Was sepsis ruled in, ruled out, undetermined? If sepsis was ruled in, was this present on admission? Thank you. Clarification of your documentation is requested to better reflect the severity of illness and intensity of treatment of your patient. Indicators present [] Temp < 96.8 or > 100.4 [] WBC count > 12,000/mm3 or <000/mm3 or 10% immature neutrophils [] Heart Rate > 90 [] Respiratory Rate > 20 [] Fever or hypothermia [] Chills PER INFECTIOUS DISEASE [] Positive blood cultures [] Hypotension [] Metabolic acidosis (Elevated lactate level, anion gap or reduced blood pH) [] Acute confusion /Altered Mental Status [] Shock [] Other: [] Location in the medical record that reflects the above clinical findings: [] Treatment Provided: [] PHYSICIAN'S RESPONSE Based on your medical judgment of the clinical indicators outlined above, are you treating this patient for a known or suspected: [] Sepsis / Septicemia Please specify organism if known [] [] SIRS (Systemic Inflammatory Response Syndrome) [] Severe Sepsis (Sepsis with Associated Organ Dysfunction) [] Fever of Unknown Origin [] Other, please indicate: [] [] If Unable to Determine, please check the box, sign and date. Present On Admission (POA) Indicator: [] Present at the time of admission [] Not present at the time of admission [] Clinically Undetermined In responding to this query, please exercise your independent professional judgment. The fact that a question is asked does not imply that any particular answer is desired or expected. Thank you for your clarification on this documentation. If you have any questions please call:[ ] * Thank you, [ ] architecture department chair CHARITY
== END 2017-06-11 20:15 | DRG 551 ==
LOC: ED 14:38 → ERH 18:21 → 3RSO 20:38
PROVIDERS: ADMIT Family Medicine; ATTEND Family Medicine
DX: K57.92 Diverticulitis of intestine, part unspecified, without perforation or abscess without bleeding (principal); R65.10 Systemic inflammatory response syndrome (SIRS) of non-infectious origin without acute organ dysfunction; E11.22 Type 2 diabetes mellitus with diabetic chronic kidney disease; F03.90 Unspecified dementia, unspecified severity, without behavioral disturbance, psychotic disturbance, mood disturbance, and anxiety; F05 Delirium due to known physiological condition; E88.81 Metabolic syndrome and other insulin resistance; E11.65 Type 2 diabetes mellitus with hyperglycemia; J44.9 Chronic obstructive pulmonary disease, unspecified; N18.9 Chronic kidney disease, unspecified; I20.8 Other forms of angina pectoris; E07.81 Sick-euthyroid syndrome; B96.89 Other specified bacterial agents as the cause of diseases classified elsewhere; I12.9 Hypertensive chronic kidney disease with stage 1 through stage 4 chronic kidney disease, or unspecified chronic kidney disease; K21.9 Gastro-esophageal reflux disease without esophagitis; K37 Unspecified appendicitis; K59.00 Constipation, unspecified; N20.0 Calculus of kidney; Z68.32 Body mass index [BMI] 32.0-32.9, adult; E66.9 Obesity, unspecified; E78.00 Pure hypercholesterolemia, unspecified; F32.89 Other specified depressive episodes; G40.909 Epilepsy, unspecified, not intractable, without status epilepticus; Z79.4 Long term (current) use of insulin; Z82.49 Family history of ischemic heart disease and other diseases of the circulatory system; Z83.3 Family history of diabetes mellitus; Z87.442 Personal history of urinary calculi; Z87.891 Personal history of nicotine dependence; Z90.49 Acquired absence of other specified parts of digestive tract; D64.9 Anemia, unspecified; M19.90 Unspecified osteoarthritis, unspecified site; Z88.0 Allergy status to penicillin; Z88.2 Allergy status to sulfonamides; Z78.1 Physical restraint status

== ENCOUNTER 2017-11-30 16:42 | Observation (INO) | payer MEDICARE, MEDICAID ==
[2017-11-30 16:50] VITALS: BMI 30.2
--- NOTE | 2017-11-30 17:30 | RAD ---
HISTORY: chest pain COMPARISON: 08/25/2015. FINDINGS: LUNGS: The lungs are well inflated and clear. PLEURA: No significant pleural effusion identified, no pneumothorax apparent. CARDIOVASCULAR: Normal. OSSEOUS STRUCTURES: No significant abnormalities. Status post ACDF in the lower cervical spine. VISUALIZED UPPER ABDOMEN: Normal. OTHER FINDINGS: None. IMPRESSION: No active pulmonary disease.
--- NOTE | 2017-11-30 17:34 | ED PDOC ---
Arrival/HPI - General Chief Complaint: Chest Pain Time Seen by Provider: 11/30/17 16:58 Historian: Patient - History of Present Illness Narrative History of Present Illness (Text): 11/30/17 17:34 A 87 year old female, whose past medical history includes hypertension, COPD, seizure, anemia, kidney stoned and abdominal mass, presents to the emergency department complaining of chest pain. Patient reports her pain began after waking up from a nap today at 16:00. She describes the pain as a squeezing sensation that radiates to her left chest wall. Patient was given Aspirin by EMS on route to emergency room. On evaluation, patient states her pain is still present. She notes generalized weakness the past few days. Son reports patient is acting normal to baseline but notes she does not usually appear this weak. Patient notes mild nausea but denies any fever, chills, vomiting, abdominal pain , shortness of breath, cough, headache, dizziness, lightheadedness or any other complaints. PMD: Dr. Hemphill Time/Duration: Other (16:00 today) Symptom Course: Unchanged Quality: Other ("Squeezing") Context: Home Past Medical History - Provider Review Nursing Documentation Reviewed: Yes - Infectious Disease Hx of Infectious Diseases: None - Tetanus Immunization Tetanus Immunization: Unknown - Reproductive Menopause: Yes - Cardiac Hx Cardiac Disorders: Yes Hx Hypertension: Yes - Pulmonary Hx Chronic Obstructive Pulmonary Disease (COPD): Yes - Neurological Hx Neurological Disorder: Yes Hx Seizures: Yes - HEENT Hx Cataracts: Yes (bilateral sx) - Renal Hx Renal Disorder: Yes Hx Kidney Stones: Yes - Endocrine/Metabolic Hx Diabetes Mellitus Type 2: Yes - Hematological/Oncological Hx Blood Disorders: Yes Hx Anemia: Yes - Integumentary Hx Dermatological Disorder: No - Musculoskeletal/Rheumatological Hx Arthritis: Yes - Gastrointestinal Hx Gastrointestinal Disorders: Yes Hx Gastroesophageal Reflux: Yes - Genitourinary/Gynecological Hx Genitourinary Disorders: No - Psychiatric Hx Psychophysiologic Disorder: Yes Hx Depression: Yes Hx Emotional Abuse: No Hx Physical Abuse: No Hx Substance Use: No - Surgical History Hx Cholecystectomy: Yes - Anesthesia Hx Anesthesia: Yes Hx Anesthesia Reactions: Yes Hx Malignant Hyperthermia: No - Suicidal Assessment Feels Threatened In Home Enviroment: No Family/Social History - Physician Review Nursing Documentation Reviewed: Yes Family/Social History: No Known Family HX Smoking Status: Former Smoker Hx Alcohol Use: No Hx Substance Use: No Hx Substance Use Treatment: No Allergies/Home Meds Allergies/Adverse Reactions: Allergies Penicillins Allergy (Verified 06/04/17 14:42) RASH Sulfa (Sulfonamide Antibiotics) Allergy (Verified 06/04/17 14:42) RASH Home Medications: Home Meds Medication Instructions Recorded Confirmed Pro Air 2 inh INH Q4 PRN 06/15/14 06/04/17 Review of Systems - Physician Review All systems were reviewed & negative as marked: Yes - Review of Systems Constitutional: absent: Fevers, Night Sweats Respiratory: absent: SOB, Cough Cardiovascular: Chest Pain Gastrointestinal: Nausea. absent: Abdominal Pain, Vomiting Neurological: absent: Headache, Dizziness (/lightheadedness) Physical Exam Vital Signs Pulse Resp BP Pulse Ox 11/30/17 18:46 74 20 142/70 96 11/30/17 18:04 94 H 18 159/70 H 99 Appearance: Positive for: Well-Appearing, Non-Toxic, Comfortable Pain Distress: None Mental Status: Positive for: Alert and Oriented X 3 - Systems Exam Head: Present: Atraumatic, Normocephalic Pupils: Present: PERRL Extroacular Muscles: Present: EOMI Conjunctiva: Present: Normal Mouth: Present: Moist Mucous Membranes Neck: Present: Normal Range of Motion Respiratory/Chest: Present: Clear to Auscultation, Good Air Exchange. No: Respiratory Distress, Accessory Muscle Use Cardiovascular: Present: Regular Rate and Rhythm, Normal S1, S2. No: Murmurs Abdomen: Present: Tenderness (Diffuse abdominal tenderness to palpation. When asked if patient had pain, she admitted to mild abdominal discomfort for 1 week. ), Normal Bowel Sounds, Guarding. No: Distention, Peritoneal Signs, Rebound Back: Present: Normal Inspection Upper Extremity: Present: Normal Inspection. No: Cyanosis, Edema Lower Extremity: Present: Normal Inspection. No: Edema Neurological: Present: GCS=15, CN II-XII Intact, Speech Normal Skin: Present: Warm, Dry, Normal Color. No: Rashes Psychiatric: Present: Alert, Oriented x 3, Normal Insight, Normal Concentration Medical Decision Making ED Course and Treatment: 11/30/17 17:34 Impression: A 87 year old female with chest pain. Patient notes nausea and generalized weakness. Differential Diagnosis included but are not limited to: Chest pain rule out ACS , Abdominal pain rule out Mass Plan: -- Abdomen and pelvis CT -- Chest xray -- EKG -- Labs -- Urinalysis -- Nitroglycerin -- Reassess and disposition Progress Notes: EKG shows sinus arrhythmia at 69 BPM. Interpreted by me. Report Date : 11/30/2017 18:25:49 Procedure: Chest xray Dictator : Marti Beaver MD IMPRESSION: No active pulmonary disease. 11/30/17 18:51 Patient's chest pain almost resolved. Aspirin already given by EMS. Nitro paste on wall. Chem and troponin pending. UA pending. CT abd pelvis is pending. Case will be signed out to [facility] who will f/u labs and CT, reevaluate and disposition. - Lab Interpretations Lab Results: 11/30/17 17:40 Lab Results 11/30/17 17:40: PT 11.3, INR 0.99, APTT 27.9 11/30/17 17:40: WBC 8.8, RBC 4.42, Hgb 11.4 L, Hct 37.1, MCV 83.9, MCH 25.8, MCHC 30.7 L, RDW 18.1 H, Plt Count 273, MPV 12.0 H, Gran % 61.1, Lymph % (Auto) 23.2, [place] % (Auto) 9.5 H, Eos % (Auto) 5.7 H, Baso % (Auto) 0.5, Gran # 5.41, Lymph # 2.1, [place] # 0.8 H, Eos # 0.5, Baso # 0.04 I have reviewed the lab results: Yes - RAD Interpretation Radiology Orders: 11/30/17 17:07 CHEST PORTABLE [RAD] Stat 11/30/17 17:09 ABD & PELVIS IV CONTRAST ONLY [CT] Stat - Medication Orders Current Medication Orders: Discontinued Medications Nitroglycerin (Nitro-Bid 2% Oint) 1 ea TOP STAT STA Stop: 11/30/17 17:54 - Scribe Statement The provider has reviewed the documentation as recorded by the Mengibshahbaz Luke Provider Scribe Attestation: All medical record entries made by the Scribe were at my direction and personally dictated by me. I have reviewed the chart and agree that the record accurately reflects my personal performance of the history, physical exam, medical decision making, and the department course for this patient. I have also personally directed, reviewed, and agree with the discharge instructions and disposition. Disposition/Present on Arrival - Present on Arrival Any Indicators Present on Arrival: No History of DVT/PE: No History of Uncontrolled Diabetes: No Urinary Catheter: No History of Decub. Ulcer: No History Surgical Site Infection Following: None - Disposition Have Diagnosis and Disposition been Completed?: No Diagnosis: Abdominal pain, Chest pain Disposition Time: 18:52 Condition: FAIR Discharge Instructions (ExitCare): Chest Pain (ED) Referrals: Padmini Vieira DO [Primary Care Provider] - Follow up with primary Forms: [employer] ([place])
[2017-11-30 17:51] LABS: BASO # 0.04 K/mm3 (0.0-2.0); BASO % 0.5 % (0.0-3.0); EOS # 0.5 (0.0-0.7); EOS % 5.7 % (1.5-5.0); GRAN # 5.41 (1.4-6.5); GRAN % 61.1 % (50.0-68.0); HEMOGLOBIN 11.4 g/dL (12.0-16.0); LYMPH # 2.1 (1.2-3.4); LYMPH % 23.2 % (22.0-35.0); MEAN CELL VOLUME 83.9 fl (80.0-105.0); MEAN CORPUSCULAR HEMOGLOBIN 25.8 pg (25.0-35.0); MEAN CORPUSCULAR HGB CONC 30.7 g/dl (31.0-37.0); MONO # 0.8 (0.1-0.6); MONO % 9.5 % (1.0-6.0); RBC 4.42 10^6/uL (3.5-6.1); RED CELL DISTRIBUTION WIDTH 18.1 % (11.5-14.5); WHITE BLOOD COUNT 8.8 10^3/ul (4.5-11.0)
[2017-11-30] MEDS ORDERED: Nitroglycerin 2% Ointment Foilpak UD TOP STA (17:53)
[2017-11-30 18:35] LABS: INR 0.99 (0.93-1.08); PARTIAL THROMBOPLASTIN TIME 27.9 Seconds (25.1-36.5); PROTHROMBIN TIME 11.3 SECONDS (9.4-12.5)
[2017-11-30 19:02] LABS: URINE BILIRUBIN NEGATIVE (NEGATIVE); URINE BLOOD TRACE-INTACT (NEGATIVE); URINE GLUCOSE (UA) >=1000 mg/dL (NEGATIVE); URINE LEUKOCYTE ESTERASE SMALL Leu/uL (NEGATIVE); URINE NITRATE NEGATIVE (NEGATIVE); URINE PROTEIN 30 mg/dL (<30 mg/dL); URINE UROBILINOGEN 0.2 E.U./dL (<1 E.U./dL)
[2017-11-30 19:06] LABS: URINE APPEARANCE SL CLOUDY (CLEAR); URINE COLOR YELLOW (YELLOW)
[2017-11-30 19:30] LABS: B-TYPE NATRIURETIC PEPTIDE 324 pg/mL (0-450); TROPONIN I 0.02 ng/mL
[2017-11-30 19:33] LABS: ALB/GLOB RATIO 0.8 (1.1-1.8); ALBUMIN 3.6 g/dL (3.0-4.8); ALT/SGPT 22 U/L (7-56); AST/SGOT 21 U/L (14-36); BLOOD UREA NITROGEN 19 mg/dL (7-21); CALCIUM 9.7 mg/dL (8.4-10.5); GFR AFRICAN-AMERICAN > 60; GFR NON-AFRICAN AMERICAN > 60; LIPASE 70 U/L (23-300); MAGNESIUM 1.9 mg/dL (1.7-2.2)
[2017-11-30 19:42] LABS: URINE BACTERIA FEW (NEG)
[2017-11-30] MEDS ORDERED: Iohexol 350 MG/100 ML VIAL ONE (20:23)
--- NOTE | 2017-11-30 21:44 | CARD ---
APPROVED REPORT EKG Measurement Heart [id number] <Conclusion> Sinus rhythm with marked sinus arrhythmia Otherwise normal ECG
--- NOTE | 2017-11-30 22:35 | CT ---
EXAM: CT Abdomen and Pelvis With Intravenous Contrast EXAM DATE/TIME: 11/30/2017 5:09 PM CLINICAL HISTORY: The patient age is 87 years old and is female; Pain; Abdominal pain; Additional info: Abd pain Facility exam id and description: Ct abdpelciv abd pelvis iv contrast only TECHNIQUE: Axial computed tomography images of the abdomen and pelvis with intravenous contrast. All CT scans at this facility use one or more dose reduction techniques, viz.: automated exposure control; ma/kV adjustment per patient size (including targeted exams where dose is matched to indication; i.e. head); or iterative reconstruction technique. Coronal and sagittal reformatted images were created and reviewed. CONTRAST: 96 mL of OMNI 350 administered intravenously. COMPARISON: CT - ABD PELVIS PO CONTRAST ONLY 2017-06-09 10:37 FINDINGS: Lower thorax: Within the right lower lobe on series 2 image 19, there is a new 4 mm nodule. There is wall thickening of the distal esophagus at the gastroesophageal junction. This is likely inflammatory, although additional pathology cannot be excluded. ABDOMEN: Liver: There is hypodense fatty infiltration of the liver. No hepatic mass. Gallbladder and bile ducts: No calcified stones. No ductal dilation. Pancreas: Atrophic changes are noted of the pancreas. Spleen: No splenomegaly. Adrenals: There is mild thickening of the left adrenal gland, without progression. Kidneys and ureters: There is bilateral nephrolithiasis, right side greater than left. Stable right renal pelviectasis is visualized. There is lobulation and parenchymal scarring involving the right kidney. Stomach and bowel: New postoperative changes are identified involving the right hemicolon with resection of the previously visualized cecal mass. There stranding of the fat within the right lower quadrant, which is likely postoperative or inflammatory. Appendix: Not visualized. PELVIS: Bladder: No mass. Reproductive: Unremarkable as visualized. ABDOMEN and PELVIS: Intraperitoneal space: No free air. Bones/joints: Hypertrophic degenerative changes are noted within the spine. There is a posterior herniation again visualized at L2-3 causing moderate narrowing of the thecal sac. There is significant narrowing of the thecal sac at multiple additional lumbar and visualized thoracic levels. Soft tissues: Postoperative changes are identified of the ventral abdominal wall. Vasculature: There is atherosclerotic calcification and mural thrombus involving the abdominal aorta. No abdominal aortic aneurysm. Lymph nodes: Stable nonspecific inguinal lymph nodes are identified. There is no significant intrapelvic or retroperitoneal lymphadenopathy. IMPRESSION: 1. There is hypodense fatty infiltration of the liver. 2. 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 There stranding of the fat within the right lower quadrant, which is likely postoperative or inflammatory. 3. Within the right lower lobe on series 2 image 19, there is a new 4 mm nodule. A nonemergent chest CT is recommended. 4. There is bilateral nephrolithiasis, right side greater than left. Stable right renal pelviectasis is visualized. There is lobulation and parenchymal scarring involving the right kidney. 5. There is wall thickening of the distal esophagus at the gastroesophageal junction. This is likely inflammatory, although additional pathology cannot be excluded. 6. Additional CT findings described above.
--- NOTE | 2017-11-30 22:49 | ED PDOC ---
Physical Exam - Physical Exam Narrative Physical Exam (Text): 11/30/17 19:10 Patient was seen under Dr. East service, pending results of CT scan of Abdomen/Pelvis. Patient was admitted for chest pain. Patient was noted on physical exam to have some abdominal discomfort which appeared to be chronic. CT was ordered to rule any new finding. Patient is resting comfortably at present time. Patient's past medical history in [facility] are noted. Vital Signs Reviewed: Yes Vital Signs Temp Pulse Resp BP Pulse Ox 11/30/17 22:00 18 142/72 100 11/30/17 20:00 97.9 F 76 16 146/80 100 11/30/17 18:46 74 20 142/70 96 11/30/17 18:04 97 F L 94 H 18 159/70 H 99 Temperature: Afebrile Blood Pressure: Normal Pulse: Regular Respiratory Rate: Normal Appearance: Positive for: Well-Appearing, Non-Toxic, Comfortable Pain Distress: None Mental Status: Positive for: Alert and Oriented X 3 - Systems Exam Head: Present: Atraumatic, Normocephalic Pupils: Present: PERRL Extroacular Muscles: Present: EOMI Conjunctiva: Present: Normal Mouth: Present: Moist Mucous Membranes Neck: Present: Normal Range of Motion Respiratory/Chest: Present: Clear to Auscultation, Good Air Exchange. No: Respiratory Distress, Accessory Muscle Use Cardiovascular: Present: Regular Rate and Rhythm, Normal S1, S2. No: Murmurs Abdomen: Present: Normal Bowel Sounds, Other (Chronic abdominal discomfort ). No: Distention, Peritoneal Signs Back: Present: Normal Inspection Upper Extremity: Present: Normal Inspection. No: Cyanosis, Edema Lower Extremity: Present: Normal Inspection. No: Edema Neurological: Present: GCS=15, CN II-XII Intact, Speech Normal Skin: Present: Warm, Dry, Normal Color. No: Rashes Psychiatric: Present: Alert, Oriented x 3, Normal Insight, Normal Concentration Medical Decision Making ED Course and Treatment: 11/30/17 22:15 Impression: Patient seen under Dr. East admitted for chest pain. Pending CT of Abdomen/Pelvis. Differential Diagnosis included but are not limited to: Plan: -- Reassess and disposition Progress Notes: 11/30/17 22:[address] were noted. Results are placed in patient's chart. 01/09/18 22:54 Case was d/w Ileana.CT findings given. - Lab Interpretations Lab Results: 11/30/17 17:40 11/30/17 19:00 Lab Results 11/30/17 19:00: Sodium 138, Potassium 4.1, Chloride 106, Carbon Dioxide 26, Anion Gap 11, BUN 19, Creatinine 0.6 L, Est GFR ( Amer) > 60, Est GFR ( Non-Af Amer) > 60, Random Glucose 315 H* D, Calcium 9.7, Magnesium 1.9, Total Bilirubin 0.5, AST 21, ALT 22, Alkaline Phosphatase 97, Lactate Dehydrogenase 408, Total Creatine Kinase 46, Troponin I 0.02, NT-Pro-B Natriuret Pep 324, Total Protein 7.9, Albumin 3.6, Globulin 4.3, Albumin/Globulin Ratio 0.8 L, Lipase 70 11/30/17 18:46: Urine Color Yellow, Urine Appearance Sl cloudy, Urine pH 6.0, Ur Specific [place] 1.020, Urine Protein 30 H, Urine Glucose (UA) >=1000, Urine Ketones Negative, Urine Blood Trace-intact H, Urine Nitrate Negative, Urine Bilirubin Negative, Urine Urobilinogen 0.2, Ur Leukocyte Esterase Small H, Urine RBC 1 - 3, Urine WBC 2 - 5, Ur Epithelial Cells 1 - 3, Urine Bacteria Few , Urine Other [place] 11/30/17 17:40: PT 11.3, INR 0.99, APTT 27.9 11/30/17 17:40: WBC 8.8, RBC 4.42, Hgb 11.4 L, Hct 37.1, MCV 83.9, MCH 25.8, MCHC 30.7 L, RDW 18.1 H, Plt Count 273, MPV 12.0 H, Gran % 61.1, Lymph % (Auto) 23.2, [place] % (Auto) 9.5 H, Eos % (Auto) 5.7 H, Baso % (Auto) 0.5, Gran # 5.41, Lymph # 2.1, [place] # 0.8 H, Eos # 0.5, Baso # 0.04 - RAD Interpretation Narrative RAD Interpretations (Text): 11/30/17 22:54 CT Abd/Pelvis IMPRESSION: 1. There is hypodense fatty infiltration of the liver. 2. 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 There stranding of the fat within the right lower quadrant, which is likely postoperative or inflammatory. 3. Within the right lower lobe on series 2 image 19, there is a new 4 mm nodule. A nonemergent chest CT is recommended. 4. There is bilateral nephrolithiasis, right side greater than left. Stable right renal pelviectasis is visualized. There is lobulation and parenchymal scarring involving the right kidney. 5. There is wall thickening of the distal esophagus at the gastroesophageal junction. This is likely inflammatory, although additional pathology cannot be excluded. 6. Additional CT findings described above Radiology Orders: 11/30/17 17:07 CHEST PORTABLE [RAD] Stat 11/30/17 17:09 ABD & PELVIS IV CONTRAST ONLY [CT] Stat International Operations Manager: Radiologist - Medication Orders Current Medication Orders: Insulin Human Regular (Humulin R High) 0 units SC ACHS ARTURO PRN Reason: Protocol Last Admin: 11/30/17 22:53 Dose: Not Given Non-Admin Reason: Blood Sugar Parameter MAR Blood Glucose Document 11/30/17 22:53 FDE (Rec: 11/30/17 22:53 FDE [id number]) Blood Glucose Finger Stick Blood Glucose (70-120) 199 Discontinued Medications Nitroglycerin (Nitro-Bid 2% Oint) 1 ea TOP STAT STA Stop: 11/30/17 17:54 Last Admin: 11/30/17 19:00 Dose: 1 ea - Scribe Statement The provider has reviewed the documentation as recorded by the Mengibshahbaz Yap. All medical record entries made by the Mengibshahbaz were at my direction and personally dictated by me. I have reviewed the chart and agree that the record accurately reflects my personal performance of the history, physical exam, medical decision making, and the department course for this patient. I have also personally directed, reviewed, and agree with the discharge instructions and disposition. Disposition/Present on Arrival - Present on Arrival Any Indicators Present on Arrival: No History of DVT/PE: No History of Uncontrolled Diabetes: No Urinary Catheter: No History of Decub. Ulcer: No History Surgical Site Infection Following: None - Disposition Have Diagnosis and Disposition been Completed?: Yes Diagnosis: Abdominal pain, Chest pain Disposition: HOSPITALIZED Disposition Time: 19:10 Condition: FAIR
[2017-11-30] MEDS: Insulin Reg-HIGH-Coverage SC SCH (22:53)
[2017-12-01 03:47] LABS: HEMOGLOBIN 10.6 g/dL (12.0-16.0); MEAN CELL VOLUME 83.1 fl (80.0-105.0); MEAN CORPUSCULAR HEMOGLOBIN 25.9 pg (25.0-35.0); MEAN CORPUSCULAR HGB CONC 31.2 g/dl (31.0-37.0); MEAN PLATELET VOLUME 11.6 fl (7.0-11.0); RBC 4.09 10^6/uL (3.5-6.1); RED CELL DISTRIBUTION WIDTH 18.1 % (11.5-14.5); WHITE BLOOD COUNT 8.5 10^3/ul (4.5-11.0)
[2017-12-01 04:14] LABS: ALB/GLOB RATIO 0.9 (1.1-1.8); ALBUMIN 3.4 g/dL (3.0-4.8); ALT/SGPT 25 U/L (7-56); AST/SGOT 31 U/L (14-36); BLOOD UREA NITROGEN 16 mg/dL (7-21); CALCIUM 9.6 mg/dL (8.4-10.5); GFR AFRICAN-AMERICAN > 60; GFR NON-AFRICAN AMERICAN > 60
[2017-12-01 04:20] LABS: TROPONIN I 0.02 ng/mL
[2017-12-01 06:03] VITALS: O2SAT 99
--- NOTE | 2017-12-01 06:46 | HP ---
HISTORY OF PRESENT ILLNESS: I was called down to the ER to admit Simi Hernandez to the hospital. She has a history of chest pain. It would not go away. She woke up with a squeezing sensation. She was a little bit nauseous and uncomfortable when she had it. She was not feeling well. She came to the emergency room. PAST MEDICAL HISTORY: She has a past medical history of hypertension, COPD, seizures, anemia, kidney stone. She had abdominal mass with surgical resection, hypertension, bilateral cataract surgery, kidney stones, type 2 diabetes, anemia, reflux, arthritis, depression, cholecystectomy, recent colon surgery for colon cancer. FAMILY HISTORY: No known family history. SOCIAL HISTORY: Former smoker. No alcohol. ALLERGIES: ALLERGIC TO PENICILLIN AND SULFA. MEDICATIONS: She is on multiple medications. She is on meclizine, hydralazine, aztreonam in the past, docusate, Geodon, Keppra, Levemir, MiraLax, Namenda, Neurontin, ProAir, Protonix, Seroquel, Singulair, metoprolol, Ultram, vancomycin, and Zofran. REVIEW OF SYSTEMS: No acute vision or hearing changes. No fever or night sweats. No shortness of breath or cough. There is chest pain. No nauseousness. No abdominal pain or vomiting. No headache, dizziness, or lightheadedness. No more anxiety. She is moving all four extremities. PHYSICAL EXAMINATION GENERAL: She is well appearing and nontoxic. She had chest pain. Alert and oriented x3. VITAL SIGNS: She has 98 temperature, 94 pulse, 18 respiratory rate, 159/70 blood pressure, 99% O2 saturation. HEENT: Head is atraumatic, normocephalic. Extraocular muscles are intact. Pupils are equally reactive to light and accommodation. Throat is moist. NECK: Supple. HEART: Regular rate. Normal S1 and S2. LUNGS: Decreased breath sounds but clear to auscultation. ABDOMEN: Soft. Diffuse tenderness. She had surgery there recently. Normal bowel sounds. EXTREMITIES: No edema. NEUROLOGIC: GCS is 15. Cranial nerves II through XII grossly intact. SKIN: Warm and dry. NEUROLOGIC: Alert and oriented x3. LABORATORY DATA: She had blood test done. The urine is clean. INR is 0.99. White count is 8.8, hemoglobin 11.4, hematocrit 37.1, and platelets 273. ASSESSMENT AND PLAN: She is here for chest pain. We are going to check her troponins and call in Cardiology, Dr. roa. We will put her on observation, and she is here for chest pain. Dipak Hemphill DO
[2017-12-01] MEDS: Insulin Reg-HIGH-Coverage SC SCH ×2 (08:46→13:00)
--- NOTE | 2017-12-01 10:23 | CON ---
DATE: 12/01/2017 CARDIOLOGY CONSULTATION HISTORY OF PRESENT ILLNESS: The patient is an 87-year-old woman who presents with mild chest discomfort which is now resolved. She does suffer from anemia and well as hypertension. PAST MEDICAL HISTORY: The patient's past medical history is unclear, but it appear she has a history of diabetes mellitus. MEDICATIONS: Her medication is unavailable. SOCIAL HISTORY: The patient does not smoke. REVIEW OF SYSTEMS: The patient now symptom free and feeling well. PHYSICAL EXAMINATION: VITAL SIGNS: Blood pressure is 146/70 and the heart rate in is the 70s. NECK: Negative JVD. LUNGS: Without rales. CARDIOVASCULAR: Reveals S1 and S2. EXTREMITIES: Without edema. DIAGNOSTIC DATA: EKG is unremarkable. LABORATORY DATA: Reveals troponins that are negative. Negative x2. The glucose is 217 with a hemoglobin of 10.6. IMPRESSION 1. Transient chest pain. 2. No evidence for acute coronary syndrome. 3. Diabetes mellitus. 4. Hypertension. 5. Anemia. PLAN: Given these findings, the patient's cardiac status is stable. However, given her risk factors, we will arrange for an outpatient stress test to rule out CAD. Yahir Ortega MD cc:
[2017-12-01 12:15] VITALS: BP 174/76; PULSE 61; RESP 18; TEMP 98.1
--- NOTE | 2017-12-01 22:31 | DS ---
HISTORY OF PRESENT ILLNESS: I saw her resting comfortably in bed. She slept well last night. No more chest pain. She is in good spirits. She is also asking to go home. PHYSICAL EXAMINATION: VITAL SIGNS: She has 98.6 temperature, 76 pulse, 146/70 blood pressure, 16 respiratory rate, 99% O2 sat on room air. HEENT: Head is atraumatic and normocephalic. HEART: Regular rate. LUNGS: Clear to auscultation. ABDOMEN: Soft. EXTREMITIES: No edema. She does have a history of colon cancer, status post colon resection. She is doing well. She had chest pain and her chest pain has gone. She has been on insulin coverage. LABORATORY DATA: She has a white count of 8.5, hemoglobin of 10.6, hematocrit 34, platelets 251. INR 0.99. She has 139 sodium, potassium 3.7, BUN 16, creatinine 0.6. GFR is greater than 60, sugar is 167, calcium is 9.6, total bilirubin is 0.5, AST is 31, ALT is 25, alkaline phosphatase is 77. Her troponin is 0.02 and 0.02. Total protein is 7.3. ASSESSMENT AND PLAN: Awaiting for Dr. Ortega to see her. I am hoping we will get discharge her to Dr. Ortega, may be scheduled as an outpatient stress test. I think she is doing well. She is status post surgery. Three weeks ago she did [facility] re[facility] and I am hoping we can discharge her home today after Dr. Ortega sees her in followup in the outpatient for chest pain and observation. Dipak Hemphill DO
== END 2017-12-01 15:00 | disposition home or self-care (01) ==
LOC: ED 16:42 → ERH 19:07 → 2RSO 21:59 → ERH 22:12 → 2RSO 22:38
PROVIDERS: ADMIT Family Medicine; ATTEND Family Medicine
DX: R07.9 Chest pain, unspecified (principal); E11.9 Type 2 diabetes mellitus without complications; I10 Essential (primary) hypertension; D64.9 Anemia, unspecified; Z85.038 Personal history of other malignant neoplasm of large intestine; J44.9 Chronic obstructive pulmonary disease, unspecified; N20.0 Calculus of kidney; K76.0 Fatty (change of) liver, not elsewhere classified; Z90.49 Acquired absence of other specified parts of digestive tract; Z87.891 Personal history of nicotine dependence; Z88.0 Allergy status to penicillin; Z88.2 Allergy status to sulfonamides
CPT/HCPCS: 36415; 71045; 74177; 80053; 81001; 82550; 82948; 83615; 83690; 83735; 83880; 84484; 85025; 85027; 85610; 85730; 87086; 93005; 99284; G0378; Q9967

== ENCOUNTER 2018-01-21 08:53 | Inpatient (IN) | payer MEDICARE, MEDICAID ==
[2018-01-21 08:56] VITALS: BMI 26.5
--- NOTE | 2018-01-21 09:30 | ED PDOC ---
Arrival/HPI - General Chief Complaint: Trauma Time Seen by Provider: 01/21/18 09:25 Historian: Patient - History of Present Illness Narrative History of Present Illness (Text): 01/21/18 09:26 A 87 year old female, whose past medical history includes hypertension, dementia , dm, COPD, seizure, anemia, kidney stones, presents to the emergency department complaining of left sided chest pain, left flank pain, left hip pain , left ankle pain, MONTANO, and left sided neck pain x EXHAUSTER. Patient stated while walking on hallway after going to bathroom, she "fainted" . Patient denies sob , n/v, fever, seizures, urinary symptoms, rectal bleeding, or abnormal gait. Time/Duration: Other (see hpi) Context: Home Past Medical History - Provider Review Nursing Documentation Reviewed: Yes - Infectious Disease Hx of Infectious Diseases: None - Tetanus Immunization Tetanus Immunization: Unknown - Reproductive Menopause: Yes - Cardiac Hx Hypertension: Yes - Pulmonary Hx Asthma: Yes - Neurological Hx Neurological Disorder: Yes Hx Dementia: Yes Hx Seizures: Yes - HEENT Hx HEENT Disorder: Yes Hx Cataracts: Yes (bilateral sx) - Renal Hx Renal Disorder: Yes Hx Kidney Stones: Yes - Endocrine/Metabolic Hx Endocrine Disorders: Yes Hx Diabetes Mellitus Type 2: Yes - Hematological/Oncological Hx Blood Disorders: Yes (blood transfusion) Hx Anemia: Yes Hx Cancer: Yes (colon cancer) - Integumentary Hx Dermatological Disorder: No - Musculoskeletal/Rheumatological Hx Falls: Yes - Gastrointestinal Hx Gastrointestinal Disorders: Yes Hx Gastroesophageal Reflux: Yes - Genitourinary/Gynecological Hx Genitourinary Disorders: No - Psychiatric Hx Psychophysiologic Disorder: Yes Hx Depression: Yes Hx Substance Use: No - Surgical History Hx Cholecystectomy: Yes - Anesthesia Hx Anesthesia: Yes Hx Anesthesia Reactions: Yes Hx Malignant Hyperthermia: No - Suicidal Assessment Feels Threatened In Home Enviroment: No Family/Social History - Physician Review Nursing Documentation Reviewed: Yes Family/Social History: Other (noncontributory) Smoking Status: Former Smoker Hx Alcohol Use: No Hx Substance Use: No Hx Substance Use Treatment: No Allergies/Home Meds Allergies/Adverse Reactions: Allergies Penicillins Allergy (Verified 01/21/18 13:42) RASH Sulfa (Sulfonamide Antibiotics) Allergy (Verified 01/21/18 13:42) RASH Home Medications: Home Meds Medication Instructions Recorded Confirmed hydrALAZINE [hydralazine 10 mg PO DAILY 12/10/17 01/21/18 Hydrochloride] Albuterol 0.083% [Albuterol 3 ml IH PRN PRN 01/21/18 01/21/18 Sulfate 3 Ml] Cholecalciferol [Vitamin D] 1,000 unit PO DAILY 01/21/18 01/21/18 Dicyclomine [Dicyclomine HCl] 10 mg PO DAILY 01/21/18 01/21/18 Esomeprazole Magnesium [Nexium] 40 mg PO DAILY 01/21/18 01/21/18 Gabapentin [Neurontin] 300 mg PO TID 01/21/18 01/21/18 Insulin NPH Hum/Reg Insulin Hm 10 ml SC AC 01/21/18 01/21/18 [Humulin 70/30 70 U/ml-30 U/ml 10 ml] Lisinopril [Zestril] 20 mg PO DAILY 01/21/18 01/21/18 Meclizine [Antivert] 12.5 mg PO DAILY 01/21/18 01/21/18 Metoprolol Tartrate [Lopressor] 25 mg PO DAILY 01/21/18 01/21/18 Omeprazole 40 mg PO DAILY 01/21/18 01/21/18 Review of Systems - Review of Systems Constitutional: Normal. absent: Fatigue, Weight Change, Fevers Eyes: Normal. absent: Vision Changes, Photophobia ENT: Normal. absent: Sore Throat Respiratory: Normal. absent: SOB, Cough, Sputum, Wheezing Cardiovascular: Chest Pain, Syncope. absent: Palpitations, Edema, Calf Pain, RAO, Orthopnea Gastrointestinal: Abdominal Pain. absent: Nausea, Vomiting Genitourinary Female: Normal. absent: Dysuria, Frequency, Hematuria, Vaginal Bleeding, Vaginal Discharge Musculoskeletal: Back Pain, Neck Pain, Other (hip pain, and ankle pain) Skin: Normal. absent: Rash Neurological: Normal. absent: Headache, Dizziness, Focal Weakness, Gait Changes , Speech Changes, Facial Droop, Disequilibrium, Seizure Endocrine: Normal Hemo/Lymphatic: Normal Psychiatric: Normal Physical Exam Vital Signs Temp Pulse Resp BP Pulse Ox 01/21/18 13:33 71 18 153/68 H 97 01/21/18 08:54 97.7 F 77 18 156/81 H 95 Temperature: Afebrile Blood Pressure: Normal Pulse: Regular Respiratory Rate: Normal Appearance: Positive for: Well-Appearing, Non-Toxic, Comfortable Pain Distress: None Mental Status: Positive for: other (alert and oriented to place and person only) Finger Stick Blood Glucose: 317 - Systems Exam Head: Present: Atraumatic, Normocephalic Pupils: Present: PERRL Extroacular Muscles: Present: EOMI Conjunctiva: Present: Normal Mouth: Present: Moist Mucous Membranes Neck: Present: Normal Range of Motion Respiratory/Chest: Present: Clear to Auscultation, Good Air Exchange. No: Respiratory Distress, Accessory Muscle Use Cardiovascular: Present: Regular Rate and Rhythm, Normal S1, S2. No: Murmurs Abdomen: Present: Normal Bowel Sounds. No: Tenderness, Distention, Peritoneal Signs Back: Present: Normal Inspection. No: CVA Tenderness Upper Extremity: Present: Normal Inspection, Normal ROM, NORMAL PULSES, Neurovascularly Intact, Capillary Refill < 2s. No: Cyanosis, Edema Lower Extremity: Present: NORMAL PULSES, Neurovascularly Intact, Capillary Refill < 2 s, Other ((+) left hip and left ankle mild tenderness). No: Edema, CALF TENDERNESS, Normal ROM, Swelling, Erythema, Deformity, Temperature Abnormalties Neurological: Present: GCS=15, CN II-XII Intact, Speech Normal, Motor Func Grossly Intact, Normal Sensory Function, Normal Cerebellar Funct, Gait Normal, Memory Normal Skin: Present: Warm, Dry, Normal Color. No: Rashes Psychiatric: Present: Alert, Normal Insight, Normal Concentration Medical Decision Making ED Course and Treatment: I SPOKE WITH DR. FLOREZ REGARDING SYNCOPE AND LEFT HIP PAIN. PATIENT IS UNABLE TO AMBULATE DUE TO PAIN. X-RAYS WER NEGATIVE FOR FRACTURE. HE AGREED WITH PLAN FOR ADMISSION. Re-evaluation Time: 12:50 Reassessment Condition: Re-examined, Improving,but remains with symptoms - Lab Interpretations Microbiology Results: Microbiology Results 01/21/18 12:15 Blood Blood Culture - Preliminary NO GROWTH AFTER 24 HOURS 01/21/18 11:50 Blood Blood Culture - Preliminary NO GROWTH AFTER 24 HOURS Lab Results: 01/21/18 09:50 01/21/18 09:50 Lab Results 01/21/18 12:05: POC Glucose (mg/dL) 257 H 01/21/18 11:50: Urine Color Colorless, Urine Appearance Cloudy, Urine pH 6.0, Ur Specific [place] 1.020, Urine Protein 30 H, Urine Glucose (UA) >=1000, Urine Ketones Negative, Urine Blood Trace-lysed H, Urine Nitrate Negative, Urine Bilirubin Negative, Urine Urobilinogen 0.2, Ur Leukocyte Esterase Negative, Urine RBC 1 - 3, Urine WBC Negative, Ur Epithelial Cells None, Urine Other Uyeast 01/21/18 11:50: PT 11.3, INR 0.98, APTT 26.8 01/21/18 09:50: Sodium 141, Potassium 4.4, Chloride 106, Carbon Dioxide 26, Anion Gap 14, BUN 22 H, Creatinine 0.6 L, Est GFR ( Amer) > 60, Est GFR ( Non-Af Amer) > 60, Random Glucose 323 H* D, Calcium 10.5, Total Bilirubin 0.9, AST 30, ALT 32, Alkaline Phosphatase 123, Lactate Dehydrogenase 607, Total Creatine Kinase 76, Troponin I < 0.01 D, NT-Pro-B Natriuret Pep 135, Total Protein 8.1, Albumin 3.9, Globulin 4.2, Albumin/Globulin Ratio 0.9 L 01/21/18 09:50: WBC 15.0 H D, RBC 5.03, Hgb 13.4 D, Hct 41.2, MCV 81.9, MCH 26.6, MCHC 32.5, RDW 16.3 H, Plt Count 231, MPV 11.6 H, Gran % 68.9 H, Lymph % ( Auto) 14.8 L, [place] % (Auto) 10.8 H, Eos % (Auto) 5.3 H, Baso % (Auto) 0.2, Gran # 10.33 H, Lymph # (Auto) 2.2, [place] # (Auto) 1.6 H, Eos # (Auto) 0.8 H, Baso # ( Auto) 0.03 I have reviewed the lab results: Yes Interpretation: No clinic. lab abnormalty - RAD Interpretation Narrative RAD Interpretations (Text): 01/21/18 11:22 Accession No. 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 There is minimal subsegmental atelectasis in the lower lobes. No focal consolidation, mass or pulmonary nodule. There is minimal biapical pleural parenchymal scarring. There are no endobronchial lesions. MEDIASTINUM: The aorta is not dilated. The heart is normal in size. No pericardial effusion. There is a small sliding hiatal LYMPH NODES: There are calcified mediastinal and hilar lymph nodes likely related to prior granulomatous disease. PLEURA: No pneumothorax. No pleural fluid. BONES: There is diffuse bone demineralization. There is an age indeterminate superior endplate compression deformity in the T5 vertebral body. There are multilevel degenerative changes in the thoracic spine. OTHER FINDINGS: None. CT ABDOMEN AND PELVIS: LIVER: Normal in size. Statement of prior granulomatous disease. GALLBLADDER AND BILE DUCTS: Surgically absent. PANCREAS: Mild diffuse atrophy. No gross lesion or ductal dilatation. SPLEEN: Normal in size. Stigmata of prior granulomatous disease. ADRENALS: No discrete nodule. KIDNEYS AND URETERS: Both kidneys are normal in size. There are small nonobstructing stones in both kidneys, numerous on right. Mild fullness in the right collecting system. Hydronephrosis. VASCULATURE: Advanced atherosclerotic aortoiliac calcifications. No aneurysm. BOWEL: The small bowel loops are normal in caliber. There is large amount of stool in the colon. No bowel dilatation or obstruction. Again seen are postoperative changes in the right hemicolon and right lower quadrant fat. APPENDIX: Surgically absent. PERITONEUM: Unremarkable. No free fluid. No free air. LYMPH NODES: Unremarkable. No enlarged lymph nodes. BLADDER: Well distended and normal in appearance. REPRODUCTIVE: The uterus is normal in size. BONES: No acute fracture. Advanced multilevel degenerative disc disease. OTHER FINDINGS: Again seen are postoperative changes in the midline ventral abdominal wall. IMPRESSION: No acute findings in the chest, abdomen or pelvis. Bilateral nephrolithiasis, more numerous on the right. 01/21/18 11:47 Hip x-rays: no fracture CXR: NAD Ankle x-rays: No Fx 01/21/18 12:44 PROCEDURE: Cervical Spine Radiographs. HISTORY: Pain. COMPARISON: None. FINDINGS: BONES: There is mild levocurvature in the cervical spine. There is straightening of the cervical spine with loss of normal cervical lordosis. There is diffuse bone demineralization. No acute fracture or spondylolisthesis. DISC SPACES: Status post ACDF at C5-6. The remaining disc heights are maintained. SOFT TISSUES: Normal. No prevertebral soft tissue swelling. OTHER FINDINGS: None. IMPRESSION: No acute fracture or spondylolisthesis. Status post ACDF at C5-6. Straightening of the cervical spine may be positional or related to muscle spasm. Radiology Orders: 01/21/18 09:27 HEAD W/O CONTRAST [CT] Stat CHEST PORTABLE [RAD] Stat 01/21/18 09:28 ANKLE LEFT 3 VIEWS ROUTINE [RAD] Stat CERVICAL SPINE >18YR W/OBLIQUE [RAD] Stat Hip Left [HIP MIN 4V W/ PELVIS LT] [RAD] Stat 01/21/18 09:29 CHEST,ABDOMEN, PELVIS W/O CONT [CT] Stat - EKG Interpretation Interpreted by ED Physician: Yes (Sinus rhythm with marked sinus arrythmia @ 72 bpm) Type: 12 lead EKG Comparison: Similar to previous EKG - Medication Orders Current Medication Orders: Acetaminophen (Tylenol 325mg Tab) 650 mg PO Q6H PRN PRN Reason: Pain, moderate (4-7) Last Admin: 01/22/18 01:42 Dose: 650 mg MAR Pain/Vitals Document 01/22/18 01:42 RS (Rec: 01/22/18 01:43 RS [id number]) Location Left, Right or Bilateral Right Sodium Chloride (Sodium Chloride 0.45%) 1,000 mls @ 30 mls/hr IV .Q24H ARTURO Last Admin: 01/21/18 12:11 Dose: 30 mls/hr eMAR Start Stop Document 01/21/18 12:11 SRE (Rec: 01/21/18 12:11 SRE [id number]) Intravenous Solution Start Date 01/21/18 Start Time 12:11 Aztreonam (Azactam 1 Gm) 100 mls @ 100 mls/hr IVPB Q8 ARTURO PRN Reason: Protocol Stop: 01/28/18 22:01 Last Admin: 01/22/18 14:40 Dose: 100 mls/hr eMAR Start Stop Document 01/22/18 14:40 SOUSV (Rec: 01/22/18 14:40 SOUSV [id number]) Intravenous Solution Start Date 01/22/18 Start Time 14:40 End Date 01/22/18 End time 15:40 Total Infusion Time 60 Vancomycin HCl (Vancomycin 1gm) 1 gm in 250 mls @ 167 mls/hr IVPB Q12H ARTURO PRN Reason: Protocol Last Admin: 01/22/18 18:03 Dose: 167 mls/hr eMAR Start Stop Document 01/22/18 18:03 SOUSV (Rec: 01/22/18 18:03 SOUSV [id number]) Intravenous Solution Start Date 01/22/18 Start Time 18:03 End Date 01/22/18 End time 19:33 Total Infusion Time 90 Insulin Human Regular (Humulin R High) 0 units SC ACHS ARTURO PRN Reason: Protocol Last Admin: 01/22/18 17:33 Dose: Not Given Non-Admin Reason: Blood Sugar Parameter [facility] Blood Glucose Document 01/22/18 17:33 SOUSV (Rec: 01/22/18 17:33 SOUSV [id number]) Blood Glucose Finger Stick Blood Glucose (70-120) 128 Metoprolol Tartrate (Lopressor) 25 mg PO DAILY [facility] Last Admin: 01/22/18 09:49 Dose: 25 mg MAR Pulse and Blood Pressure Document 01/22/18 09:49 SOUSV (Rec: 01/22/18 09:49 SOUSV [id number]) Pulse Pulse Rate (60-90) 76 Blood Pressure Blood Pressure (100/60-150/90) 166/79 Morphine Sulfate (Morphine) 1 mg IVP Q3 PRN PRN Reason: Pain, severe (8-10) Last Admin: 01/22/18 09:48 Dose: 1 mg MAR Pain Assessment Document 01/22/18 09:48 SOUSV (Rec: 01/22/18 09:49 SOUSV [id number]) Pain Reassessment Is this a pain reassessment? No Presence of Pain Presence of Pain Yes Pain Scale Used Pain Scale Used Numeric Location Left, Right or Bilateral Left Pain Location Body Site Leg Description Description Constant Intensity of Pain at present 9 Pain Behavior Moaning Irritability Aggravating Factors Changing Position Exercise/Activity Alleviating Factors/Management Medication Techniques Alleviating Factors Medication IVP Administration Document 01/22/18 09:48 SOU (Rec: 01/22/18 09:49 [id number] Charges for Administration # of IVP Administrations 1 Re-Assess: [facility] Pain Assessment Document 01/22/18 10:48 SOUS (Rec: 01/22/18 11:31 [id number] Pain Reassessment Is this a pain reassessment? Yes Sleep Is patient sleeping during reassessment? Yes Pantoprazole Sodium (Protonix Ec Tab) 40 mg PO DAILY [facility] Last Admin: 01/22/18 09:49 Dose: 40 mg Discontinued Medications Sodium Chloride (Sodium Chloride 0.9%) 500 mls @ 999 mls/hr IV .Q31M STA Stop: 01/21/18 10:48 Last Admin: 01/21/18 12:01 Dose: 999 mls/hr eMAR Start Stop Document 01/21/18 12:01 SRE (Rec: 01/21/18 12:02 SRE [id number]) Intravenous Solution Start Date 01/21/18 Start Time 11:00 End Date 01/21/18 End time 11:30 Total Infusion Time 30 Morphine Sulfate (Morphine) 2 mg IVP STAT STA Stop: 01/21/18 09:57 Last Admin: 01/21/18 10:14 Dose: 2 mg [facility] Pain Assessment Document 01/21/18 10:14 SRE (Rec: 01/21/18 10:14 SRE [id number]) Pain Reassessment Is this a pain reassessment? Yes Location Left, Right or Bilateral Right Pain Location Body Site Generalized Description Description Intermittent IVP Administration Document 01/21/18 10:14 SRE (Rec: 01/21/18 10:14 SRE [id number]) Charges for Administration # of IVP Administrations 1 Re-Assess: [facility] Pain Assessment Document 01/21/18 11:14 SRE (Rec: 01/21/18 12:02 SRE [id number]) Pain Reassessment Is this a pain reassessment? Yes Sleep Is patient sleeping during reassessment? No Presence of Pain Presence of Pain Yes Ondansetron HCl (Zofran Inj) 4 mg IVP STAT STA Stop: 01/21/18 09:57 Last Admin: 01/21/18 10:14 Dose: 4 mg IVP Administration Document 01/21/18 10:14 SRE (Rec: 01/21/18 10:15 SRE [id number]) Charges for Administration # of IVP Administrations 1 Pneumococcal Polyvalent Vaccine (Pneumovax 23 Vaccine) 0.5 ml IM .ONCE ONE Stop: 01/21/18 19:06 Sodium Polystyrene Sulfonate (Kayexalate Susp) 15 gm PO ONCE ONE Stop: 01/22/18 13:07 Last Admin: 01/22/18 13:30 Dose: 15 gm Disposition/Present on Arrival - Present on Arrival Any Indicators Present on Arrival: No History of DVT/PE: No History of Uncontrolled Diabetes: No Urinary Catheter: No History of Decub. Ulcer: No History Surgical Site Infection Following: None - Disposition Have Diagnosis and Disposition been Completed?: Yes Diagnosis: Syncope, Hip pain Disposition: HOSPITALIZED Disposition Time: 12:54 Patient Plan: Admission Patient Problems: Current Active Problems Problem Status Onset Hip pain Acute Syncope Acute Condition: STABLE
[2018-01-21] MEDS ORDERED: Morphine 2 mg/ml ISec IVP STA (09:56)
[2018-01-21 10:00] LABS: BASO # 0.03 K/mm3 (0.0-2.0); BASO % 0.2 % (0.0-3.0); EOS # 0.8 (0.0-0.7); EOS % 5.3 % (1.5-5.0); GRAN # 10.33 (1.4-6.5); GRAN % 68.9 % (50.0-68.0); HEMOGLOBIN 13.4 g/dL (12.0-16.0); LYMPH # 2.2 (1.2-3.4); LYMPH % 14.8 % (22.0-35.0); MEAN CELL VOLUME 81.9 fl (80.0-105.0); MEAN CORPUSCULAR HEMOGLOBIN 26.6 pg (25.0-35.0); MEAN CORPUSCULAR HGB CONC 32.5 g/dl (31.0-37.0); MEAN PLATELET VOLUME 11.6 fl (7.0-11.0); MONO # 1.6 (0.1-0.6); MONO % 10.8 % (1.0-6.0); RBC 5.03 10^6/uL (3.5-6.1); RED CELL DISTRIBUTION WIDTH 16.3 % (11.5-14.5)
[2018-01-21 10:14] LABS: ALB/GLOB RATIO 0.9 (1.1-1.8); ALBUMIN 3.9 g/dL (3.0-4.8); ALT/SGPT 32 U/L (7-56); AST/SGOT 30 U/L (14-36); BLOOD UREA NITROGEN 22 mg/dL (7-21); CALCIUM 10.5 mg/dL (8.4-10.5); GFR AFRICAN-AMERICAN > 60; GFR NON-AFRICAN AMERICAN > 60
[2018-01-21] MEDS ORDERED: Sodium Chloride 0.9% 500 ML IV STA (10:18)
[2018-01-21 10:22] LABS: B-TYPE NATRIURETIC PEPTIDE 135 pg/mL (0-450); TROPONIN I < 0.01 ng/mL
--- NOTE | 2018-01-21 10:55 | CT ---
PROCEDURE: CT HEAD WITHOUT CONTRAST. HISTORY: Headache s/p fall COMPARISON: None available. TECHNIQUE: Axial computed tomography images were obtained through the head/brain without intravenous contrast. Radiation dose: Total exam DLP = 1013.05 mGy-cm. This CT exam was performed using one or more of the following dose reduction techniques: Automated exposure control, adjustment of the mA and/or kV according to patient size, and/or use of iterative reconstruction technique. FINDINGS: HEMORRHAGE: No intracranial hemorrhage. BRAIN: Is an old lacunar infarction in the left anterior limb of internal capsule. There are mild chronic microangiopathic changes. There is no mass, mass effect or abnormal extra-axial fluid collection. There are coarse atherosclerotic calcifications in the cavernous carotid arteries. VENTRICLES: There is mild age-related global parenchymal volume loss and proportionate enlargement of the ventricles and cortical sulci. . CALVARIUM: There is no calvarial fracture or extracranial soft tissue swelling. PARANASAL SINUSES: There is moderate polypoid mucosal thickening in the maxillary sinuses and retention cyst/polyp in the right maxillary sinus. The remaining included paranasal sinuses are predominantly clear. MASTOID AIR CELLS: Predominantly clear. OTHER FINDINGS: None. IMPRESSION: No acute intracranial abnormality. 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 Mild chronic microangiopathic changes and mild age-related global parenchymal volume loss.
--- NOTE | 2018-01-21 11:14 | CT ---
PROCEDURE: CT Chest, Abdomen and Pelvis without intravenous contrast HISTORY: left sided rib pain, left flank pain s/p fall/tra COMPARISON: CT abdomen and pelvis from 11/30/2017 TECHNIQUE: CT scan of the chest, abdomen and pelvis was performed without administration of intravenous contrast. Oral contrast was not administered. Coronal and sagittal reformatted images were obtained. Radiation dose: Total exam DLP = 1070.69 mGy-cm. This CT exam was performed using one or more of the following dose reduction techniques: Automated exposure control, adjustment of the mA and/or kV according to patient size, and/or use of iterative reconstruction technique. FINDINGS: CT CHEST WITHOUT CONTRAST: LUNGS: The lungs are well inflated. There is minimal subsegmental atelectasis in the lower lobes. No focal consolidation, mass or pulmonary nodule. There is minimal biapical pleural parenchymal scarring. There are no endobronchial lesions. MEDIASTINUM: The aorta is not dilated. The heart is normal in size. No pericardial effusion. There is a small sliding hiatal LYMPH NODES: There are calcified mediastinal and hilar lymph nodes likely related to prior granulomatous disease. PLEURA: No pneumothorax. No pleural fluid. BONES: There is diffuse bone demineralization. There is an age indeterminate superior endplate compression deformity in the T5 vertebral body. There are multilevel degenerative changes in the thoracic spine. OTHER FINDINGS: None. CT ABDOMEN AND PELVIS: LIVER: Normal in size. Statement of prior granulomatous disease. GALLBLADDER AND BILE DUCTS: Surgically absent. PANCREAS: Mild diffuse atrophy. No gross lesion or ductal dilatation. SPLEEN: Normal in size. Stigmata of prior granulomatous disease. ADRENALS: No discrete nodule. KIDNEYS AND URETERS: Both kidneys are normal in size. There are small nonobstructing stones in both kidneys, numerous on right. Mild fullness in the right collecting system. Hydronephrosis. VASCULATURE: Advanced atherosclerotic aortoiliac calcifications. No aneurysm. BOWEL: The small bowel loops are normal in caliber. There is large amount of stool in the colon. No bowel dilatation or obstruction. Again seen are postoperative changes in the right hemicolon and right lower quadrant fat. APPENDIX: Surgically absent. PERITONEUM: Unremarkable. No free fluid. No free air. LYMPH NODES: Unremarkable. No enlarged lymph nodes. BLADDER: Well distended and normal in appearance. REPRODUCTIVE: The uterus is normal in size. BONES: No acute fracture. Advanced multilevel degenerative disc disease. OTHER FINDINGS: Again seen are postoperative changes in the midline ventral abdominal wall. IMPRESSION: No acute findings in the chest, abdomen or pelvis. Bilateral nephrolithiasis, more numerous on the right.
[2018-01-21 11:58] LABS: URINE BILIRUBIN NEGATIVE (NEGATIVE); URINE BLOOD TRACE-LYSED (NEGATIVE); URINE GLUCOSE (UA) >=1000 mg/dL (NEGATIVE); URINE LEUKOCYTE ESTERASE NEGATIVE Leu/uL (NEGATIVE); URINE NITRATE NEGATIVE (NEGATIVE); URINE PROTEIN 30 mg/dL (<30 mg/dL); URINE UROBILINOGEN 0.2 E.U./dL (<1 E.U./dL)
[2018-01-21 11:59] LABS: URINE APPEARANCE CLOUDY (CLEAR); URINE COLOR COLORLESS (YELLOW)
[2018-01-21] MEDS ORDERED: Insulin Regular 1 UNITS/0.01 ML ML ONE (12:07)
[2018-01-21 12:09] LABS: URINE WBC NEGATIVE /hpf (0-6)
[2018-01-21] MEDS: Insulin Reg-HIGH-Coverage SC SCH ×4 (12:09→21:51)
[2018-01-21] MEDS: Insulin Human NPH/Reg 70/30 Vial(3 ml) SC SCH ×2 (12:10→17:36)
[2018-01-21] MEDS: Sodium Chloride 0.45% 1,000 ML IV SCH (12:11)
--- NOTE | 2018-01-21 12:12 | RAD ---
PROCEDURE: Left Hip X-ray Radiographs. HISTORY: pain s/p fall COMPARISON: None. FINDINGS: BONES: The pelvic ring is intact. There is no acute displaced fracture or bone destruction. 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 There is mild osteitis pubis P SOFT TISSUES: Normal. OTHER FINDINGS: None. IMPRESSION: No acute displaced fracture or dislocation. Please note occult fractures cannot be excluded on plain radiographs. If there is a persistent clinical concern, an MRI of the hip may be performed for further evaluation.
--- NOTE | 2018-01-21 12:15 | RAD ---
PROCEDURE: Left Ankle Radiographs. HISTORY: Pain COMPARISON: None FINDINGS: BONES: There is no acute displaced fracture or bone destruction. Bone alignment is normal. There is diffuse bone demineralization. JOINTS: Normal. No osteoarthritis. Ankle mortise maintained. Talar dome intact SOFT TISSUES: Mild lateral soft tissue swelling. OTHER FINDINGS: None. IMPRESSION: No acute displaced fracture or dislocation. Mild lateral soft tissue swelling.
--- NOTE | 2018-01-21 12:16 | RAD ---
HISTORY: left sided pain s/p fall COMPARISON: 11/30/2017. FINDINGS: LUNGS: The lungs are well inflated and clear. PLEURA: No significant pleural effusion identified, no pneumothorax apparent. CARDIOVASCULAR: Normal. OSSEOUS STRUCTURES: Within normal limits for the patient's age. VISUALIZED UPPER ABDOMEN: Normal. OTHER FINDINGS: None. IMPRESSION: No active pulmonary disease.
[2018-01-21 12:20] LABS: INR 0.98 (0.93-1.08); PARTIAL THROMBOPLASTIN TIME 26.8 Seconds (25.1-36.5); PROTHROMBIN TIME 11.3 SECONDS (9.4-12.5)
--- NOTE | 2018-01-21 12:21 | RAD ---
PROCEDURE: Cervical Spine Radiographs. HISTORY: Pain. COMPARISON: None. FINDINGS: BONES: There is mild levocurvature in the cervical spine. There is straightening of the cervical spine with loss of normal cervical lordosis. There is diffuse bone demineralization. No acute fracture or spondylolisthesis. DISC SPACES: Status post ACDF at C5-6. The remaining disc heights are maintained. SOFT TISSUES: Normal. No prevertebral soft tissue swelling. OTHER FINDINGS: None. IMPRESSION: No acute fracture or spondylolisthesis. Status post ACDF at C5-6. Straightening of the cervical spine may be positional or related to muscle spasm.
--- NOTE | 2018-01-21 15:31 | CARD ---
APPROVED REPORT EKG Measurement Heart [id number] ID [id number] <Conclusion> Sinus rhythm with marked sinus arrhythmia Otherwise normal ECG
[2018-01-21] MEDS ORDERED: Pneumococcal 23-Valent Vaccine IM ONE (19:05)
[2018-01-21] MEDS ORDERED: Influenza Vaccine 60 mcg/0.5 mL SYR (4YR UP) IM ONE (19:05)
--- NOTE | 2018-01-21 20:23 | HP ---
HISTORY OF PRESENT ILLNESS: This is an 87-year-old female who apparently had a syncopal episode, where she fainted after going to the bathroom. I met her when she had colon cancer surgery and resection and admittance to subacute rehab. She has a history of dementia, diabetes, COPD, seizures, anemia, kidney stones. She has a history of left-sided chest pain before. Now her left hip, left flank, left ankle are hurting her, with a headache from the fall; left-sided neck pain. So she was in the hospital in the emergency room, not feeling well. She has hypertension, asthma, dementia, seizures, bilateral cataract surgeries, kidney stones, diabetes, had blood transfusions in the past been being anemic, colon cancer with surgery, colon resection. She has had falls, gastroesophageal reflux, depression, cholecystectomy. SOCIAL HISTORY: Former smoker. No alcohol. No drugs. ALLERGIES: TO PENICILLIN AND SULFA. MEDICATIONS: She is on hydralazine, albuterol, vitamin D, dicyclomine, Nexium, Neurontin, insulin coverage for the diabetes, Zestril, Antivert, Lopressor, omeprazole. REVIEW OF SYSTEMS: She is uncomfortable. She has pain in the left hip and left leg, headache. No acute vision or hearing changes. 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 She has little bit of chest pain but no palpitations, with syncope. No shortness of breath or cough. There is some abdominal pain. No nausea, vomiting or constipation or diarrhea. No problems urinating. She has back pain, neck pain, left hip pain, left ankle pain. Skin for the most part is okay. No rashes or ulcers appreciated. No headache or dizziness at this time. No sweating. No tremors. No anxiety. PHYSICAL EXAMINATION: VITAL SIGNS: She has 97.7 temperature, 77 pulse, 156/81 blood pressure, 18 respiratory rate, and 95% O2 sat on room air. GENERAL: She is currently in a neck brace. She is uncomfortable, little bit of pain, but alert and aware, and oriented at this time. Blood sugar was 317, on distress. HEENT: Head is atraumatic, normocephalic. Extraocular muscles are intact. Pupils are equally reactive to light. Mucous membranes are moist. NECK: Supple. HEART: Regular rate. Normal S1 and S2. LUNGS: Decreased breath sounds, clear to auscultation, poor inspiration. ABDOMEN: Soft, nontender. Positive bowel sounds. No CVA tenderness, no guarding, no rebound. EXTREMITIES: No edema. It is painful to the left femur and pelvis. NEUROLOGIC: GCS is 15. Cranial nerves II through XII grossly intact. Normal speech. SKIN: I could tell, is intact; no rashes or ulcers. NEUROLOGICAL: Alert and oriented. LYMPHATICS: Thyroid midline. No palpable appreciable lymphadenopathy. LABORATORY DATA: There were a lot of tests that were ordered. She has a 15 white count, 15.4 hemoglobin, 41.2 hematocrit, with a 231 platelets. Sodium 141, potassium 4.4, BUN 22, creatinine 0.6, blood sugar was 323, calcium 10.5, total bilirubin is 0.9. AST is 30, ALT is 32, alkaline phosphatase 123. Troponin I is less than 0.01. BNP is 135, total protein is 8.1. ASSESSMENT AND PLAN: She is going to have a CAT scan of the chest, abdomen and pelvis which is pending; also x-rays of the left hip and leg. She is going to need probable antibiotics, neurologic evaluation, infectious disease evaluation, cardiology evaluation, and we will watch her very closely. Check her labs tomorrow. She is here for syncope, pain in the left leg, leukocytosis, waiting for the rest for labs and everything to come back. Dipak Hemphill DO
[2018-01-21] MEDS: Vancomycin 1gm in NS 250ml 1 GM/250 ML BAG IVPB SCH (20:50)
[2018-01-21] MEDS: Morphine 2 mg/ml ISec IVP PRN (20:51)
[2018-01-21] MEDS ORDERED: Morphine 2 mg/ml ISec IVP SCH (21:00)
[2018-01-21] MEDS: Aztreonam 1 Gm in NS 100mL 100 ML IVPB SCH (22:53)
[2018-01-22] MEDS: Morphine 2 mg/ml ISec IVP PRN ×4 (00:25→22:14)
[2018-01-22] MEDS: Aztreonam 1 Gm in NS 100mL 100 ML IVPB SCH ×3 (05:21→22:13)
[2018-01-22 07:16] LABS: MEAN CELL VOLUME 82.9 fl (80.0-105.0); MEAN CORPUSCULAR HEMOGLOBIN 26.3 pg (25.0-35.0); MEAN CORPUSCULAR HGB CONC 31.7 g/dl (31.0-37.0); MEAN PLATELET VOLUME 11.5 fl (7.0-11.0); RBC 4.56 10^6/uL (3.5-6.1); RED CELL DISTRIBUTION WIDTH 16.6 % (11.5-14.5); WHITE BLOOD COUNT 14.8 10^3/ul (4.5-11.0)
[2018-01-22 07:30] LABS: ALB/GLOB RATIO 0.9 (1.1-1.8); ALBUMIN 3.5 g/dL (3.0-4.8); ALT/SGPT 44 U/L (7-56); AST/SGOT 56 U/L (14-36); BLOOD UREA NITROGEN 23 mg/dL (7-21); CALCIUM 9.8 mg/dL (8.4-10.5); GFR AFRICAN-AMERICAN > 60; GFR NON-AFRICAN AMERICAN > 60
[2018-01-22] MEDS: Insulin Human NPH/Reg 70/30 Vial(3 ml) SC SCH ×3 (08:51→17:32)
[2018-01-22] MEDS: Insulin Reg-HIGH-Coverage SC SCH ×4 (08:51→22:46)
[2018-01-22] MEDS: Vancomycin 1gm in NS 250ml 1 GM/250 ML BAG IVPB SCH ×2 (08:53→18:03)
[2018-01-22] MEDS: Pantoprazole 40 mg EC Tab PO SCH (09:49)
[2018-01-22] MEDS ORDERED: Sod Polystyrene Sulf 15 gm/60 ml Susp PO ONE (13:06)
--- NOTE | 2018-01-22 16:03 | CP.PCM.CON ---
History of Present Illness - History of Present Illness History of Present Illness: 87 year old female with PMH of COPD, HTN, DM, seizure disorder, history of nephrolithiasis, S/P laparoscopic cholecystectomy, S/P cataract surgery was [place] [facility] [place] of probable syncopal episode where the patient apparently fainted in the bathroom. She apparently bumped her head but currently it is not hurting. She denies fever or chills, no nausea or vomiting, no chest pain, no SOB, no sore throat, no cough or colds, her left leg is hurting a little, no abdominal pain, no chest pain, no diarrhea, no dysuria. In the ED, she was noted to have leukocytosis and Infectious Diseases consult is requested to further evaluate and manage. Review of Systems - Review of Systems All systems: reviewed and no additional remarkable complaints except (as per HPI ) Past Patient History - Infectious Disease Hx of Infectious Diseases: None - Tetanus Immunizations Tetanus Immunization: Unknown - Past Social History Smoking Status: Former Smoker - CARDIAC Hx Hypertension: Yes - PULMONARY Hx Asthma: Yes - NEUROLOGICAL Hx Neurological Disorder: Yes Hx Dementia: Yes Hx Seizures: Yes - HEENT Hx HEENT Problems: Yes Hx Cataracts: Yes (bilateral sx) - RENAL Hx Chronic Kidney Disease: Yes Hx Kidney Stones: Yes - ENDOCRINE/METABOLIC Hx Endocrine Disorders: Yes Hx Diabetes Mellitus Type 2: Yes - HEMATOLOGICAL/ONCOLOGICAL Hx Blood Disorders: Yes (blood transfusion) Hx Anemia: Yes Hx Cancer: Yes (colon cancer) - INTEGUMENTARY Hx Dermatological Problems: No - MUSCULOSKELETAL/RHEUMATOLOGICAL Hx Falls: Yes - GASTROINTESTINAL Hx Gastrointestinal Disorders: Yes Hx Gastroesophageal Reflux: Yes - GENITOURINARY/GYNECOLOGICAL Hx Genitourinary Disorders: No - PSYCHIATRIC Hx Psychophysiologic Disorder: Yes Hx Depression: Yes Hx Substance Use: No - SURGICAL HISTORY Hx Cholecystectomy: Yes - ANESTHESIA Hx Anesthesia: Yes Hx Anesthesia Reactions: Yes Hx Malignant Hyperthermia: No Meds Allergies/Adverse Reactions: Allergies Allergy/AdvReac Type Severity Reaction Status Date / Time Penicillins Allergy RASH Verified 01/21/18 13:42 Sulfa (Sulfonamide Allergy RASH Verified 01/21/18 13:42 Antibiotics) - Medications Medications: Current Medications Sodium Chloride (Sodium Chloride 0.45%) 1,000 mls @ 30 mls/hr IV .Q24H [facility] Last Admin: 01/21/18 12:11 Dose: 30 mls/hr Insulin Human Regular (Humulin R High) 0 units SC ACHS [facility] PRN Reason: Protocol Last Admin: 01/21/18 17:36 Dose: Not Given Metoprolol Tartrate (Lopressor) 25 mg PO DAILY [facility] Morphine Sulfate (Morphine) 1 mg IVP Q3 [facility] Pantoprazole Sodium (Protonix Ec Tab) 40 mg PO DAILY [facility] Physical Exam - Constitutional Appears: Non-toxic, Chronically Ill - Head Exam Head Exam: NORMAL INSPECTION - ENT Exam ENT Exam: Mucous Membranes Moist - Neck Exam Neck exam: Negative for: Meningismus - Respiratory Exam Respiratory Exam: Decreased Breath Sounds - Cardiovascular Exam Cardiovascular Exam: +S1, +S2 - GI/Abdominal Exam GI & Abdominal Exam: Soft. absent: Tenderness Results - Vital Signs Recent Vital Signs: Last Vital Signs Temp 98.6 F 01/21/18 16:00 Pulse 69 01/21/18 18:00 Resp 20 01/21/18 16:00 BP 140/52 L 01/21/18 16:00 Pulse Ox 96 01/21/18 16:00 - Labs Result Diagrams: 01/22/18 06:30 01/22/18 06:30 Labs: Laboratory Results - last 24 hr 01/21/18 15:43 POC Glucose (mg/dL) 126 H Assessment & Plan - Assessment and Plan (Free Text) Plan: Assessment systemic inflammatory response syndrome, R/O sepsis source to be determined history of sepsis from right lower quadrant phelgmon from possible cecal mass Diphtheroids in blood cx - R/O contamination COPD HTN DM seizure disorder history of nephrolithiasis S/P laparoscopic cholecystectomy S/P cataract surgery obesity with BMI 32 Plan started Vancomycin and Azactam pending blood cx, urine cx, PCT, CXR will monitor clinically
[2018-01-23] MEDS: Aztreonam 1 Gm in NS 100mL 100 ML IVPB SCH ×3 (05:40→22:07)
[2018-01-23] MEDS: Vancomycin 1gm in NS 250ml 1 GM/250 ML BAG IVPB SCH ×2 (06:33→18:01)
[2018-01-23 07:33] LABS: MEAN CELL VOLUME 82.6 fl (80.0-105.0); MEAN CORPUSCULAR HEMOGLOBIN 26.4 pg (25.0-35.0); MEAN CORPUSCULAR HGB CONC 31.9 g/dl (31.0-37.0); MEAN PLATELET VOLUME 11.5 fl (7.0-11.0); RBC 4.55 10^6/uL (3.5-6.1); RED CELL DISTRIBUTION WIDTH 16.5 % (11.5-14.5); WHITE BLOOD COUNT 12.2 10^3/ul (4.5-11.0)
[2018-01-23 07:56] LABS: ALB/GLOB RATIO 0.9 (1.1-1.8); ALBUMIN 3.5 g/dL (3.0-4.8); ALT/SGPT 47 U/L (7-56); AST/SGOT 51 U/L (14-36); BLOOD UREA NITROGEN 16 mg/dL (7-21); CALCIUM 9.8 mg/dL (8.4-10.5); GFR AFRICAN-AMERICAN > 60; GFR NON-AFRICAN AMERICAN > 60
[2018-01-23] MEDS: Insulin Reg-HIGH-Coverage SC SCH ×4 (08:46→22:07)
[2018-01-23] MEDS: Insulin Human NPH/Reg 70/30 Vial(3 ml) SC SCH ×3 (08:47→17:45)
--- NOTE | 2018-01-23 10:16 | RAD ---
PROCEDURE: Left Ankle Radiographs. HISTORY: s/p fall, L ankle pain COMPARISON: None FINDINGS: BONES: Normal. No fracture. JOINTS: Normal. No osteoarthritis. Ankle mortise maintained. Talar dome intact SOFT TISSUES: Normal. OTHER FINDINGS: None. IMPRESSION: Normal left ankle radiographs.
--- NOTE | 2018-01-23 10:17 | RAD ---
PROCEDURE: Left Foot Radiographs. HISTORY: s/p fall, L foot pain COMPARISON: None. FINDINGS: BONES: Normal. No fracture. JOINTS: Normal. SOFT TISSUES: Normal. OTHER FINDINGS: None. IMPRESSION: Normal left foot radiographs.
[2018-01-23] MEDS: Pantoprazole 40 mg EC Tab PO SCH (10:58)
--- NOTE | 2018-01-23 11:27 | PN ---
DATE: SUBJECTIVE: I saw her comfortably in her bed this morning. She slept fairly well. She has a bunch of issues. She is still dizzy. The left foot is excruciatingly painful. She could not get out of bed to chair while to put any weight on it and she is a little constipated. I gave her Dulcolax suppository. Consulted Neuro. Consulted Orthopedics for the left foot. We did the x-rays of the left foot and left ankle. I gave her meclizine for her dizziness. Hopefully, some of this will help her. PHYSICAL EXAMINATION: VITAL SIGNS: She has a 98.4 temp, 83 pulse, 163/70 blood pressure, 20 respiratory rate, 96% O2 sat on room air. HEENT: Head is atraumatic, normocephalic. HEART: Regular rate. LUNGS: Decreased breath sounds, but clear. ABDOMEN: Soft. EXTREMITIES: No edema, but the left foot is very tender to gentle palpation. LABORATORY DATA: She has a 143 sodium, potassium is 4, BUN is 16, creatinine 0.6, GFR is greater than 60. Sugars are 92, then 176, then 165. Calcium is 9.8. The blood sugars are better. They are all in the 200s and higher, so I increased the insulin to making a difference. Total bili is 1.5, AST is 61, ALT is 47, alk phos is 100, total protein 7.4. She has a 12.2 white count, it is coming down, it was 15, then it was 14.8, now it is 12.2. Continue the antibiotics. Hemoglobin 12, hematocrit 37.6, platelets of 215. MEDICATIONS: She is on Antivert, Azactam, Dulcolax, insulin, Lopressor, morphine, Protonix, IV fluids, Tylenol and vancomycin IV. ASSESSMENT AND PLAN: She is being seen by Infectious Disease. She has systemic inflammatory response syndrome, chronic obstructive pulmonary disease, hypertension, diabetes, seizures history. She has history of colon cancer with surgery. We will see what is going on with this left leg. We will check her labs tomorrow. Dipak Hemphill DO [facility] # [id number]
--- NOTE | 2018-01-23 13:03 | MRI ---
PROCEDURE: MRI of the left ankle without contrast HISTORY: r/o stress fx COMPARISON: TECHNIQUE: MRI of the left ankle was performed in multiple planes using multiple pulse sequences. FINDINGS: There is no evidence of marrow edema to suggest stress fracture. There is thickening of the Achilles tendon consistent with chronic tendinopathy. There is a moderate size calcaneal spur on the plantar surface. There is some thickening of the plantar fascia adjacent to the spur. There is a small ankle joint effusion IMPRESSION: No acute findings
[2018-01-23] MEDS: POLYETHYLENE GLYCOL 3350 17 GM/Dose PACKET PO SCH (13:30)
[2018-01-23] MEDS: Sodium Chloride 0.45% 1,000 ML IV SCH (14:09)
--- NOTE | 2018-01-23 22:36 | CON ---
DATE: LOCATION: In room 362, bed 1. HISTORY OF PRESENT ILLNESS: Patient was admitted approximately 01/21/2018 through the emergency room with multiple regions of pain, mainly the left ankle, left leg, and left hip. It has come down to the fact that most of her pain is in the left ankle. There is no evidence of left hip fracture, left knee or leg fracture, but she does have exquisite tenderness to the medial malleolar region of that left ankle with evidence of an effusion. She does not want to me to tap it with a needle. So, the plain x-rays did not disclose an overt fracture. She does have amorphous calcification of the medial part of the ankle consistent with chronic injury of capsulitis and possible inflammatory arthritis type of picture. She does have osteopenia. So, we sent her for repeat x-ray two days after of that left ankle; it does not show any fracture on the new x-ray, so then we ordered an MRI of that left ankle. The MRIs was not read yet as 11 a.m. is approaching but we are going to put her on an Aircast and a walking boot. I feel as though there is enough evidence to say that this is not an unstable fracture, so we could ambulate her with an Aircast and a shoe that fits over the Aircast and we will wait for the official interpretation. If the swelling does get worse in that left ankle, I may be able to convince her to aspirate the fluid to see if it is blood or arthritic fluid or even inflammatory arthritis like gout or pseudogout and this is what we do not do that on the Wednesday because it is not going to be interpreted with the black light today by the pathologist, so if it is worse tomorrow, Wednesday, I will try to convince her to take the fluid out of her ankle and analyze it under the microscope. In the meantime, we will treat her for arthritic pain in the left ankle, possibility of a stress fracture, and to wait the MRI interpretation, and then with an Aircast and a walking boot. Erlin Connell DO
[2018-01-24] MEDS: Aztreonam 1 Gm in NS 100mL 100 ML IVPB SCH ×2 (05:27→15:18)
[2018-01-24 06:39] LABS: HEMOGLOBIN 11.8 g/dL (12.0-16.0); MEAN CORPUSCULAR HEMOGLOBIN 26.6 pg (25.0-35.0); MEAN CORPUSCULAR HGB CONC 32.4 g/dl (31.0-37.0); MEAN PLATELET VOLUME 11.5 fl (7.0-11.0); RBC 4.44 10^6/uL (3.5-6.1); RED CELL DISTRIBUTION WIDTH 16.6 % (11.5-14.5); WHITE BLOOD COUNT 12.8 10^3/ul (4.5-11.0)
[2018-01-24] MEDS: Vancomycin 1gm in NS 250ml 1 GM/250 ML BAG IVPB SCH (07:01)
[2018-01-24 07:06] LABS: ALB/GLOB RATIO 0.8 (1.1-1.8); ALBUMIN 3.4 g/dL (3.0-4.8); ALT/SGPT 29 U/L (7-56); AST/SGOT 35 U/L (14-36); BLOOD UREA NITROGEN 16 mg/dL (7-21); CALCIUM 10.2 mg/dL (8.4-10.5); GFR AFRICAN-AMERICAN > 60; GFR NON-AFRICAN AMERICAN > 60
[2018-01-24] MEDS: Insulin Reg-HIGH-Coverage SC SCH ×4 (08:31→21:45)
[2018-01-24] MEDS: Insulin Human NPH/Reg 70/30 Vial(3 ml) SC SCH ×3 (08:33→17:23)
[2018-01-24] MEDS: Pantoprazole 40 mg EC Tab PO SCH (09:34)
[2018-01-24] MEDS: POLYETHYLENE GLYCOL 3350 17 GM/Dose PACKET PO SCH (09:34)
--- NOTE | 2018-01-24 09:55 | PN ---
DATE: 01/22/2018 SUBJECTIVE: I saw her resting in bed. The left side still hurts her. She has not gotten out of bed. She is on IV fluids, aztreonam, insulin, metoprolol, morphine for the pain, Protonix, IV fluids, Tylenol, vancomycin IV and Zofran. PHYSICAL EXAMINATION: VITAL SIGNS: She has a 97.6 temp, 76 pulse, 166/79 blood pressure, 22 respiratory rate, 97% O2 sat on room air. HEENT: Head is atraumatic, normocephalic. HEART: Regular rate. LUNGS: Decreased breath sounds, but clear. ABDOMEN: Soft. Positive bowel sounds. EXTREMITIES: Left leg, there is no edema, but it is very painful to palpation. LABORATORY DATA: She has a 15,000 white count, now it is down to 14.8; hemoglobin is 12; hematocrit 37.8; platelets of 206. Sodium 147, potassium is 5.2, BUN 23, creatinine 0.7, GFR is greater than 60. Sugars are elevated, 279, then 234, then 237. I will adjust the medication. Calcium is 9.8, AST is 56, ALT is 44, alk phos 103, total protein 7.5. ASSESSMENT AND PLAN: Being seen by no one yet, but that there are consults for Neurology, Infectious Disease, Cardiology. We will get her out of bed to chair, physical therapy. Continue IV antibiotics. She is here for syncope, left-sided leg pain, diabetes, kidney stones. She is status post colon cancer resection. Dipak Hemphill DO
[2018-01-24] MEDS: Sodium Chloride 0.45% 1,000 ML IV SCH (11:56)
--- NOTE | 2018-01-24 12:44 | PN ---
DATE: SUBJECTIVE: She is resting comfortably in bed. Her left foot is now on a boot. She had severe pain even to palpation. She had another x-ray of the ankle and foot of left leg and became normal. MRI, which showed normal. Not sure why she has so much pain in the foot to palpation. It is little bit better this morning. The patient needs physical therapy. She is also on IV antibiotics for SIRS and she is physical therapy to get through this left foot pain TCU today. She is eating a little bit, but she is also having bowel issues and she is on MiraLax. PHYSICAL EXAMINATION: VITAL SIGNS: She has 97.8 temperature, 75 pulse, 158/67 blood pressure, 20 respiratory rate, 96% O2 sat on room air. HEENT: Head is atraumatic, normocephalic. HEART: Regular rate. LUNGS: Clear to auscultation. ABDOMEN: Soft. Decreased bowel sounds are present. No tenderness. No guarding, no rebound. EXTREMITIES: A little bit better to palpation. No edema and the left foot is in the boot. She is on Antivert, Azactam, insulin, Lopressor, MiraLax, morphine, Protonix, IV fluids, Tylenol and vancomycin. She has 141 sodium, potassium 4, BUN is 16, creatinine 0.6, GFR is greater that 60, sugars 288. I will tighten up for diabetes. Calcium 7.2, total bili is 1.4, AST is 35, ALT is 29, alk phos 109, total protein 7.6. White count is still up at 12.8, hemoglobin 11.8, hematocrit 36.4, platelets are 207. She is being seen by Orthopedics, Infectious Disease. If she is not going to the bathroom today, I will consult GI. Hopefully, we get her to TCU today for further treatment and care. We will see her for SIRS, syncope and left foot pain. Dipak Hemphill DO [facility]
--- NOTE | 2018-01-24 15:00 | CON ---
DATE: 01/24/2018 NEUROLOGY CONSULTATION CHIEF COMPLAINT: Syncope. HISTORY OF PRESENT ILLNESS: This is an 87-year-old woman with history of COPD, hypertension, type 2 diabetes mellitus, history of nephrolithiasis, status post laparoscopic cholecystectomy, history of questionable seizures, status post cataract surgery, who presented with a questionable syncopal episode where she apparently fainted in the bathroom. She apparently bumped her head, but did not hurt anything. Left leg is hurting, but lower extremity MRI was unremarkable. She currently feels mildly dizzy, most likely mild spinning sensation of the room, but otherwise . She has been constipated in the past few days, otherwise no acute events overnight. CAT scan showed no acute intracranial abnormality. There is no lacunar infarct in the left anterior internal capsule. No acute events overnight. PAST MEDICAL HISTORY: History of COPD, hypertension, diabetes, nephrolithiasis status post laparoscopic cholecystectomy, status post cataract surgery, history of colon cancer status post resection. MEDICATIONS: Reviewed by nurse per reconciliation sheet. REVIEW OF SYSTEMS: A 14-point review of systems is negative except as in the HPI. FAMILY HISTORY: Noncontributory. ALLERGIES: ALLERGIC TO PENICILLIN AND SULFONAMIDES. PHYSICAL EXAMINATION: VITAL SIGNS: Temperature is 98, pulse rate of 86, blood pressure 172/81, respiratory rate of 20, oxygen saturation 94% by room air. GENERAL: The patient is sitting up in bed, in no acute distress. HEENT: Head is atraumatic, normocephalic. PERRLA. Extraocular muscles intact. NECK: Supple. No JVD. No adenopathy noted. LUNGS: Clear to auscultation. No adventitious sounds. HEART: S1 and S2, normal rate and rhythm. No murmur, rubs, or gallops. ABDOMEN: Soft, nontender, nondistended. Bowel sounds present. EXTREMITIES: No clubbing. No cyanosis. Peripheral pulses 2+ felt bilaterally. NEUROLOGIC: The patient is alert and oriented to person, place, month, and year. Speech is fluent without any errors. Cranial nerves II through XII intact. Motor exam: Slight increased tone throughout. Moves all extremities equally. Sensory exam: Decreased light touch and pinprick, proprioception, and vibration up to the calves bilaterally. Decreased vibration of the toes. DTRs are 2+ throughout, 1 at both knees and absent at the ankles. Coordination [id number] intact. LABORATORY DATA: Sodium is 141, potassium 4, chloride of 104, carbon dioxide of 29. BUN of 16, creatinine 0.6. Random glucose of 245. ASSESSMENT AND PLAN: This is an 87-year-old woman with history of chronic obstructive pulmonary disease, hypertension, diabetes, nephrolithiasis, status post laparoscopic cholecystectomy, history of colon cancer status post colon surgery, status post cataract surgery, brought in for questionable syncopal event, apparently fainted in the bathroom. She felt dizzy in terms of spinning sensation of the room and occasionally lightheaded. Apparently, she is constipated in the past few days. At this time, the syncope could be secondary to vasovagal components superimposed underlying deconditioned state. She is also recommended: 1. For her vertiginous symptoms to continue with meclizine 25 p.o. q. 8 hours. 2. Keep blood pressures between 130s and 140s systolic and diastolic 70s and 80s. 3. Keep blood sugars between 140 and 180. 4. Recommend Colace 100 mg p.o. b.i.d. for underlying constipation. 5. Physical and occupational therapy evaluation and continue current present medical management. Thank you for this consult. She is clinically stable from neuro standpoint. Mulugeta Freeman MD
--- NOTE | 2018-01-24 16:52 | CP.PCM.PN ---
Subjective - Date & Time of Evaluation Date of Evaluation: 01/24/18 Time of Evaluation: 10:10 - Subjective Subjective: No fevers, not in distress. Objective - Vital Signs/Intake and Output Vital Signs (last 24 hours): Temp Pulse Resp BP Pulse Ox 97.6 F 76 22 166/79 H 97 01/22/18 06:00 01/22/18 09:49 01/22/18 06:00 01/22/18 09:49 01/22/18 06:00 Intake and Output: 01/22/18 01/22/18 06:59 18:59 Intake Total 420 Output Total 400 Balance 20 - Medications Medications: Current Medications Acetaminophen (Tylenol 325mg Tab) 650 mg PO Q6H PRN PRN Reason: Pain, moderate (4-7) Last Admin: 01/22/18 01:42 Dose: 650 mg Sodium Chloride (Sodium Chloride 0.45%) 1,000 mls @ 30 mls/hr IV .Q24H [facility] Last Admin: 01/21/18 12:11 Dose: 30 mls/hr Aztreonam (Azactam 1 Gm) 100 mls @ 100 mls/hr IVPB Q8 [facility] PRN Reason: Protocol Stop: 01/28/18 22:01 Last Admin: 01/22/18 14:40 Dose: 100 mls/hr Vancomycin HCl (Vancomycin 1gm) 1 gm in 250 mls @ 167 mls/hr IVPB Q12H [facility] PRN Reason: Protocol Last Admin: 01/22/18 08:53 Dose: 167 mls/hr Insulin Human Regular (Humulin R High) 0 units SC ACHS [facility] PRN Reason: Protocol Last Admin: 01/22/18 12:36 Dose: 4 units Metoprolol Tartrate (Lopressor) 25 mg PO DAILY [facility] Last Admin: 01/22/18 09:49 Dose: 25 mg Morphine Sulfate (Morphine) 1 mg IVP Q3 PRN PRN Reason: Pain, severe (8-10) Last Admin: 01/22/18 09:48 Dose: 1 mg Pantoprazole Sodium (Protonix Ec Tab) 40 mg PO DAILY [facility] Last Admin: 01/22/18 09:49 Dose: 40 mg - Labs Labs: 01/22/18 06:30 01/22/18 06:30 PT 11.3 SECONDS (9.4-12.5) 01/21/18 11:50 INR 0.98 (0.93-1.08) 01/21/18 11:50 APTT 26.8 Seconds (25.1-36.5) 01/21/18 11:50 - Constitutional Appears: Chronically Ill - Head Exam Head Exam: NORMAL INSPECTION - Neck Exam Neck Exam: absent: Meningismus - Respiratory Exam Respiratory Exam: Decreased Breath Sounds - Cardiovascular Exam Cardiovascular Exam: +S1, +S2 - GI/Abdominal Exam GI & Abdominal Exam: Soft. absent: Tenderness Assessment and Plan - Assessment and Plan (Free Text) Plan: Assessment S/P systemic inflammatory response syndrome, with no source of sepsis determined history of sepsis from right lower quadrant phelgmon from possible cecal mass Diphtheroids in blood cx - R/O contamination COPD HTN DM seizure disorder history of nephrolithiasis S/P laparoscopic cholecystectomy S/P cataract surgery obesity with BMI 32 Plan cultures have been negative; CT C/A/P did not show acute findings will monitor off antibiotics
--- NOTE | 2018-01-24 20:01 | CON ---
DATE: 01/24/2018 CARDIOLOGY CONSULTATION HISTORY OF PRESENT ILLNESS: The patient is an 87-year-old woman who presented with a fall. She complains of pain in her hip and her lower extremities. PAST MEDICAL HISTORY: Includes diabetes mellitus, hypertension as well as documented pulmonary hypertension. Patient denies chest pain, denies shortness of breath. There is no evidence for syncope. SOCIAL HISTORY: Patient had a does not smoke. REVIEW OF SYSTEMS: 14-point review of systems was reviewed in detail. No cardiac symptomatology is noted. PHYSICAL EXAMINATION: VITAL SIGNS: Blood pressure varies from 158 to 172 systolic, heart rate in the 90s. NECK: Negative JVD. LUNGS: Without rales. HEART: Reveals S1, S2. EXTREMITIES: Without edema. LABORATORY DATA: EKG is normal sinus rhythm and unremarkable. Hemoglobin is 11.8, glucose is 245. Troponins are negative x1. Stress test that was done last month revealed no ischemia with normal LV function. IMPRESSION: 1. Diffuse arthritic pain in the lower extremities. 2. Status post fall without evidence for syncope. 3. Normal left ventricular function. 4. No evidence for left ventricular outflow obstruction. 5. Diabetes mellitus. 6. Hypertension. Given these findings, the patient is currently on beta blockers as well as her insulin. We will restart her lisinopril for better blood pressure control. Yahir Ortega MD
--- NOTE | 2018-01-24 21:37 | US ---
PROCEDURE: Bilateral carotid artery duplex ultrasound HISTORY: Carotid stenosis PHYSICIAN(S): Yahir Ceballos MD. TECHNIQUE: Duplex sonography and color-flow Doppler were used to evaluate the carotid bifurcations and limited segments of the vertebral arteries bilaterally. FINDINGS: There is mild diffuse smooth heterogeneous plaque noted at the carotid bifurcations bilaterally. The peak systolic velocity in the proximal right internal carotid artery is 79 cm/sec. This corresponds to a 20 to 39% proximal right ICA stenosis. Normal systolic velocities are noted in the proximal right external carotid artery. There is antegrade flow in the right vertebral artery. The peak systolic velocity in the proximal left internal carotid artery is 59 cm/sec. This corresponds to a 20 to 39% proximal left ICA stenosis. Normal systolic velocities are noted in the proximal left external carotid artery. There is antegrade flow in the left vertebral artery. IMPRESSION: 1. Bilateral 20-39% proximal ICA stenoses. 2. Antegrade flow in both vertebral arteries.
[2018-01-25 08:33] VITALS: BP 131/96; PULSE 89; RESP 20; TEMP 98.6; O2SAT 96
--- NOTE | 2018-01-25 08:44 | PN ---
DATE: SUBJECTIVE: This is an 87-year-old female. The patient being followed for the left ankle swelling, proves that there is no fracture on x-ray or MRI. She had mild effusion of the ankle with amorphous complications suggestive of osteoarthritis over last several years. She feels better this morning. I told her she could wear the Aircast when she is up and about with the shoe, but does not need it in bed and hopefully, the pain will subside gradually everyday. FINAL DIAGNOSES: Left ankle sprain compatible with ambulation with Aircast and walking fracture shoe and with a cane or walker. If this swells up more, we can always aspirate the fluid, but the swelling is much less now and I will follow her while she is seen in the hospital. Erlin Connell DO
[2018-01-25] MEDS: POLYETHYLENE GLYCOL 3350 17 GM/Dose PACKET PO SCH (09:05)
[2018-01-25] MEDS: Pantoprazole 40 mg EC Tab PO SCH (09:06)
[2018-01-25] MEDS: Insulin Reg-HIGH-Coverage SC SCH ×2 (09:07→13:16)
[2018-01-25] MEDS: Insulin Human NPH/Reg 70/30 Vial(3 ml) SC SCH ×3 (09:08→17:06)
[2018-01-25] MEDS: Morphine 2 mg/ml ISec IVP PRN (12:22)
[2018-01-25] MEDS: Sodium Chloride 0.45% 1,000 ML IV SCH (13:17)
[2018-01-25] MEDS ORDERED: Dextrose 50% SYRINGE Inj (50 ml) ONE (15:46)
--- NOTE | 2018-01-25 16:34 | PN ---
DATE: 01/25/2018 CARDIOLOGY FOLLOWUP SUBJECTIVE: The patient is comfortable in bed. PHYSICAL EXAMINATION: VITAL SIGNS: Blood pressure is improved to 131/96, the heart rates in the 80s. NECK: Negative JVD. LUNGS: Without rales. HEART: Reveals S1, S2. EXTREMITIES: Without edema. LABORATORY DATA: Hemoglobin is 11.8. Chemistries: Creatinine is 0.6 with a glucose of 187. IMPRESSION: 1. Status post sprain of the lower extremity. 2. Hypertension, which is much improved. 3. Diabetes mellitus. 4. Status post fall. PLAN: Given these findings, the patient is much improved. I would continue the patient on lisinopril. No further cardiac workup is indicated at this time. Yahir Ortega MD
--- NOTE | 2018-01-25 22:28 | PN ---
DATE: SUBJECTIVE: Patient is in bed, in no acute distress, was seen earlier this morning in room 362, bed 1. The patient had a fever last night. PHYSICAL EXAMINATION: VITAL SINGS: The patient had a T-max of 101.4 and blood pressure is 130/90, respiratory rate of 20. HEENT: Unremarkable. NECK: Supple. LUNGS: Decreased breath sounds. HEART: Normal S1 and S2. ABDOMEN: Soft and nontender. LABORATORY DATA: Laboratory examination reveals a white count of 12,800, hemoglobin 11, platelets of 207. Coagulation as noted. BUN is 16, creatinine of 0.6. Blood cultures are negative. ASSESSMENT AND PLAN: An 87-year-old with systemic inflammatory response syndrome and history of sepsis phlegmon, possible it radiates in the blood, rule out contamination, and patient with chronic obstructive pulmonary disease. This morning, had a temperature of 101, and an IV site infiltrate in the left arm and the IV site was removed, temperature is down. Currently off of antibiotics. Dr. Yahir Ortega's progress note is reviewed and we will order repeat blood cultures and urine, and follow closely with you. Delonte Nair MD
--- NOTE | 2018-01-26 09:12 | DS ---
SUMMARY: She is resting comfortably in bed. She is doing fairly well, is in good spirits. She is having a left ankle sprain. The MRI was negative. She is being seen by multiple doctors. She is on IV fluids, Antivert, Colace, insulin coverage, Januvia, Lopressor, MiraLax, Protonix, Tylenol, Zestril. OBJECTIVE: VITAL SIGNS: Temperature 98.6, 89 pulse, 131/96 blood pressure, 20 respiratory rate, 96% O2 sat on nasal cannula. I will increase her blood pressure medications. HEENT: Head is atraumatic, normocephalic. HEART: Regular rate. LUNGS: Clear to auscultation. ABDOMEN: Soft. EXTREMITIES: Left ankle is painful, she needs to walk in an Aircast. LABORATORY DATA: She has a white count of 12.8 - still elevated, 11.8 hemoglobin, 36.4 hematocrit with a 207 platelets. We will watch the white count. She has a 141 sodium, potassium is 4, BUN 16, creatinine 0.6. Last blood sugar was 187. Calcium is 10.2, total bili is 1.4, AST is 35, ALT is 29, alk phos is 109. IMPRESSION AND PLAN: She will be transfered to [facility] today. The blood cultures and urine cultures were negative. She is currently off antibiotics. She has physical therapy. I am going to add Norvasc for her blood pressure. Hopefully we can continue watching her over at [facility]. She is walking better. She will be discharged there today for physical therapy before she goes home. She had syncope, systemic inflammatory response syndrome, left-sided leg pain, left ankle sprain, kidney stone, constipation, diabetes. Dipak Hemphill DO
== END 2018-01-25 17:35 | DRG 312 ==
LOC: ED 08:53 → ERH 12:50 → 3RNO 14:05
PROVIDERS: ADMIT Family Medicine; ATTEND Family Medicine
DX: R55 Syncope and collapse (principal); R65.10 Systemic inflammatory response syndrome (SIRS) of non-infectious origin without acute organ dysfunction; I27.20 Pulmonary hypertension, unspecified; D64.9 Anemia, unspecified; E11.9 Type 2 diabetes mellitus without complications; E66.9 Obesity, unspecified; F03.90 Unspecified dementia, unspecified severity, without behavioral disturbance, psychotic disturbance, mood disturbance, and anxiety; G40.909 Epilepsy, unspecified, not intractable, without status epilepticus; J44.9 Chronic obstructive pulmonary disease, unspecified; W19.XXXA Unspecified fall, initial encounter; F32.9 Major depressive disorder, single episode, unspecified; K21.9 Gastro-esophageal reflux disease without esophagitis; S93.402A Sprain of unspecified ligament of left ankle, initial encounter; I10 Essential (primary) hypertension; K59.00 Constipation, unspecified; R42 Dizziness and giddiness; N20.0 Calculus of kidney; Z68.32 Body mass index [BMI] 32.0-32.9, adult; Z85.038 Personal history of other malignant neoplasm of large intestine; Y92.9 Unspecified place or not applicable; Z90.49 Acquired absence of other specified parts of digestive tract; Z87.891 Personal history of nicotine dependence; Z88.2 Allergy status to sulfonamides; Z88.0 Allergy status to penicillin

== ENCOUNTER 2018-06-14 23:33 | Observation (INO) | payer MEDICARE, MEDICAID ==
[2018-06-14 23:52] VITALS: BMI 23.0
[2018-06-15] MEDS ORDERED: Insulin Regular 1 UNITS/0.01 ML ML SC STA ×2 (00:05→02:50)
--- NOTE | 2018-06-15 00:16 | ED PDOC ---
Arrival/HPI <OralMalachi - Last Filed: 06/15/18 01:29> <Diamond Albert - Last Filed: 06/15/18 04:34> - General Chief Complaint: High Blood Sugar Time Seen by Provider: 06/14/18 23:36 - History of Present Illness Narrative History of Present Illness (Text): 88 year old female with past medical history of diabetes, hypertension, dementia , COPD, seizure, anemia, nephrolithaisis, and colon polyps presents with a self reported blood sugar of over 500. She reports checking her glucose at home and her blood glucose was over 500. On presentation, her glucose was checked and found to be 493. Acute complaints include dysuria, but denies urinary frequency and hematuria. Patient reports frontal headache with evidence of photophobia but no phonophobia. Patient does not have a history of migranes. Patient reports burning epigastric abdominal pain that has been ongoing for 3 weeks, an increase in appetite for a few weeks, numbness in bilateral lower extremities for "a while". Patient denies acute chest pain, shortness of breath, wheezing, cough, constipation, and diarrhea. (Diamond Albert) Past Medical History - Provider Review Nursing Documentation Reviewed: Yes - Infectious Disease Hx of Infectious Diseases: None - Tetanus Immunization Tetanus Immunization: Unknown - Reproductive Menopause: Yes - Cardiac Hx Hypertension: Yes - Pulmonary Hx Asthma: Yes - Neurological Hx Neurological Disorder: Yes Hx Dementia: Yes Hx Seizures: Yes - HEENT Hx HEENT Disorder: Yes (glasses) Hx Cataracts: Yes (bilateral sx) - Renal Hx Renal Disorder: Yes Hx Kidney Stones: Yes - Endocrine/Metabolic Hx Endocrine Disorders: Yes Hx Diabetes Mellitus Type 2: Yes - Hematological/Oncological Hx Blood Disorders: Yes (blood transfusion) Hx Anemia: Yes Hx Cancer: Yes (colon cancer) - Integumentary Hx Dermatological Disorder: No - Musculoskeletal/Rheumatological Hx Falls: Yes - Gastrointestinal Hx Gastrointestinal Disorders: Yes Hx Gastroesophageal Reflux: Yes - Genitourinary/Gynecological Hx Genitourinary Disorders: No - Psychiatric Hx Psychophysiologic Disorder: Yes Hx Depression: Yes Hx Substance Use: No - Surgical History Hx Cholecystectomy: Yes - Anesthesia Hx Anesthesia: Yes Hx Anesthesia Reactions: Yes Hx Malignant Hyperthermia: No - Suicidal Assessment Feels Threatened In Home Enviroment: No <Diamond Albert - Last Filed: 06/15/18 04:34> Family/Social History - Physician Review Nursing Documentation Reviewed: Yes Family/Social History: Unknown Family HX Smoking Status: Former Smoker Hx Alcohol Use: No Hx Substance Use: No Hx Substance Use Treatment: No <Diamond Albert - Last Filed: 06/15/18 04:34> Allergies/Home Meds <Malachi Mixon - Last Filed: 06/15/18 01:29> <Diamond Albert - Last Filed: 06/15/18 04:34> Allergies/Adverse Reactions: Allergies Penicillins Allergy (Verified 01/21/18 13:42) RASH Sulfa (Sulfonamide Antibiotics) Allergy (Verified 01/21/18 13:42) RASH Home Medications: Home Meds Medication Instructions Recorded Confirmed hydrALAZINE [hydralazine 10 mg PO DAILY 12/10/17 01/21/18 Hydrochloride] Esomeprazole Magnesium [Nexium] 40 mg PO DAILY 01/21/18 01/21/18 Insulin NPH Hum/Reg Insulin Hm 10 ml SC AC 01/21/18 01/21/18 [Humulin 70/30 70 U/ml-30 U/ml 10 ml] Lisinopril [Zestril] 20 mg PO DAILY 01/21/18 01/21/18 Metoprolol Tartrate [Lopressor] 25 mg PO DAILY 01/21/18 01/21/18 Review of Systems - Review of Systems Constitutional: Normal. absent: Fevers Eyes: Normal, Photophobia. absent: Vision Changes ENT: Normal. absent: Hearing Changes Respiratory: Normal. absent: SOB (no acute SOB), Cough, Sputum Cardiovascular: Normal. absent: Chest Pain, Palpitations Gastrointestinal: Abdominal Pain (epigastric burning pain), Nausea, Appetite Changes (increase in appetite). absent: Constipation, Diarrhea, Vomiting Genitourinary Female: Dysuria Musculoskeletal: Normal Skin: Normal Neurological: Headache (frontal headache), Dizziness (mild) <Diamond Albert - Last Filed: 06/15/18 04:34> Physical Exam <Malachi Mixon - Last Filed: 06/15/18 01:29> Temperature: Afebrile Blood Pressure: Hypertensive Pulse: Regular Respiratory Rate: Normal Appearance: Positive for: Well-Appearing Pain Distress: Mild Mental Status: Positive for: Alert and Oriented X 3 Finger Stick Blood Glucose: 493 - Systems Exam Head: Present: Atraumatic, Normocephalic Pupils: Present: PERRL Extroacular Muscles: Present: EOMI Nose (External): Present: Atraumatic Respiratory/Chest: Present: Clear to Auscultation, Good Air Exchange Cardiovascular: Present: Regular Rate and Rhythm, Normal S1, S2. No: Murmurs Abdomen: Present: Normal Bowel Sounds. No: Tenderness, Distention Upper Extremity: Present: Normal Inspection, Normal ROM, NORMAL PULSES Lower Extremity: Present: Normal Inspection, NORMAL PULSES, Normal ROM Neurological: Present: GCS=15, CN II-XII Intact, Speech Normal, Motor Func Grossly Intact Skin: Present: Warm, Dry, Normal Color Psychiatric: Present: Alert, Oriented x 3 <Diamond Albert - Last Filed: 06/15/18 04:34> Vital Signs Temp Pulse Resp BP Pulse Ox 06/14/18 23:52 98.3 F 81 18 174/91 H 98 06/14/18 23:45 67 20 97 Medical Decision Making <Malachi Mixon - Last Filed: 06/15/18 01:29> <Diamond Albert - Last Filed: 06/15/18 04:34> ED Course and Treatment: 06/15/18 01:29 Simi Hernandez is an 88 year old female who presents to the emergency department for further evaluation of hyperglycemia, headache, and dysuria. In agreement with resident note, which includes further HPI details. Patient was seen and evaluated with resident, came up with plan and treatment together. ( Malachi Mixon) Impression: 88 year old female with past medical history of diabetes, hypertension, dementia, COPD, seizure, anemia, nephrolithaisis, and colon polyps presents with a self reported blood sugar of over 500, frontal headache, and dysuria. Assessment: hyperglycemia, diabetic neuropathy Rule out UTI Plan: Tylenol 325mg for headache. Insulin 10 U for hyperglycemia. CBC, CMP to evaluate for anemia, leukocytosis, or electrolyte disturbances. Urinanalysis/UC for evaluation for UTI. 06/15/18 02:49 Finger stick glucose is 393 from 493. Patient will get 8 U of insulin IV. CBC, CMP, and Urinalysis were all remarkable, other than for Hgb of 11.9. 06/15/18 04:[address] Hemphill's FLEET OPERATIONS MANAGER who agreed with keeping the patient for observation. Boo Spear Attestation: All medical record entries made by the Mengibe were at my direction and personally dictated by me. I have reviewed the chart and agree that the record accurately reflects my personal performance of the history, physical exam, medical decision making, and the department course for this patient. I have also personally directed, reviewed, and agree with the discharge instructions and disposition.- (Diamond Albert) - Lab Interpretations Lab Results: 06/15/18 00:57 06/15/18 00:57 Lab Results 06/15/18 00:57: Lactate Dehydrogenase 482, Total Creatine Kinase 66, Troponin I < 0.01 06/15/18 00:57: Sodium 137, Potassium 4.6, Chloride 101, Carbon Dioxide 26, Anion Gap 14, BUN 22 H, Creatinine 0.8, Est GFR ( Amer) > 60, Est GFR ( Non-Af Amer) > 60, Random Glucose 614 H* D, Calcium 9.8, Magnesium 2.0, Total Bilirubin 0.7, AST 25, ALT 23, Alkaline Phosphatase 127 H, Total Protein 7.8, Albumin 3.8, Globulin 3.9, Albumin/Globulin Ratio 1.0 L, Lipase 149 06/15/18 00:57: Urine Color Straw, Urine Appearance Clear, Urine pH 6.0, Ur Specific [place] <= 1.005, Urine Protein Negative, Urine Glucose (UA) >=1000, Urine Ketones Negative, Urine Blood Negative, Urine Nitrate Negative, Urine Bilirubin Negative, Urine Urobilinogen 0.2, Ur Leukocyte Esterase Trace H, Urine RBC Negative, Urine WBC 2 - 5, Ur Epithelial Cells 6 - 8, Urine Bacteria Mod 06/15/18 00:57: WBC 9.7 D, RBC 4.28, Hgb 11.9 L, Hct 35.2 L, MCV 82.2, MCH 27.8 , MCHC 33.8, RDW 15.0 H, Plt Count 248, MPV 11.3 H, Gran % 56.1, Lymph % (Auto) 28.0, [place] % (Auto) 7.6 H, Eos % (Auto) 7.7 H, Baso % (Auto) 0.6, Gran # 5.43, Lymph # (Auto) 2.7, [place] # (Auto) 0.7 H, Eos # (Auto) 0.8 H, Baso # (Auto) 0.06 - RAD Interpretation Radiology Orders: 06/15/18 01:28 CHEST PORTABLE [RAD] Stat - Medication Orders Current Medication Orders: Discontinued Medications Acetaminophen (Tylenol 325mg Tab) 325 mg PO STAT STA Stop: 06/15/18 00:22 Last Admin: 06/15/18 00:52 Dose: 325 mg Sodium Chloride (Sodium Chloride 0.9%) 500 mls @ 500 mls/hr IV .Q1H STA Stop: 06/15/18 02:25 Last Admin: 06/15/18 01:46 Dose: 500 mls/hr Insulin Human Regular (Humulin R) 10 units SC STAT STA Stop: 06/15/18 00:06 Last Admin: 06/15/18 00:52 Dose: 10 u - Scribe Statement The provider has reviewed the documentation as recorded by the Scribe <Malachi Mixon - Last Filed: 06/15/18 01:29> - PA / FLEET OPERATIONS MANAGER / Resident Statement MD/ has reviewed & agrees with the documentation as recorded. MD/DO has examined the patient and agrees with the treatment plan. <Diamond Albert - Last Filed: 06/15/18 04:34> - Scribe Statement Kristyn Rosen Provider Scribe Attestation: All medical record entries made by the Scribe were at my direction and personally dictated by me. I have reviewed the chart and agree that the record accurately reflects my personal performance of the history, physical exam, medical decision making, and the department course for this patient. I have also personally directed, reviewed, and agree with the discharge instructions and disposition. (Malachi Mixon) Disposition/Present on Arrival <Malachi Mixon - Last Filed: 06/15/18 01:29> - Present on Arrival Any Indicators Present on Arrival: No History of DVT/PE: No History of Uncontrolled Diabetes: No Urinary Catheter: No History of Decub. Ulcer: No History Surgical Site Infection Following: None - Disposition Have Diagnosis and Disposition been Completed?: Yes Disposition Time: 00:27 Patient Plan: Admission <Diamond Albert - Last Filed: 06/15/18 04:34> - Disposition Diagnosis: Hyperglycemia, Diabetic neuropathy Disposition: HOSPITALIZED Patient Problems: Current Active Problems Problem Status Onset Diabetic neuropathy Acute Hyperglycemia Acute Condition: STABLE Forms: Vrvana (Honduran)
[2018-06-15 01:03] LABS: BASO # 0.06 K/mm3 (0.0-2.0); BASO % 0.6 % (0.0-3.0); EOS # 0.8 (0.0-0.7); EOS % 7.7 % (1.5-5.0); GRAN # 5.43 (1.4-6.5); GRAN % 56.1 % (50.0-68.0); HEMOGLOBIN 11.9 g/dL (12.0-16.0); LYMPH # 2.7 (1.2-3.4); MEAN CELL VOLUME 82.2 fl (80.0-105.0); MEAN CORPUSCULAR HEMOGLOBIN 27.8 pg (25.0-35.0); MEAN CORPUSCULAR HGB CONC 33.8 g/dl (31.0-37.0); MEAN PLATELET VOLUME 11.3 fl (7.0-11.0); MONO # 0.7 (0.1-0.6); MONO % 7.6 % (1.0-6.0); RBC 4.28 10^6/uL (3.5-6.1)
[2018-06-15 01:08] LABS: WHITE BLOOD COUNT 9.7 10^3/ul (4.5-11.0)
[2018-06-15 01:15] LABS: ALBUMIN 3.8 g/dL (3.0-4.8); ALT/SGPT 23 U/L (7-56); AST/SGOT 25 U/L (14-36); BLOOD UREA NITROGEN 22 mg/dL (7-21); CALCIUM 9.8 mg/dL (8.4-10.5); GFR AFRICAN-AMERICAN > 60; GFR NON-AFRICAN AMERICAN > 60; LIPASE 149 U/L (23-300)
[2018-06-15 01:18] LABS: URINE BILIRUBIN NEGATIVE (NEGATIVE); URINE BLOOD NEGATIVE (NEGATIVE); URINE GLUCOSE (UA) >=1000 mg/dL (NEGATIVE); URINE LEUKOCYTE ESTERASE TRACE Leu/uL (NEGATIVE); URINE PROTEIN NEGATIVE mg/dL (<30 mg/dL); URINE UROBILINOGEN 0.2 E.U./dL (<1 E.U./dL)
[2018-06-15] MEDS ORDERED: Sodium Chloride 0.9% 500 ML IV STA (01:26)
[2018-06-15 01:28] LABS: URINE COLOR STRAW (YELLOW)
[2018-06-15 01:29] LABS: URINE APPEARANCE CLEAR (CLEAR)
[2018-06-15 01:38] LABS: URINE RBC NEGATIVE /hpf (0-2)
[2018-06-15 01:39] LABS: URINE BACTERIA MOD (NEG)
[2018-06-15 02:23] LABS: TROPONIN I < 0.01 ng/mL
[2018-06-15] MEDS ORDERED: Sodium Chloride 0.9% 1,000 ML IV STA ×2 (03:26→08:15)
[2018-06-15] MEDS ORDERED: Pneumococcal 23-Valent Vaccine IM ONE (06:28)
[2018-06-15] MEDS: Insulin Reg-LOW-Coverage SC SCH ×2 (09:45→11:59)
[2018-06-15] MEDS: Pantoprazole 40 mg EC Tab PO SCH (09:46)
--- NOTE | 2018-06-15 09:52 | RAD ---
Date of service: 06/15/2018 HISTORY: hyperglycemia COMPARISON: 01/21/2018 FINDINGS: LUNGS: No active pulmonary disease. PLEURA: No significant pleural effusion identified, no pneumothorax apparent. CARDIOVASCULAR: Normal. OSSEOUS STRUCTURES: No significant abnormalities. VISUALIZED UPPER ABDOMEN: Normal. OTHER FINDINGS: None. IMPRESSION: No active disease.
[2018-06-15] MEDS ORDERED: Non Formulary Medication (Esomeprazole Magnesium [Nexium] 40 MG) PO SCH (10:00)
--- NOTE | 2018-06-15 16:17 | CON ---
DATE: 06/15/2018 ENDOCRINOLOGY CONSULT LOCATION: In room 567. HISTORY OF PRESENT ILLNESS: This is an 88-year-old female with known history of type 2 insulin-requiring diabetes, presenting here with marked hyperglycemic accelerations and glucose levels over 500 at home and also has concomitant generalized body weakness with marked dysuria and lower pelvic pain and is now being referred for diabetic evaluation and management. PAST MEDICAL HISTORY: As mentioned above, history of type 2 insulin-requiring diabetes, currently on a premixed insulin regimen, using Humulin 70/30 given as 10 units subcu t.i.d. with meals as noted. History of hypertension and dyslipidemia, history of chronic obstructive lung disease and chronic bronchial asthma with multiple admissions for exacerbations of the same, history of generalized anxiety and currently on anxiolytic medications. She also has significant history of colon carcinoma and multiple colonic polyps and underwent colon resection many years ago. History of also prior cholecystectomy for underlying cholelithiasis. She also has chronic seizure disorder, currently on medications as noted. History of senile dementia and also on psychotropic medications. Also history of nephrolithiasis with no recent stone passage at this time. FAMILY HISTORY: Positive for diabetes and hypertension. SOCIAL HISTORY: The patient has supportive family. Has a remote history of smoking, but stopped many years ago. REVIEW OF SYSTEMS: As mentioned above. As per the patient, admits to generalized body weakness with easy fatigability and tiredness and increasing somnolence and lethargy, worse in the last 2-3 days prior to admission. Also admits to bifrontal headaches and visual blurring, again worse in the last few days prior to admission. No chest pains or palpitations, but admits to progressive shortness of breath especially on exertion. Her oral intake has been variable with nausea, dyspepsia and vague upper and lower abdominal pain especially in the pelvic area. Also admits to marked dysuria and urinary hesitancy and nocturia as noted. PHYSICAL EXAMINATION: GENERAL: This is an average built female, in no apparent distress. VITAL SIGNS: Blood pressure of 140/80; pulse of 90 beats per minute, regular; temperature 98; respirations 20; height is 5 feet 3 inches, weight is 130 pounds. HEENT: Head normocephalic. Eyes anicteric with pink conjunctivae. Funduscopy not possible at this time. Ears, nose and throat otherwise normal. NECK: Supple. Thyroid gland is normal in size. No carotid bruits or cervical adenopathy. CARDIOPULMONARY: Some adynamic precordium. S1, S2 is rapid and regular. LUNGS: Clear to auscultation. ABDOMEN: Flat, soft with positive bowel sounds. EXTREMITIES: No peripheral edema. Pulses are +2 bilaterally. LABORATORY DATA: Her chemistries showed a BUN of 22, sodium 137, potassium 4.6, chloride 101, CO2 of 26, glucose 614 mg/dL, creatinine 0.8. Her hemoglobin A1c is 10.8%, which is quite elevated and indicative of suboptimal metabolic control of her diabetic condition even prior to this admission. Her glucose levels are fluctuating and ranging from 290-399 mg/dL. ASSESSMENT: This is an 88-year-old female with uncontrolled and decompensated type 2 insulin-requiring diabetes, presenting here with marked hyperglycemic accelerations and concomitant hyperosmolar hyperglycemic state with no evidence of any ketosis, but has also biochemical evidence of dehydration and prerenal azotemia. She clearly has a subtherapeutic insulin regimen at this time and there is a very big question of whether she is receiving her insulin dosing on a day-to-day basis as the patient actually self administers her own insulin and with increasing lapses of forgetfulness and dementia, there is a question of whether she actually is receiving her day-to-day insulin dose regimen at this time. She also has diabetic microvascular complications of retinopathy and polyneuropathy with diabetic macrovascular complications of coronary artery disease and peripheral arterial disease and vasculopathy. PLAN OF MANAGEMENT: We will modify her current insulin regimen and because she already has Humulin 70/30 given as a premixed insulin regimen at home, we will modify the same insulin regimen since this insulin is the most affordable of all the insulin preparations available at this time. We will increase, however, her dosing regimen of Humulin 70/30 to 24 units before breakfast and 14 units before dinner to start today. We will modify her coverage scale to obviate hypoglycemia and detailed orders have been given. We will titrate incrementally as indicated to optimize metabolic control. If fasting hyperglycemic levels persist, then we will have no choice but to add a basal insulin with Levemir to be given at bedtime daily as indicated. However, at this time, we will try to simplify her insulin regimen with at least only twice daily insulin dosing if at all possible. We will obtain serial chemistries and supplement accordingly as needed. We will continue the IV hydration as given to replenish the lost fluids and electrolytes as expected. We will follow. Jessika Nogueira MD
[2018-06-15] MEDS ORDERED: Insulin Human NPH/Reg 70/30 Vial(3 ml) SC SCH (16:30)
[2018-06-15] MEDS ORDERED: Insulin Lispro (humaLOG) LOW Coverage SC SCH (16:30)
--- NOTE | 2018-06-15 18:41 | CARD ---
APPROVED REPORT Date of service: 06/15/2018 EKG Measurement Heart [id number] <Conclusion> Sinus rhythm with premature atrial complexes Otherwise normal ECG
--- NOTE | 2018-06-15 19:18 | HP ---
HISTORY OF PRESENT ILLNESS: I saw her resting comfortably in bed. She comes in with a history of having reported blood sugar of over 500 at home; in the ER, it was 493; problems with urination; otherwise, she is presently confused, at her baseline. She is an 88-year-old female, who had some house calls on with history of diabetes, hypertension, dementia, COPD, seizures, anemia. She had been seen on house calls recently, doing well. She is eating very well and has a good appetite and not always compliant with her diet. PAST MEDICAL HISTORY: She has hypertension. She has bilateral cataract, dementia, seizure history, type 2 diabetes, had blood transfusion, anemia, and colon cancer in the past. She had falls, reflux, depression. PAST SURGICAL HISTORY: She had cholecystectomy. FAMILY HISTORY: She has hypertension and diabetes in the family. SOCIAL HISTORY: Former smoker. No alcohol. No drugs. ALLERGIES: SHE HAS ALLERGIES TO PENICILLIN AND SULFA. MEDICATIONS: She takes hydralazine; Nexium; insulin 70/30; Zestril; Lopressor, I will try and change her to metformin. REVIEW OF SYSTEMS: She is pleasant, alert, confused. No fevers. No vision changes. No photophobia. No hearing changes, nothing acute. No shortness of breath. No cough. No chest pain or palpitations. A little abdominal discomfort, heartburn which she always has; got a little nauseous but she always eats. No problems urinating. No muscle or back pain. Skin for the most part is intact. She does have headache. PHYSICAL EXAMINATION: VITAL SIGNS: She has 98.3 temperature, 81 pulse, 18 respiratory rate, 174/91 blood pressure, 98% O2 sat. HEENT: Head is atraumatic, normocephalic. Extraocular muscles are intact. Pupils are equally reactive to light and accommodation. Throat is moist. NECK: Supple. HEART: Regular rate. Normal S1 and S2. LUNGS: Decreased breath sounds, but clear to auscultation. ABDOMEN: Soft, nontender. Positive bowel sounds. No guarding, no rebound, no CVA tenderness. EXTREMITIES: No edema. NEUROLOGIC: GCS is 15. Cranial nerves II through XII grossly intact. Speech is normal. Presently confused. Alert and oriented x2. SKIN: Warm and dry. No apparent rashes or ulcers. LYMPHATICS: Thyroid midline. No palpable appreciable lymphadenopathy. LABORATORY DATA: She has a 9.7 white count, 11.9 hemoglobin, 35.2 hematocrit with 248 platelets. Lactate dehydrogenase is 42. Total creatine kinase is 66. Troponin I is less than 0.01. Sodium is 137, potassium 4.6, chloride 101. Carbon dioxide is 26, anion gap is 14, BUN 22, creatinine is 0.8. GFR is greater than 60. Sugar was 614, calcium 9.8, magnesium 2, total bilirubin is 0.7. Alkaline phosphatase is 127. Total protein is 7.8. Lipase is 149. Urine has moderate bacteria, I ordered another urinalysis. We will check her labs. Give her IV fluids. I will put her on medication for diabetes with coverage. She is on observation; hopefully, we can get her out tomorrow. She is here for high blood sugar. Dipak Hemphill DO
[2018-06-16 07:15] LABS: HEMOGLOBIN 12.2 g/dL (12.0-16.0); MEAN CORPUSCULAR HEMOGLOBIN 27.9 pg (25.0-35.0); MEAN PLATELET VOLUME 10.9 fl (7.0-11.0); RBC 4.38 10^6/uL (3.5-6.1); WHITE BLOOD COUNT 10.6 10^3/ul (4.5-11.0)
[2018-06-16] MEDS ORDERED: Insulin Human NPH/Reg 70/30 Vial(3 ml) SC SCH (07:30)
[2018-06-16 07:33] LABS: ALB/GLOB RATIO 0.9 (1.1-1.8); ALBUMIN 3.5 g/dL (3.0-4.8); ALT/SGPT 29 U/L (7-56); AST/SGOT 25 U/L (14-36); BLOOD UREA NITROGEN 15 mg/dL (7-21); CALCIUM 9.7 mg/dL (8.4-10.5); GFR AFRICAN-AMERICAN > 60; GFR NON-AFRICAN AMERICAN > 60
[2018-06-16 07:38] VITALS: BP 138/88; PULSE 80; RESP 18; TEMP 98.4; O2SAT 94
--- NOTE | 2018-06-16 10:13 | PN ---
DATE: 06/16/2018 ENDO FOLLOWUP NOTE LOCATION: In room 567. SUBJECTIVE: This is an 88-year-old female with recent uncontrolled type 2 insulin-requiring diabetes, presenting here with marked hyperglycemic accelerations and glucose levels over 500 with associated generalized body weakness and progressive dizziness and lightheadedness and is now being followed closely for metabolic management. Her glycemic levels are fluctuating, but much improved at this time after the initiation of a premixed insulin regimen as given. Her glucose levels overnight have ranged from 160-191 mg/dL. Her latest chemistry showed a BUN of 15, sodium 144, potassium 4.8, chloride 108, CO2 of 29, glucose 176 and creatinine 0.7. Her hemoglobin A1c is 10.8%, which is quite elevated and indicative of suboptimal metabolic control of her diabetic condition. ASSESSMENT: This is an 88-year-old female with uncontrolled and decompensated type 2 insulin-requiring diabetes, presenting here with extremes of glycemic fluctuations and recent hyperglycemic accelerations as noted thereof with underlying dehydration and prerenal azotemia. PLAN OF MANAGEMENT: We will continue the modified premixed insulin regimen with Humulin 70/30 given as 24 units before breakfast and 14 units before dinner as started last night. We will also try to hold off metformin if at all possible even with normal renal function because of the very advanced age of the patient and predilection for dehydration and lactic acidosis. We will obtain serial chemistries and supplement accordingly as needed. We will also continue the IV hydration as ordered. We will hold off any basal insulin for now to simplify her insulin regimen at home, especially with underlying dementia and lapses of forgetfulness. We will follow and advise accordingly. Jessika Nogueira MD
--- NOTE | 2018-06-16 11:23 | CT ---
Date of service: 06/16/2018 PROCEDURE: CT Abdomen without intravenous contrast HISTORY: ab pain COMPARISON: CT 02/18/2018 TECHNIQUE: Axial images of the abdomen from lung bases to iliac crest with and without intravenous contrast enhancement. Coronal and sagittal reformats generated. Oral contrast also administered. Intravenous contrast Dose: Radiation dose: Total exam DLP = 568 mGy-cm. This CT exam was performed using one or more of the following dose reduction techniques: Automated exposure control, adjustment of the mA and/or kV according to patient size, and/or use of iterative reconstruction technique. FINDINGS: LOWER THORAX: Unremarkable. LIVER: Unremarkable. No gross lesion or ductal dilatation. GALLBLADDER AND BILE DUCTS: Gallbladder removed PANCREAS: Unremarkable. No gross lesion or ductal dilatation. SPLEEN: Unremarkable. ADRENALS: Unremarkable. No mass. KIDNEYS AND URETERS: There is mild chronic hydronephrosis and hydroureter on the right. Nonobstructing stones are seen on the right. VASCULATURE: Unremarkable. No aortic aneurysm. BOWEL: Unremarkable. No obstruction. No gross mural thickening. Moderate constipation APPENDIX: Not visualize. Suture line indicating previous hemicolectomy PERITONEUM: Unremarkable. No free fluid. No free air. LYMPH NODES: Unremarkable. No enlarged lymph nodes. BONES: No acute fracture. OTHER FINDINGS: None. IMPRESSION: Chronic right-sided hydronephrosis and hydroureter. No acute intra-abdominal findings.
[2018-06-16] MEDS: Pantoprazole 40 mg EC Tab PO SCH (11:40)
--- NOTE | 2018-06-17 03:28 | DS ---
HISTORY OF PRESENT ILLNESS: I saw her this morning. She is pleasant. She is eating. She is walking. She is doing better. She is on Glucophage, Lopressor, Protonix and Zestril. PHYSICAL EXAMINATION: VITAL SIGNS: Temperature 98.4, 80 pulse, 138/88 blood pressure, 18 respiratory rate, 94-100% O2 sat on room air. HEENT: Head is atraumatic, normocephalic. GENERAL: She is alert and smiling, and comfortable. HEART: Regular rate. LUNGS: Clear to auscultation. ABDOMEN: Soft, nontender. Positive bowel sounds. EXTREMITIES: No edema. Physical therapy ____ at home and services fine. She has a white count of 10.6, hemoglobin 12.2, hematocrit 35.9, platelets of 242. She has 144 sodium, potassium 4.8, BUN is 15, creatinine 0.7, GFR is greater than 60, sugar is 160, calcium is 9.7. Total bili is 1.1, AST is 25, ALT is 29, alk phos 79, total protein 7.4. She is very well here. She is doing much better, I will be discharging her on observation status. She will be followed at home with the same medications and I will see her on a house call and I hope they can call me, I know them very well and she should do very well as long as she has her medications. She was seen for elevated blood sugar, Dipak Hemphill DO [id number]
== END 2018-06-16 14:05 | disposition home health service (06) ==
LOC: ED 23:33 → ERH 06-15 03:24 → 5RNO 06-15 05:56
PROVIDERS: ADMIT Family Medicine; ATTEND Family Medicine
DX: E11.00 Type 2 diabetes mellitus with hyperosmolarity without nonketotic hyperglycemic-hyperosmolar coma (NKHHC) (principal); E86.0 Dehydration; E11.40 Type 2 diabetes mellitus with diabetic neuropathy, unspecified; F03.90 Unspecified dementia, unspecified severity, without behavioral disturbance, psychotic disturbance, mood disturbance, and anxiety; I10 Essential (primary) hypertension; J44.9 Chronic obstructive pulmonary disease, unspecified; D64.9 Anemia, unspecified; E78.5 Hyperlipidemia, unspecified; G40.909 Epilepsy, unspecified, not intractable, without status epilepticus; F41.1 Generalized anxiety disorder; K21.9 Gastro-esophageal reflux disease without esophagitis; Z87.442 Personal history of urinary calculi; Z79.4 Long term (current) use of insulin; Z85.038 Personal history of other malignant neoplasm of large intestine; Z82.49 Family history of ischemic heart disease and other diseases of the circulatory system; Z87.891 Personal history of nicotine dependence; Z86.010 Personal history of colon polyps; Z83.3 Family history of diabetes mellitus
CPT/HCPCS: 36415; 71045; 74150; 80053; 81001; 82550; 82948; 83036; 83615; 83690; 83735; 84484; 85025; 85027; 87086; 93005; 96360; 96372; 97116; 97161; 99285; G0378; G8978; G8979; J7030; J7040